=== PATIENT | male | born 1940 | race Caucasian/White ===

== ENCOUNTER 2016-09-18 15:40 | Inpatient (IN) | payer MEDICARE, OTHER ==
[~2016-09-18] VITALS: Ht 165.1 cm; Wt 61.0 kg
[2016-09-18] MEDS ORDERED: ONDANSETRON 4MG/2ML VIAL (J2405) As Ordered ONE (16:06)
[2016-09-18 16:28] LABS: EOS # 0.2 K/mm3 (0.0-0.50); EOS % 1.8 % (0.0-3.0); LARGE UNSTAINED CELL % 0.3 % (0.0-4.0); LYMPH # 1.5 K/mm3 (1.5-4.5); LYMPH % 12.1 % (24.0-44.0); MEAN CORPUSCULAR HGB CONC 31.9 g/dl (32.0-36.5); MEAN CORPUSCULAR VOLUME 97.1 fl (80.0-96.0); MONO # 0.3 K/mm3 (0.0-0.8); MONO % 2.1 % (0.0-5.0); NEUTROPHILS # 10.2 K/mm3 (1.8-7.7); NEUTROPHILS % 83.6 % (36.0-66.0); PLATELET COUNT, AUTOMATED 201 k/mm3 (150-450); RED CELL DISTRIBUTION WIDTH 13.2 % (11.5-14.5); WHITE BLOOD COUNT 12.2 K/mm3 (4.0-10.0)
[2016-09-18 16:36] LABS: INR 1.08; INR 1.1
[2016-09-18] MEDS ORDERED: AMLO5TAB2 PO (16:50)
[2016-09-18] MEDS ORDERED: RAMI5CA PO (16:50)
[2016-09-18] MEDS ORDERED: ATOR40TA PO (16:50)
[2016-09-18] MEDS ORDERED: VITA-122 PO (16:50)
[2016-09-18] MEDS ORDERED: ASPI81CH PO (16:50)
[2016-09-18 16:53] LABS: ANION GAP 16 MEQ/L (8-16); BLOOD UREA NITROGEN 24 MG/DL (7-18); CALCIUM LEVEL 8.8 MG/DL (8.8-10.2); CARBON DIOXIDE LEVEL 20 MEQ/L (21-32); CHLORIDE LEVEL 110 MEQ/L (98-107); GLUCOSE, FASTING 210 MG/DL (83-110); POTASSIUM SERUM 4.6 MEQ/L (3.5-5.1); SODIUM LEVEL 146 MEQ/L (136-145)
--- NOTE | 2016-09-18 17:03 | ECGEPIP ---
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
[2016-09-18] MEDS ORDERED: ACETAMINOPHEN TAB 650MG DOSE (2X325MG) PO PRN (18:15)
--- NOTE | 2016-09-18 18:55 | HPEPDOC ---
General Date of Admission 09/18/2016 - 654PM Chief Complaint The patient is a 76-year-old male Presented to the ER via EMS after he had complaints of SOB and was found to be in ventricular tachycardia. History of Present Illness Patient is a 76 year old male with a PMHx of atrial fibrillation, CAD s/p stent (Hx of MA x 2), HTN, DLP, CKD3, Vitamin D deficiency who presented to the ER via EMS after he experienced SOB. Patient noted that today he bicycled to [facility] and back home. Once he got back home he noted that he began experiencing severe quick onset shortness of breath. He called EMS and they found he was in v.tach. Patient was awake the entire time, did not lose consciousness, denied dizziness, chest pain or palpitations. He noted that he just felt extremely short of breath. He denied any sweating. He did report nausea and vomiting. He vomited about 2-3 times, described as non-bloody, mostly just containing food. He also noted a productive cough that has been there for some time. He reports that he has a history of a heart attack in the past twice. He has received cardiac stenting as well, has never had any heart surgeries. He follows with Dr. Savage as an outpatient. He reports that he is compliant with medications, however he is not sure whether he should still be on anticoagulation. He reports taking Coumadin, but his INR currently is 1.0. He denied any history of bleeding episodes (including blood in stool or urine), denied any episodes of falls or head trauma. He denied any abdominal pain, constipation, diarrhea or urinary symptoms. He denied fever or chills. Home Medications Scheduled (Aspirin) 81 Mg Chw 81 MG PO DAILY (Reported) Amlodipine Besylate (Amlodipine Besylate) 5 Mg Tab 5 MG PO DAILY (Reported) Atorvastatin Calcium (Atorvastatin Calcium) 40 Mg Tab 40 MG PO DAILY (Reported ) Cholecalciferol (Vitamin D3) 1,000 Unit Tab 1,000 UNIT PO DAILY (Reported) Ramipril (Ramipril) 5 Mg Cap 5 MG PO DAILY (Reported) Allergies Coded Allergies: No Known Allergies (Unverified , 09/18/16) Past Medical History Medical History Atrial fibrillation, CAD s/p stent (Hx of MA x 2), HTN, DLP, CKD3, Vitamin D deficiency Surgical History None reported Family History Family History - Non-contributory Social History Social History - Denies the use of illicit drugs, Drinks socially, Smoker of 50 years at < 0.5ppd - Denies recent travel or sick contacts - Lives with sister - Occupation; Worked at [employer] Review of Symptoms Other systems Constitutional: Reports weight loss, No change in appetite, or recent trauma Eyes: No visual changes or eye pain Ears, Nose, Throat: Denies nose bleeds, or difficulty swallowing Cardiovascular: Denies chest pain, sweating, or orthopnea Respiratory: Positive productive cough and shortness of breath, No wheezing GI: Positive nausea and vomiting, No abdominal pain, diarrhea or constipation : Denies pain with urination or frequency Musculoskeletal: Denies joint pain or swelling Neuro / Psych: Denies muscle weakness or sensory loss Skin: No skin rashes noted All other review of systems negative; otherwise stated in history of present illness Vital Signs - Vitals: BP 102/59, HR 92, RR 20, Sat 98%RA, Temp 95.9F - General: Lying in bed, No acute distress, Speaking in full sentences, AAOx3 - HEENT: NC, AT, PERRLA, EOMI - CVS: Irregularly irregular, +S1S2 - Lungs: Fair air entry bilaterally, Clear to auscultation, No wheezing / rales / rhonchi - Abdomen: Soft, Non-distended, Non-tender, + Bowel sounds x 4 - Extremities: + PPx4, No lower extremity edema, No calf tenderness - Neuro: No focal motor or sensory deficit - Skin: No visible rashes Laboratory Data Labs 24H Laboratory Tests 2 09/18/16 16:11: Ethyl Alcohol Level < 0.003 09/18/16 16:13: Prothromb Time International Ratio 1.10, Prothrombin Time 14.3 09/18/16 16:14: Anion Gap 16, B-Type Natriuretic Peptide 381H, White Blood Count 12.2H, Red Blood Count 4.04L, Hemoglobin 12.5L, Hematocrit 39.2L, Mean Corpuscular Volume 97.1H, Mean Corpuscular Hemoglobin 31.0, Mean Corpuscular Hemoglobin Concent 31.9L, Red Cell Distribution Width 13.2, Platelet Count 201, Neutrophils (%) ( Auto) 83.6H, Lymphocytes (%) (Auto) 12.1L, Monocytes (%) (Auto) 2.1, Eosinophils (%) (Auto) 1.8, Basophils (%) (Auto) 0.0, Neutrophils # (Auto) 10.2H , Lymphocytes # (Auto) 1.5, Monocytes # (Auto) 0.3, Eosinophils # (Auto) 0.2, Basophils # (Auto) 0.0, Blood Urea Nitrogen 24H, Creatinine 1.80H, Sodium Level 146H, Potassium Level 4.6, Chloride Level 110H, Carbon Dioxide Level 20L, Calcium Level 8.8, Total Creatine Kinase 122, Creatine Kinase MB 3.2, Creatine Kinase MB Relative Index 2.62, Glomerular Filtration Rate 39.0L, Large Unclassified Cells # 0.0, Large Unclassified Cells % 0.3, Magnesium Level 2.0, Troponin I < 0.02 CBC/BMP Laboratory Tests 09/18/16 16:14 Calcium Level 8.8, Total Creatine Kinase 122, Red Blood Count 4.04 L, Mean Corpuscular Volume 97.1 H, Mean Corpuscular Hemoglobin 31.0, Mean Corpuscular Hemoglobin Concent 31.9 L, Red Cell Distribution Width 13.2, Neutrophils (%) ( Auto) 83.6 H, Lymphocytes (%) (Auto) 12.1 L, Monocytes (%) (Auto) 2.1, Eosinophils (%) (Auto) 1.8, Basophils (%) (Auto) 0.0, Neutrophils # (Auto) 10.2 H, Lymphocytes # (Auto) 1.5, Monocytes # (Auto) 0.3, Eosinophils # (Auto) 0.2, Basophils # (Auto) 0.0 Plan / VTE VTE Prophylaxis Ordered?: Yes Plan Plan Dyspnea likely 2/2 acute onset ventricular tachycardia possibly 2/2 ischemic heart disease - Reports that he exerted himself today resulting in shortness of breath - EMS found that he was in v. tach, had loaded him with amiodarone - Hx of 2 heart attacks in the past requiring stenting - EKG currently shows atrial fibrillation with HR at 100 - First set of troponin is negative - Will follow troponin trend - Will keep in ICU for monitoring - Will order ECHO - Discussed case with Dr. Aguiar (Cardiology); agreed to keep on monitoring for now, will c/w Amiodarone and anticoagulation for atrial fibrillation - Will touch base with regular substation designer Dr. Antecol in AM - c/w Amiodarone 400mg PO BID and Therapeutic Lovenox (Adjusted for GFR) Atrial fibrillation - currently is not on any rate control or anticoagulation - No reported history of bleed to indicate stopping anticoagulation - Started Lovenox therapeutic - c/w ASA 81 CAD s/p stent (Hx of MA x 2) - c/w ASA 81 HTN - will c/w amlodipine with holding parameters - Will hold lisinopril DLP - c/w atorvastatin CKD3 - Creatinine appears to be at baseline Vitamin D deficiency - c/w vitamin D supplementation Gastrointestinal prophylaxis - Will start protonix DVT prophylaxis - Will start full anticoagulation with Lovenox Will sign out case to OLY Bolaños MD Sep 18, 2016 18:55
[2016-09-18] MEDS ORDERED: NS 1,000 ML IV SCH (19:00)
[2016-09-18 19:17] LABS: INR 1.03
[2016-09-18] MEDS ORDERED: ENOXAPARIN 60 MG/0.6 ML SYR (J1650) SC SCH (21:00)
[2016-09-18] MEDS: AMIODARONE 200 MG TAB (PACERONE) PO SCH (21:00)
[2016-09-18] MEDS: METOPROLOL TART 25 MG TABLET PO SCH (21:00)
[2016-09-18] MEDS ORDERED: ENOXAPARIN 60 MG/0.6 ML SYR (J1650) As Ordered ONE (22:52)
[2016-09-18] MEDS ORDERED: METOPROLOL TART 25 MG TABLET As Ordered ONE (22:52)
--- NOTE | 2016-09-18 23:00 | IPNPDOC ---
Text Note Date of Service The patient was seen on 09/18/16. NOTE d/w Dr Aguiar regarding elevated trop and NSVT. c/w anticoagulation, beta dandre added. troponin elevated likely secondary to previous VT episode, No urgent need to transfer as per Dr Aguiar. will continue to follow VSInés, I+O VSInés, I+O Laboratory Tests 09/18/16 16:14 Calcium Level 8.8, Total Creatine Kinase 122, Red Blood Count 4.04 L, Mean Corpuscular Volume 97.1 H, Mean Corpuscular Hemoglobin 31.0, Mean Corpuscular Hemoglobin Concent 31.9 L, Red Cell Distribution Width 13.2, Neutrophils (%) ( Auto) 83.6 H, Lymphocytes (%) (Auto) 12.1 L, Monocytes (%) (Auto) 2.1, Eosinophils (%) (Auto) 1.8, Basophils (%) (Auto) 0.0, Neutrophils # (Auto) 10.2 H, Lymphocytes # (Auto) 1.5, Monocytes # (Auto) 0.3, Eosinophils # (Auto) 0.2, Basophils # (Auto) 0.0 LIZY DC MD Sep 18, 2016 23:00
--- NOTE | 2016-09-19 04:31 | EDDOCDS ---
Physician Documentation [facility] Name: Tushar Quiros Age: 76 yrs Sex: Male : 1940 Arrival Date: 09/18/2016 Time: 15:40 Bed Admit Hold Private MD: Disposition: 09/18 17:22 Critical Care:. osmar Disposition: 09/18/16 17:22 Hospitalization ordered by Nagi Clark for Inpatient Admission. Preliminary diagnosis are Cardiac arrhythmia, unspecified - v tach, Atrial fibrillation and flutter. - Bed requested for M ICU. - Status is Inpatient Admission. af2 - Condition is Stable. - Problem is new. - Symptoms are unchanged. Historical: - Allergies: no known allergies; - Home Meds: 1. Coumadin Oral Unknown 2. amlodipine 5 mg Oral tab 1 tab once daily 3. atorvastatin 40 mg oral tab 1 tab once daily 4. Vitamin D2 50,000 unit oral cap 5. ramipril 5 mg oral cap once daily 6. prednisone 20 mg Oral tab once daily 7. aspirin 81 mg Oral chew 1 tab once daily - PMHx: Atrial Fib; - PSHx: Heart Surgery; - Social history: Smoking status: Patient uses tobacco products, light tobacco smoker. No barriers to communication noted. - Family history: Not pertinent. - : The pt / caregiver states he / she is not on anticoagulants. Home medication list is obtained from the patient. - Exposure Risk Screening:: None identified. Vital Signs: 15:26 Pulse 72 MON; Pulse Ox 99% ; cjh 15:26 BP 101 / 54 (auto/); cjh 15:48 Pulse 89; Resp 20; Temp 95.9(TE); Pulse Ox 93% on 4 lpm NC; Weight 62.14 kg / 137 lbs rs6 (R); Height 5 ft. 5 in. (165.10 cm) (R); Pain 4/10; 15:49 Pulse 104 MON; Pulse Ox 95% ; cjh 15:50 BP 176 / 117 (auto/); cjh 16:31 BP 102 / 59 (auto/); cjh 16:32 Pulse 92 MON; Pulse Ox 98% ; cjh 16:44 BP 100 / 55 (auto/); cjh 16:44 Pulse 94 MON; Pulse Ox 99% ; cjh 17:14 BP 77 / 53 (auto/); cjh 17:14 Pulse 92 MON; Pulse Ox 98% ; cjh 17:27 Pulse 94 MON; Pulse Ox 98% ; cjh 17:28 BP 97 / 61 (auto/); cjh 17:44 BP 106 / 63 (auto/); cjh 17:44 Pulse 100 MON; Pulse Ox 99% ; cjh 17:48 Pulse 102 MON; Pulse Ox 98% ; cjh 17:49 BP 107 / 61 (auto/); cjh 17:56 Temp 96.2(O); lr2 18:14 BP 119 / 76 (auto/); cjh 18:14 Pulse 100 MON; Pulse Ox 99% ; cjh 18:44 BP 116 / 58 (auto/); cjh 18:44 Pulse 96 MON; Pulse Ox 97% ; cjh 19:14 BP 119 / 80 (auto/); cjh 19:14 Pulse 100 MON; Pulse Ox 98% ; cjh 19:44 BP 134 / 91 (auto/); cjh 19:44 Pulse 96 MON; Pulse Ox 99% ; cjh 20:14 BP 146 / 72 (auto/); cjh 20:14 Pulse 100 MON; Pulse Ox 100% ; cjh 20:43 Temp 97.8(O); sep 02:43 Pulse 96 MON; Pulse Ox 99% ; cjh 20:44 BP 136 / 66 (auto/); cjh 21:14 BP 127 / 84 (auto/); cjh 21:14 Pulse 96 MON; Pulse Ox 99% ; cjh 21:43 Pulse 96 MON; Pulse Ox 99% ; cjh 21:44 BP 135 / 65 (auto/); cjh 22:14 BP 141 / 75 (auto/); cjh 22:15 Pulse 102 MON; Temp 98.5(O); Pulse Ox 98% ; cjh 23:14 BP 131 / 74 (auto/); af2 23:15 Pulse 92 MON; Resp 18 S; Pulse Ox 96% on R/A; af2 23:44 BP 132 / 81 (auto/); af2 23:44 Pulse 90 MON; Resp 18 S; Pulse Ox 97% on R/A; af2 0206 00:14 BP 131 / 73 (auto/); af2 00:15 Pulse 78 MON; Resp 20 S; Pulse Ox 97% on R/A; af2 00:44 BP 135 / 88 (auto/); af2 00:45 Pulse 82 MON; Resp 18 S; Pulse Ox 98% on R/A; af2 01:14 BP 125 / 86 (auto/); af2 01:15 Pulse 78 MON; Resp 18 S; Pulse Ox 98% on R/A; af2 01:44 BP 138 / 95 (auto/); af2 01:45 Pulse 78 MON; Resp 18 S; Pulse Ox 96% on R/A; af2 02:14 BP 120 / 80 (auto/); af2 02:15 Pulse 74 MON; Resp 18 S; Pulse Ox 97% on R/A; af2 02:44 BP 131 / 79 (auto/); af2 02:44 Pulse 82 MON; Resp 18 S; af2 03:14 BP 131 / 84 (auto/); Resp 18 S; af2 03:15 Pulse 78 MON; af2 03:44 BP 139 / 74 (auto/); Pulse Ox 97% on R/A; af2 03:45 Pulse 78 MON; Resp 18 S; af2 04:29 Temp 97.9(TE); af2 09/18 15:48 Body Mass Index 22.80 (62.14 kg, 165.10 cm) rs6 MDM: 09/18 15:44 ECG WITH READING ER PHYS+CARDIAG ordered. EDMS 15:48 NS 0.9% 1000 ml IV at 100 mL/hr continuous ordered. ke 15:48 Ondansetron 4 mg IVP once ordered. ke 15:48 Instrument Repairer Helper/Pulse Ox/q 30 min VS ordered. ke 15:48 IV Saline Lock ordered. ke 15:48 Oxygen at 4L/Min NC or Home dosage ordered. ke 15:48 Rhythm Strip to chart ordered. ke 15:48 Undress patient appropriately for examination ordered. ke 15:50 B-Type Natiuretic Peptide Ordered. EDMS 15:50 Basic Metabolic Profile Ordered. EDMS 15:50 CBC with Diff Ordered. EDMS 15:50 Cardiac Injury Profile Ordered. EDMS 15:50 Prothrombin Time Profile\E\INR Ordered. EDMS 15:50 Troponin Ordered. EDMS 15:50 Magnesium Level Ordered. EDMS 15:51 portable chest Ordered. EDMS 15:59 PT/INR Ordered. EDMS 16:34 ETOH Ordered. EDMS 16:37 BED REQUEST+ADM ordered. EDMS 16:44 Financial registration complete. [id number] 16:49 [facility] Payment Agreement was scanned into [employer] and attached to record. [email or web address] 16:59 B-Type Natiuretic Peptide Reviewed. ke 16:59 Basic Metabolic Profile Reviewed. ke 16:59 CBC with Diff Reviewed. ke 16:59 Cardiac Injury Profile Reviewed. ke 16:59 Prothrombin Time Profile\E\INR Reviewed. ke 16:59 Troponin Reviewed. ke 16:59 Magnesium Level Reviewed. ke 16:59 PT/INR Reviewed. ke 16:59 ETOH Reviewed. ke 18:08 Admission / Observation Status ordered. EDMS 18:08 ECHOCARD,DOPPLER/COLOR FLOW ordered. EDMS 18:08 ELECTROCARDIOGRAM ADULT ordered. EDMS 18:08 NPO DIET ordered. EDMS 18:09 CARDIAC INJURY PROFILE Ordered. EDMS 18:09 TROPONIN Ordered. EDMS 18:09 PROTHROMBIN TIME PROFILE\E\INR Ordered. EDMS 18:09 CREATININE,RANDOM URINE Ordered. EDMS 18:09 SODIUM,RANDOM URINE Ordered. EDMS 18:09 OSMOLALITY,URINE Ordered. EDMS 18:40 ARTERIAL BLOOD GAS Ordered. EDMS 19:31 CARDIAC INJURY PROFILE Ordered. EDMS 19:31 CARDIAC INJURY PROFILE Ordered. EDMS 19:31 TROPONIN Ordered. EDMS 19:32 TROPONIN Ordered. EDMS 19:32 PROTHROMBIN TIME PROFILE\E\INR Ordered. EDMS 19:32 CBC WITH DIFFERENTIAL Ordered. EDMS 19:32 COMPLETE COMPHRENSIVE METABOLI Ordered. EDMS 19:32 MAGNESIUM LEVEL Ordered. EDMS 20:37 CARDIAC MARKER PANEL Ordered. EDMS 22:59 Enoxaparin 60 mg Sub-Q once; Ensure no Heparin in past 6hrs. Ensure any baseline labs [facility] are drawn. ordered. 22:59 Metoprolol (Tartrate) 25 mg PO once ordered. [facility] 23:26 amiodarone 400 mg PO once ordered. af2 09/19 04:14 MRSA SCREEN Ordered. EDMS Administered Medications: 09/18 16:01 Drug: NS 0.9% 1000 ml Route: IV; Rate: 100 mL/hr; Site: right forearm; [facility] 16:09 Drug: Ondansetron 4 mg [ondansetron HCl 2 mg/mL intravenous solution (2 mL)] Route: lf1 IVP; Site: right antecubital; 23:00 Drug: Enoxaparin 60 mg {Co-Signature: af2 (Madison Carter RN).} Route: Sub-Q; Site: left [facility] upper abdomen; 23:00 Drug: Metoprolol (Tartrate) 25 mg Route: PO; [facility] 23:58 Drug: amiodarone 400 mg [amiodarone 200 mg tablet (2 tabs)] Route: PO; af2 Critical Care Time: 17:22 Critical care time: Bedside Care: 10 minutes, Consultation: 20 minutes. Total time: 30 ke minutes Signatures: Dispatcher [employer] EDMS Dm Galarza, DIRECTOR OF ENTERPRISE STRATEGY DIRECTOR OF ENTERPRISE STRATEGY Jayant Copeland, Professor Of Law Unit ml3 Eileen Hyde RN RN [facility] Raul,Madison,RN RN af2 Estefanía Adame, Reg Reg [id number] Barbara Pruett RN lf1 Madison Carter RN af2 The chart was reviewed and I authenticate all verbal orders and agree with the evaluation and treatment provided.Attachments: 16:49 [facility] Payment Agreement [email or web address]
--- NOTE | 2016-09-19 04:31 | EDDOCDS ---
Nurse's Notes [facility] Name: Tushar Morris Age: 76 yrs Sex: Male : 1940 Arrival Date: 09/18/2016 Time: 15:40 Bed Admit Hold Private MD: Diagnosis: Cardiac arrhythmia, unspecified-v tach;Atrial fibrillation and flutter Presentation: 09/18 15:52 Presenting complaint: EMS states: called on scene by roommate who states patient [facility] returned from riding bike to [employer] and looks sick, patient reports SOB and abdominal pain. placed on monitor shows VTach, amiodarone and Zofran given in rig. Unable to determine if aspirin was taken prior to arrival. Adult Sepsis Screening: The patient does not have new or worsening altered mentation. Patient's respiratory rate is less than 22. Systolic blood pressure is greater than 100. Patient has a qSOFA score of 0- Negative Sepsis Screen. Suicide/Homicide risk assessment- Unable to assess, the patient is critically ill. 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 Transition of care: patient was not received from another setting of care. Care prior to arrival: See EMS report. Medications administered prior to arrival: zofran and amiodarone Saline lock initiated. Oxygen administered by EMS. 15:52 Acuity: RUDDY Level 2 [facility] 15:52 Method Of Arrival: Ambulance [facility] Triage Assessment: 15:57 General: Appears ill, Behavior is cooperative. [facility] 16:02 Pain: Location: abdomen Pain currently is 4 out of 10 on a pain scale. Pain began 4 cjh hours ago. The patient is triaged at the bedside. See Assessment in Nurses Notes section of ED record. Neurological: Level of Consciousness is awake, alert, Oriented to person, place, time. Cardiovascular: Chest pain is denied is described as none. radiates Does not radiate. episodes none began none. Respiratory: Airway is patent Respiratory effort is even, unlabored, Respiratory pattern is regular, symmetrical, Breath sounds with wheezes bilaterally. GI: Abdomen is distended, Bowel sounds Abd is tender to palpation X 4 quads. Firm. Derm: Skin is pale, Skin temperature is cool. Historical: - Allergies: no known allergies; - Home Meds: 1. Coumadin Oral Unknown 2. amlodipine 5 mg Oral tab 1 tab once daily 3. atorvastatin 40 mg oral tab 1 tab once daily 4. Vitamin D2 50,000 unit oral cap 5. ramipril 5 mg oral cap once daily 6. prednisone 20 mg Oral tab once daily 7. aspirin 81 mg Oral chew 1 tab once daily - PMHx: Atrial Fib; - PSHx: Heart Surgery; - Social history: Smoking status: Patient uses tobacco products, light tobacco smoker. No barriers to communication noted. - Family history: Not pertinent. - : The pt / caregiver states he / she is not on anticoagulants. Home medication list is obtained from the patient. - Exposure Risk Screening:: None identified. Screenin:26 Screening information is obtained from the patient. Fall risk: No risks identified. cjh Assistance ADL's: requires no assistance with activities of daily living. Abuse/DV Screen: The patient / caregiver reports he/she is: not in a situation that causes fear, pain or injury. Nutritional screening: No deficits noted. Advance Directives: Currently, there is a health care proxy, Aurelia Andreia, blaise [phone] cell. Advance Directives: There is no active DNR order. There is a living will, but a copy is not available at this time. There is an active Power of K9 Handler, aurelia escobar. home support is adequate. Assessment: 16:41 General: see bedside triage assessment. Cardiovascular: Rhythm is atrial fibrillation cjh Chest pain is denied. 17:19 General: family at bedside, warm blankets and lights applied, patient appears more cjh comfortable and states feeling less cold. 18:30 General: resting quietly, appears more comfortable, trebling and shaking has cjh diminished, no new problems or complaints, will continue to monitor. 19:50 General: Appears in no apparent distress, comfortable, Behavior is appropriate for age, cjh cooperative, patient states he is feeling much better and is awaiting admission, denies further needs, continues covered in blankets, no visible distress. 20:30 General: patient requesting a meal, discussed NPO status per admission order, patient cjh cooperative and pleasant. 21:30 General: Appears in no apparent distress, comfortable, Behavior is appropriate for age, cjh cooperative, turned, positioned and assisted with comfort on stretcher, urinal provided, patient voided very small amount clear yellow urine, no new problems or complaints voiced. Pain: Denies pain. Neurological: Level of Consciousness is awake, alert, Oriented to person, place, time. Respiratory: Airway is patent Respiratory effort is even, unlabored, Respiratory pattern is regular, symmetrical. Derm: Skin is pink, warm & dry. 23:00 General: Appears in no apparent distress, comfortable, Behavior is appropriate for age, af2 cooperative, Assumed care of pt at this time, pt resting quietly with eyes closed. RR even and unlabored. . Neurological: Level of Consciousness is awake, alert, Oriented to person, place, time. Cardiovascular: Rhythm is atrial fibrillation. Respiratory: Airway is patent Respiratory effort is even, unlabored. Derm: Skin is pink, warm & dry. 09/19 00:00 General: Appears in no apparent distress, comfortable, Behavior is appropriate for age, af2 cooperative. Neurological: Level of Consciousness is awake, alert, Oriented to person, place, time. Cardiovascular: Rhythm is atrial fibrillation. Respiratory: Airway is patent Respiratory effort is even, unlabored. Derm: Skin is normal. 01:06 General: Appears in no apparent distress, comfortable, Behavior is appropriate for age, af2 cooperative. Neurological: Level of Consciousness is awake, alert, Oriented to person, place, time. Cardiovascular: Rhythm is atrial fibrillation. Respiratory: Airway is patent Respiratory effort is even, unlabored. Derm: Skin is normal. 02:17 General: Appears in no apparent distress, comfortable, Behavior is appropriate for age, af2 cooperative. Neurological: Level of Consciousness is awake, alert. Cardiovascular: Rhythm is atrial fibrillation. Respiratory: Airway is patent Respiratory effort is even, unlabored. Derm: Skin is normal. 03:15 General: Appears in no apparent distress, comfortable, Behavior is appropriate for age, af2 cooperative. Neurological: Level of Consciousness is awake, alert, Oriented to person, place, time. Cardiovascular: Rhythm is atrial fibrillation. Respiratory: Airway is patent Respiratory effort is even, unlabored. Derm: Skin is normal. 04:16 General: Appears in no apparent distress, comfortable, Behavior is appropriate for age, af2 cooperative, pt resting quietly with eyes closed, rr even and unlabored. . Cardiovascular: Rhythm is atrial fibrillation. Respiratory: Airway is patent Respiratory effort is even, unlabored. Derm: Skin is normal. Vital Signs: 09/18 15:26 Pulse 72 MON; Pulse Ox 99% ; cjh 15:26 BP 101 / 54 (auto/); cjh 15:48 Pulse 89; Resp 20; Temp 95.9(TE); Pulse Ox 93% on 4 lpm NC; Weight 62.14 kg (R); Height rs6 5 ft. 5 in. (165.10 cm) (R); Pain 4/10; 15:49 Pulse 104 MON; Pulse Ox 95% ; cjh 15:50 BP 176 / 117 (auto/); cjh 16:31 BP 102 / 59 (auto/); cjh 16:32 Pulse 92 MON; Pulse Ox 98% ; cjh 16:44 BP 100 / 55 (auto/); cjh 16:44 Pulse 94 MON; Pulse Ox 99% ; cjh 17:14 BP 77 / 53 (auto/); cjh 17:14 Pulse 92 MON; Pulse Ox 98% ; cjh 17:27 Pulse 94 MON; Pulse Ox 98% ; cjh 17:28 BP 97 / 61 (auto/); cjh 17:44 BP 106 / 63 (auto/); cjh 17:44 Pulse 100 MON; Pulse Ox 99% ; cjh 17:48 Pulse 102 MON; Pulse Ox 98% ; cjh 17:49 BP 107 / 61 (auto/); cjh 17:56 Temp 96.2(O); lr2 18:14 BP 119 / 76 (auto/); cjh 18:14 Pulse 100 MON; Pulse Ox 99% ; cjh 18:44 BP 116 / 58 (auto/); cjh 18:44 Pulse 96 MON; Pulse Ox 97% ; cjh 19:14 BP 119 / 80 (auto/); cjh 19:14 Pulse 100 MON; Pulse Ox 98% ; cjh 19:44 BP 134 / 91 (auto/); cjh 19:44 Pulse 96 MON; Pulse Ox 99% ; cjh 20:14 BP 146 / 72 (auto/); cjh 20:14 Pulse 100 MON; Pulse Ox 100% ; cjh 20:43 Temp 97.8(O); sep 02:43 Pulse 96 MON; Pulse Ox 99% ; cjh 20:44 BP 136 / 66 (auto/); cjh 21:14 BP 127 / 84 (auto/); cjh 21:14 Pulse 96 MON; Pulse Ox 99% ; cjh 21:43 Pulse 96 MON; Pulse Ox 99% ; cjh 21:44 BP 135 / 65 (auto/); cjh 22:14 BP 141 / 75 (auto/); cjh 22:15 Pulse 102 MON; Temp 98.5(O); Pulse Ox 98% ; cjh 23:14 BP 131 / 74 (auto/); af2 23:15 Pulse 92 MON; Resp 18 S; Pulse Ox 96% on R/A; af2 23:44 BP 132 / 81 (auto/); af2 23:44 Pulse 90 MON; Resp 18 S; Pulse Ox 97% on R/A; af2 09/19 00:14 BP 131 / 73 (auto/); af2 00:15 Pulse 78 MON; Resp 20 S; Pulse Ox 97% on R/A; af2 00:44 BP 135 / 88 (auto/); af2 00:45 Pulse 82 MON; Resp 18 S; Pulse Ox 98% on R/A; af2 01:14 BP 125 / 86 (auto/); af2 01:15 Pulse 78 MON; Resp 18 S; Pulse Ox 98% on R/A; af2 01:44 BP 138 / 95 (auto/); af2 01:45 Pulse 78 MON; Resp 18 S; Pulse Ox 96% on R/A; af2 02:14 BP 120 / 80 (auto/); af2 02:15 Pulse 74 MON; Resp 18 S; Pulse Ox 97% on R/A; af2 02:44 BP 131 / 79 (auto/); af2 02:44 Pulse 82 MON; Resp 18 S; af2 03:14 BP 131 / 84 (auto/); Resp 18 S; af2 03:15 Pulse 78 MON; af2 03:44 BP 139 / 74 (auto/); Pulse Ox 97% on R/A; af2 03:45 Pulse 78 MON; Resp 18 S; af2 04:29 Temp 97.9(TE); af2 09/18 15:48 Body Mass Index 22.80 (62.14 kg, 165.10 cm) rs6 Vitals: 09/18 15:48 Log In Time N/A - ambulance arrival. rs6 ED Course: 15:26 The patient / caregiver is instructed regarding the plan of care and ED course. [facility] 15:26 Maintain field IV. Site clean & dry. Gauge & site: 20 gauge right forearm. 15:41 Patient visited by Jannet Nelson PCA. ar3 15:41 Patient moved to Waiting ar3 15:42 Patient moved to 4 ar3 15:47 [facility] ke 15:47 Patient visited by Dm Galarza FNP. ke 15:47 Patient visited by Dm Galarza FNP. ke 15:48 Pt greeted and oriented to ED. Patient advised of names of staff involved in care, rs6 location of call [place], wait times and NPO status. Patient has correct armband on for positive identification. Placed in gown. Bed in low position. Call light in reach. Side rails up X 1. wastewater treatment plant supervisor on. Pulse ox on. NIBP on. 15:49 Patient visited by Gina Gomez PCA. rs6 15:54 Triage Initiated cj 15:55 Patient visited by Gina Gomez PCA. rs6 15:55 EKG done. (by ED staff). Reviewed by Dm LEVY. rs6 16:35 Patient visited by Dm Galarza FNP. ke 16:49 [facility] Payment Agreement was scanned into Tile and attached to record. ks16 17:01 Patient visited by Dm Galarza FNP. ke 17:07 Verbal reassurance given. Warm blanket given. rs6 17:08 Patient visited by Gina Gomez PCA. rs6 17:19 EKG-ADULT Returned. EDMS 17:21 Nagi Clark MD is Hospitalizing Provider. ke 21:58 Patient moved to Admit Hold ml3 22:15 No procedures done that require assistance. [facility] 02 00:02 Patient visited by Madison Carter RN. af2 01:07 Patient visited by Madison CarterRN. af2 02:19 Patient visited by Madison Carter RN. af2 04:18 Patient visited by Madison Carter RN. af2 Administered Medications: 09/18 16:01 Drug: NS 0.9% 1000 ml Route: IV; Rate: 100 mL/hr; Site: right forearm; [facility] 16:09 Drug: Ondansetron 4 mg [ondansetron HCl 2 mg/mL intravenous solution (2 mL)] Route: lf1 IVP; Site: right antecubital; 23:00 Drug: Enoxaparin 60 mg {Co-Signature: af2 (Madison Carter RN).} Route: Sub-Q; Site: left [facility] upper abdomen; 23:00 Drug: Metoprolol (Tartrate) 25 mg Route: PO; [facility] 23:58 Drug: amiodarone 400 mg [amiodarone 200 mg tablet (2 tabs)] Route: PO; af2 Order Results: Lab Order: B-Type Natiuretic Peptide; SPEC'M 09/18/16 16:14 Test: BRAIN NATRIURETIC PEPTIDE; Value: 381; Range: <100; Abnormal: Above high normal; Units: PG/ML; Status: F Lab Order: Basic Metabolic Profile; SPEC' 09/18/16 16:14 Test: GLUCOSE, FASTING; Value: 210; Range: 83-110; Abnormal: Above high normal; Units: MG/DL; Status: F Test: BLOOD UREA NITROGEN; Value: 24; Range: 7-18; Abnormal: Above high normal; Units: MG/DL; Status: F Test: CREATININE FOR GFR; Value: 1.80; Range: 0.70-1.30; Abnormal: Above high normal; Units: MG/DL; Status: F Test: GLOMERULAR FILTRATION RATE; Value: 39.0; Range: >42; Abnormal: Below low normal; Status: F Test: SODIUM LEVEL; Value: 146; Range: 136-145; Abnormal: Above high normal; Units: MEQ/L; Status: F Test: POTASSIUM SERUM; Value: 4.6; Range: 3.5-5.1; Units: MEQ/L; Status: F Test: CHLORIDE LEVEL; Value: 110; Range: 98-107; Abnormal: Above high normal; Units: MEQ/L; Status: F Test: CARBON DIOXIDE LEVEL; Value: 20; Range: 21-32; Abnormal: Below low normal; Units: MEQ/L; Status: F Test: ANION GAP; Value: 16; Range: 8-16; Units: MEQ/L; Status: F Test: CALCIUM LEVEL; Value: 8.8; Range: 8.8-10.2; Units: MG/DL; Status: F Test Note: ; Units are mL/min/1.73 m2 Chronic Kidney Disease Staging per NKF: Stage I & II GFR >=60 Normal to Mildly Decreased Stage III GFR 30-59 Moderately Decreased Stage IV GFR 15-29 Severely Decreased Stage V GFR <15 Very Little GFR Left ESRD GFR <15 on HEALTH PROMOTION OFFICER Lab Order: CBC with Diff; SPEC'M 09/18/16 16:14 Test: WHITE BLOOD COUNT; Value: 12.2; Range: 4.0-10.0; Abnormal: Above high normal; Units: K/mm3; Status: F Test: RED BLOOD COUNT; Value: 4.04; Range: 4.30-6.10; Abnormal: Below low normal; Units: M/mm3; Status: F Test: HEMOGLOBIN; Value: 12.5; Range: 14.0-18.0; Abnormal: Below low normal; Units: g/dl; Status: F Test: HEMATOCRIT; Value: 39.2; Range: 42.0-52.0; Abnormal: Below low normal; Units: %; Status: F Test: MEAN CORPUSCULAR VOLUME; Value: 97.1; Range: 80.0-96.0; Abnormal: Above high normal; Units: fl; Status: F Test: MEAN CORPUSCULAR HEMOGLOBIN; Value: 31.0; Range: 27.0-33.0; Units: pg; Status: F Test: MEAN CORPUSCULAR HGB CONC; Value: 31.9; Range: 32.0-36.5; Abnormal: Below low normal; Units: g/dl; Status: F Test: RED CELL DISTRIBUTION WIDTH; Value: 13.2; Range: 11.5-14.5; Units: %; Status: F Test: PLATELET COUNT, AUTOMATED; Value: 201; Range: 150-450; Units: k/mm3; Status: F Test: NEUTROPHILS %; Value: 83.6; Range: 36.0-66.0; Abnormal: Above high normal; Units: %; Status: F Test: LYMPH %; Value: 12.1; Range: 24.0-44.0; Abnormal: Below low normal; Units: %; Status: F Test: MONO %; Value: 2.1; Range: 0.0-5.0; Units: %; Status: F Test: EOS %; Value: 1.8; Range: 0.0-3.0; Units: %; Status: F Test: BASO %; Value: 0.0; Range: 0.0-1.0; Units: %; Status: F Test: LARGE UNSTAINED CELL %; Value: 0.3; Range: 0.0-4.0; Units: %; Status: F Test: NEUTROPHILS #; Value: 10.2; Range: 1.8-7.7; Abnormal: Above high normal; Units: K/mm3; Status: F Test: LYMPH #; Value: 1.5; Range: 1.5-4.5; Units: K/mm3; Status: F Test: MONO #; Value: 0.3; Range: 0.0-0.8; Units: K/mm3; Status: F Test: EOS #; Value: 0.2; Range: 0.0-0.50; Units: K/mm3; Status: F Test: BASO #; Value: 0.0; Range: 0.0-0.2; Units: K/mm3; Status: F Test: LARGE UNSTAINED CELL #; Value: 0.0; Range: 0.0-0.4; Units: K/mm3; Status: F Lab Order: Cardiac Injury Profile; SPEC'M 09/18/16 16:14 Test: CPK CREATINE PHOSPHOKINASE; Value: 122; Range: 39-308; Units: U/L; Status: F Test: CK-MB VALUE MASS; Value: 3.2; Range: 0.0-3.6; Units: NG/ML; Status: F Test: MB/CK RELATIVE INDEX; Value: 2.62; Range: < OR =4; Status: F Test Note: ; DIAGNOSIS CRITERIA MMB ng/ml Relative Index (RI) NON-AMI < or = 5 N/A [place] > 5 < or = 4 AMI > 5 > 4 Lab Order: Prothrombin Time Profile\E\INR; SPEC'M 09/18/16 16:13 Test: PROTHROMBIN TIME; Value: 14.1; Range: 12.3-14.5; Units: SECONDS; Status: F Test: INR; Value: 1.08; Status: F Test Note: ; THERAPUTIC HUMAN INR VALUES INDICATIONS NORMAL RANGES PROPHYLAXIS/TREATMENT OF: VENOUS THROMBOSIS 2.0-3.0 PULMONARY EMBOLISM 2.0-3.0 PREVENTION OF SYSTEMIC EMBOLISM FROM: TISSUE HEART VALVES 2.0-3.0 ACUTE MYOCARDIAL INFARCTION 2.0-3.0 VALVULAR HEART DISEASE 2.0-3.0 ATRIAL FIBRILLATION 2.0-3.0 MECHANICAL VALVES(HIGH RISK) 2.5-3.5 RECURRENT MYOCARDIAL INFARCTION 2.5-3.5 Lab Order: Troponin; [facility] 09/18/16 16:14 Test: TROPONIN I; Value: < 0.02; Range: < 0.10; Units: NG/ML; Status: F Test Note: ; Troponin I Reference Interval for [employer] LOCI: 99th Percentile= 0.00-0.045 ng/ml Risk Stratification: <= 0.10 ng/ml Decreased Risk for Adverse Clinical Events. 0.10-1.50 ng/ml Increased Risk for Adverse Clinical Events. Evaluation of additional criterion and/or repeat testing in 2-6 hours is suggested to rule out myocardial damage. >= 1.50 ng/ml Indicative of Myocardial Injury. Lab Order: Magnesium Level; [facility] 09/18/16 16:14 Test: MAGNESIUM LEVEL; Value: 2.0; Range: 1.8-2.4; Units: MG/DL; Status: F Lab Order: PT/INR; [facility] 09/18/16 16:13 Test: PROTHROMBIN TIME; Value: 14.3; Range: 12.3-14.5; Units: SECONDS; Status: F Test: INR; Value: 1.10; Status: F Test Note: ; THERAPUTIC HUMAN INR VALUES INDICATIONS NORMAL RANGES PROPHYLAXIS/TREATMENT OF: VENOUS THROMBOSIS 2.0-3.0 PULMONARY EMBOLISM 2.0-3.0 PREVENTION OF SYSTEMIC EMBOLISM FROM: TISSUE HEART VALVES 2.0-3.0 ACUTE MYOCARDIAL INFARCTION 2.0-3.0 VALVULAR HEART DISEASE 2.0-3.0 ATRIAL FIBRILLATION 2.0-3.0 MECHANICAL VALVES(HIGH RISK) 2.5-3.5 RECURRENT MYOCARDIAL INFARCTION 2.5-3.5 Lab Order: ETOH; [facility] 16:11 Test: ETHYL ALCOHOL (ETHANOL); Value: < 0.003; Range: 0.000-0.010; Units: %; Status: F Lab Order: CARDIAC INJURY PROFILE; [facility] 21:56 Test: CPK CREATINE PHOSPHOKINASE; Value: 119; Range: 39-308; Units: U/L; Status: F Test: CK-MB VALUE MASS; Value: 5.3; Range: 0.0-3.6; Abnormal: Above high normal; Units: NG/ML; Status: F Test: MB/CK RELATIVE INDEX; Value: 4.45; Range: < OR =4; Abnormal: Above high normal; Status: F Test Note: ; DIAGNOSIS CRITERIA MMB ng/ml Relative Index (RI) NON-AMI < or = 5 N/A [place] > 5 < or = 4 AMI > 5 > 4 Lab Order: TROPONIN; [facility] 21:56 Test: TROPONIN I; Value: 0.50; Range: < 0.10; Abnormal: High; Units: NG/ML; Status: F Test Note: ; Troponin I Reference Interval for [employer]ep[employer] LOCI: 99th Percentile= 0.00-0.045 ng/ml Risk Stratification: <= 0.10 ng/ml Decreased Risk for Adverse Clinical Events. 0.10-1.50 ng/ml Increased Risk for Adverse Clinical Events. Evaluation of additional criterion and/or repeat testing in 2-6 hours is suggested to rule out myocardial damage. >= 1.50 ng/ml Indicative of Myocardial Injury. Lab Order: PROTHROMBIN TIME PROFILE\E\INR; [facility]09/[facility] 19:02 Test: PROTHROMBIN TIME; Value: 13.6; Range: 12.3-14.5; Units: SECONDS; Status: F Test: INR; Value: 1.03; Status: F Test Note: ; THERAPUTIC HUMAN INR VALUES INDICATIONS NORMAL RANGES PROPHYLAXIS/TREATMENT OF: VENOUS THROMBOSIS 2.0-3.0 PULMONARY EMBOLISM 2.0-3.0 PREVENTION OF SYSTEMIC EMBOLISM FROM: TISSUE HEART VALVES 2.0-3.0 ACUTE MYOCARDIAL INFARCTION 2.0-3.0 VALVULAR HEART DISEASE 2.0-3.0 ATRIAL FIBRILLATION 2.0-3.0 MECHANICAL VALVES(HIGH RISK) 2.5-3.5 RECURRENT MYOCARDIAL INFARCTION 2.5-3.5 Lab Order: CARDIAC MARKER PANEL; [facility] 20:41 Test: CPK CREATINE PHOSPHOKINASE; Value: 109; Range: 39-308; Units: U/L; Status: F Test: CK-MB VALUE MASS; Value: 4.3; Range: 0.0-3.6; Abnormal: Above high normal; Units: NG/ML; Status: F Test: MB/CK RELATIVE INDEX; Value: 3.94; Range: < OR =4; Status: F Test: TROPONIN I; Value: 0.31; Range: < 0.10; Abnormal: High; Units: NG/ML; Status: F Test Note: ; DIAGNOSIS CRITERIA MMB ng/ml Relative Index (RI) NON-AMI < or = 5 N/A [place] > 5 < or = 4 AMI > 5 > 4 Radiology Order: EKG-ADULT Test: EKG-ADULT REASON FOR EXAMINATION: irregular heart rate; Stationary ECG Study; [facility] - ED; ; Test Date: 2016-09-18; Pat Name: TUSHAR MORRIS Department:; Room: -; Gender: M Iron Carrier: juan carlos; : 1940 Requested By: DM LEVY; Order Number: [id number] Reading MD: Wilbert Walsh; Measurements; Intervals [place]; Rate: 100 P:; NV: 0 QRS: 58; QRSD: 106 T: 157; QT: 374; QTc: 483; Interpretive Statements; ATRIAL FIBRILLATION WITH RAPID VENTRICULAR RESPONSE; NONSPECIFIC ST T-WAVE ABNORMALITY; PRIOR INFERIOR INFARCT; SIMILAR TO 07/29/16; Electronically Signed On 09-18-2016 17:03:38 EST by Wilbert Walsh; Outcome: 17:22 Decision to Hospitalize by Provider. 09/19 04:27 Discharge Assessment: Patient awake, alert and oriented x 3. No cognitive and/or af2 functional deficits noted. Patient verbalized understanding of disposition instructions. patient administered narcotics - no. The following High Risk Discharge criteria are identified: None. Admitted to ICU accompanied by nurse, accompanied by tech, via stretcher, on monitor, with chart. Condition: stable. No special radiology studies were completed. Property :Personal belongings accompany Pt. 04:29 Patient left the ED. af2 Signatures: Dispatcher [employer] EDMS Taylor Mendoza RN RN jan Elsner, Karl, FNP FNP ke Lopresti, Mary-Elizabeth, [employer] [facility] ml3 Barbara Pruett RN RN lf1 Jannet Nelson, OFFICE SERVICES ASSOCIATE OFFICE SERVICES ASSOCIATE ar3 Eileen Hyde,RN RN cjh Gina Gomez, OFFICE SERVICES ASSOCIATE OFFICE SERVICES ASSOCIATE rs6 Raul,Madison,RN RN af2 Estefanía Adame, Reg Reg ks16 aSfia Vega lr2 Madison Carter RN af2 MTDD
[2016-09-19 04:41] VITALS: BP 146/79
--- NOTE | 2016-09-19 05:49 | REP ---
Sitting portable chest x-ray: Single view. History: Shortness of breath. Comparison study June 25, 2016. Findings: EKG monitoring electrodes overlie the chest. Heart is not enlarged. Lungs are well inflated and clear. Pleural angles are sharp. Pulmonary vasculature is not increased. The aorta is calcific and tortuous. There is an old healed fracture of the right clavicle. Degenerative changes are seen in the shoulders. Impression: No acute disease. Signed by Billy Hernandez MD 09/19/2016 02:24 P
[2016-09-19 06:10] LABS: BASO % 0.1 % (0.0-1.0); EOS # 0.4 K/mm3 (0.0-0.50); EOS % 3.6 % (0.0-3.0); LARGE UNSTAINED CELL # 0.1 K/mm3 (0.0-0.4); LARGE UNSTAINED CELL % 0.8 % (0.0-4.0); LYMPH # 1.5 K/mm3 (1.5-4.5); LYMPH % 13.4 % (24.0-44.0); MEAN CORPUSCULAR HEMOGLOBIN 31.2 pg (27.0-33.0); MEAN CORPUSCULAR HGB CONC 33.1 g/dl (32.0-36.5); MEAN CORPUSCULAR VOLUME 94.2 fl (80.0-96.0); MONO # 0.6 K/mm3 (0.0-0.8); MONO % 5.5 % (0.0-5.0); NEUTROPHILS # 8.3 K/mm3 (1.8-7.7); NEUTROPHILS % 76.4 % (36.0-66.0); PLATELET COUNT, AUTOMATED 192 k/mm3 (150-450); RED CELL DISTRIBUTION WIDTH 13.2 % (11.5-14.5); WHITE BLOOD COUNT 10.9 K/mm3 (4.0-10.0)
[2016-09-19 06:34] LABS: ALBUMIN 3.7 GM/DL (3.2-5.2); ALBUMIN/GLOBULIN RATIO 1.16 (1.00-1.93); BILIRUBIN,TOTAL 0.6 MG/DL (0.2-1.0); CALCIUM LEVEL 8.7 MG/DL (8.8-10.2); CREATININE FOR GFR 1.25 MG/DL (0.70-1.30); GLOMERULAR FILTRATION RATE 59.5 (>42); POTASSIUM SERUM 4.1 MEQ/L (3.5-5.1); TOTAL PROTEIN 6.9 GM/DL (6.4-8.2)
[2016-09-19 08:01] VITALS: BP 115/69
[2016-09-19 08:04] VITALS: BP 115/69
[2016-09-19] MEDS: METOPROLOL TART 25 MG TABLET PO SCH (08:05)
[2016-09-19] MEDS: AMIODARONE 200 MG TAB (PACERONE) PO SCH (08:05)
--- NOTE | 2016-09-19 08:11 | DS.PDOC ---
Discharge Summary General Date of Admission Sep 18, 2016 at 18:01 Date of Discharge 09/19/2016 Discharge Summary DATE OF ADMISSION: 09/18/2016 DATE OF DISCHARGE: 09/19/2016 PRIMARY CARE PHYSICIAN: Philly Primary geological aide: Dr. Savage DISCHARGE DIAGNOS(E)S: Sustained V. tach Elevated troponin HPI & HOSPITAL COURSE: 76-year-old male with chronic A. fib, CAD status post PCI, history of AR 2, hypertension, hyperlipidemia, CK D stage III, vitamin D deficiency who presented with shortness of breath. When EMS arrived to him, they noted that he was in sustained V. tach. He had associated nausea and vomiting, but no chest pain. EMS administered amiodarone, and by the time he arrived in the ER, the V. tach had broken and he was in A. fib at a rate of approximately 100. His initial troponin was negative. The patient was continued on oral amiodarone, as well as started on treatment dose Lovenox and beta dandre. Throughout the night , he had several episodes of nonsustained V. tach, and his troponin has bumped to 1.21. He still does not have any chest pain. His primary geological aide, Dr. Savage, is recommending transfer to [facility] for cardiac cath as well as possible defibrillator. I have spoken to Dr. Coulter at [facility], who has graciously accept the patient onto his service. At this time, we'll transfer the patient to Dr. Coulter at [facility] in [place]. The patient's creatinine this morning is 1.25, which appears to be around his baseline of the low to mid ones. PHYSICAL EXAMINATION ON DISCHARGE: VITAL SIGNS: Vital Signs Date Time Temp Pulse Resp B/P Pulse Ox O2 Delivery O2 Flow Rate FiO2 09/19/16 08:05 90 09/19/16 08:04 115/69 09/19/16 08:01 18 94 Room Air 09/19/16 04:41 97.3 GENERAL: Awake, alert, no acute distress CARDIOVASCULAR EXAMINATION: Irregularly irregular RESPIRATORY EXAMINATION: Prolonged expiratory phase, with diffuse wheezes ABDOMINAL EXAMINATION: Soft, nontender, nondistended. Bowel sounds present. EXTREMITIES: No clubbing or edema noted. 2+ pulses in the radial bilaterally. NEURO: Alert and oriented 3, normal speech DISPOSITION: Transfer to [facility] on the service of Dr. Coulter Patient was seen and examined by me on the day of discharge, and I spent a total time of greater than than 30 minutes on this discharge. Vital Signs/I&Os Vital Signs Date Time Temp Pulse Resp B/P Pulse Ox O2 Delivery O2 Flow Rate FiO2 09/19/16 08:05 90 09/19/16 08:04 115/69 09/19/16 08:01 18 94 Room Air 09/19/16 04:41 97.3 I&O- Last 24 Hours up to 6 AM 09/19/16 06:00 Intake Total 0 ml Output Total 300 ml Balance -300 ml Laboratory Data Labs 24H Laboratory Tests 2 09/18/16 16:11: Ethyl Alcohol Level < 0.003 09/18/16 16:13: Prothromb Time International Ratio 1.10, Prothrombin Time 14.3 09/18/16 16:14: Anion Gap 16, B-Type Natriuretic Peptide 381H, White Blood Count 12.2H, Red Blood Count 4.04L, Hemoglobin 12.5L, Hematocrit 39.2L, Mean Corpuscular Volume 97.1H, Mean Corpuscular Hemoglobin 31.0, Mean Corpuscular Hemoglobin Concent 31.9L, Red Cell Distribution Width 13.2, Platelet Count 201, Neutrophils (%) ( Auto) 83.6H, Lymphocytes (%) (Auto) 12.1L, Monocytes (%) (Auto) 2.1, Eosinophils (%) (Auto) 1.8, Basophils (%) (Auto) 0.0, Neutrophils # (Auto) 10.2H , Lymphocytes # (Auto) 1.5, Monocytes # (Auto) 0.3, Eosinophils # (Auto) 0.2, Basophils # (Auto) 0.0, Blood Urea Nitrogen 24H, Creatinine 1.80H, Sodium Level 146H, Potassium Level 4.6, Chloride Level 110H, Carbon Dioxide Level 20L, Calcium Level 8.8, Total Creatine Kinase 122, Creatine Kinase MB 3.2, Creatine Kinase MB Relative Index 2.62, Glomerular Filtration Rate 39.0L, Large Unclassified Cells # 0.0, Large Unclassified Cells % 0.3, Magnesium Level 2.0, Troponin I < 0.02 09/18/16 19:02: Prothromb Time International Ratio 1.03, Prothrombin Time 13.6 09/18/16 20:41: Creatine Kinase MB 4.3H, Creatine Kinase MB Relative Index 3.94, Total Creatine Kinase 109, Troponin I 0.31#H 09/18/16 21:56: Creatine Kinase MB 5.3H, Creatine Kinase MB Relative Index 4.45H, Total Creatine Kinase 119, Troponin I 0.50#H 09/19/16 05:40: Urine Random Creatinine 149.0, Urine Random Osmolality 773, Urine Random Sodium 162 09/19/16 05:56: Creatine Kinase MB 8.3H, Creatine Kinase MB Relative Index 4.97H, Total Creatine Kinase 167, Troponin I 1.21#H, Blood Urea Nitrogen 23H, Creatinine 1.25 , Sodium Level 145, Potassium Level 4.1, Chloride Level 111H, Carbon Dioxide Level 24, Calcium Level 8.7L, Aspartate Amino Transf (AST/SGOT) 27, Alanine Aminotransferase (ALT/SGPT) 28, Alkaline Phosphatase 87, Total Bilirubin 0.6, Total Protein 6.9, Albumin 3.7, Albumin/Globulin Ratio 1.16, Anion Gap 10, White Blood Count 10.9H, Red Blood Count 4.15L, Hemoglobin 13.0L, Hematocrit 39.1L, Mean Corpuscular Volume 94.2, Mean Corpuscular Hemoglobin 31.2, Mean Corpuscular Hemoglobin Concent 33.1, Red Cell Distribution Width 13.2, Platelet Count 192, Neutrophils (%) (Auto) 76.4H, Lymphocytes (%) (Auto) 13.4L, Monocytes (%) (Auto) 5.5H, Eosinophils (%) (Auto) 3.6H, Basophils (%) (Auto) 0.1 , Neutrophils # (Auto) 8.3H, Lymphocytes # (Auto) 1.5, Monocytes # (Auto) 0.6, Eosinophils # (Auto) 0.4, Basophils # (Auto) 0.0, Glomerular Filtration Rate 59.5, Large Unclassified Cells # 0.1, Large Unclassified Cells % 0.8, Magnesium Level 2.0 CBC/BMP Laboratory Tests 09/18/16 16:14 Calcium Level 8.8, Total Creatine Kinase 122, Red Blood Count 4.04 L, Mean Corpuscular Volume 97.1 H, Mean Corpuscular Hemoglobin 31.0, Mean Corpuscular Hemoglobin Concent 31.9 L, Red Cell Distribution Width 13.2, Neutrophils (%) ( Auto) 83.6 H, Lymphocytes (%) (Auto) 12.1 L, Monocytes (%) (Auto) 2.1, Eosinophils (%) (Auto) 1.8, Basophils (%) (Auto) 0.0, Neutrophils # (Auto) 10.2 H, Lymphocytes # (Auto) 1.5, Monocytes # (Auto) 0.3, Eosinophils # (Auto) 0.2, Basophils # (Auto) 0.0 09/19/16 05:56 Calcium Level 8.7 L, Total Creatine Kinase 167, Red Blood Count 4.15 L, Mean Corpuscular Volume 94.2, Mean Corpuscular Hemoglobin 31.2, Mean Corpuscular Hemoglobin Concent 33.1, Red Cell Distribution Width 13.2, Neutrophils (%) (Auto ) 76.4 H, Lymphocytes (%) (Auto) 13.4 L, Monocytes (%) (Auto) 5.5 H, Eosinophils (%) (Auto) 3.6 H, Basophils (%) (Auto) 0.1, Neutrophils # (Auto) 8.3 H, Lymphocytes # (Auto) 1.5, Monocytes # (Auto) 0.6, Eosinophils # (Auto) 0.4, Basophils # (Auto) 0.0, Aspartate Amino Transf (AST/SGOT) 27, Alanine Aminotransferase (ALT/SGPT) 28, Alkaline Phosphatase 87, Total Bilirubin 0.6, Total Protein 6.9, Albumin 3.7 Microbiology Microbiology 09/19/16 MRSA Screen, Received Pending Medications Scheduled (Aspirin) 81 Mg Chw 81 MG PO DAILY Amlodipine Besylate (Amlodipine Besylate) 5 Mg Tab 5 MG PO DAILY Atorvastatin Calcium (Atorvastatin Calcium) 40 Mg Tab 40 MG PO DAILY Cholecalciferol (Vitamin D3) 1,000 Unit Tab 1,000 UNIT PO DAILY Ramipril (Ramipril) 5 Mg Cap 5 MG PO DAILY Allergies Coded Allergies: No Known Allergies (Unverified , 09/18/16) ALEXANDRE AMES Sep 19, 2016 08:11
[2016-09-19] MEDS ORDERED: amLODIPine 5 MG TAB PO SCH (09:00)
[2016-09-19] MEDS ORDERED: ASPIRIN 81 MG CHEW TABLET PO SCH (09:00)
[2016-09-19] MEDS ORDERED: VITAMIN D 1,000 INTERNATIONAL UNITS TABLET PO SCH (09:00)
[2016-09-19] MEDS ORDERED: PANTOPRAZOLE 40MG TAB (PROTONIX) PO SCH (09:00)
[2016-09-19] MEDS ORDERED: ATORVASTATIN 20 MG TAB PO SCH (09:00)
--- NOTE | 2016-09-19 13:31 | ECGEPIP ---
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
--- NOTE | 2016-09-21 05:31 | EDDOCDS ---
Physician Documentation [facility] Name: Tushar Quiros Age: 76 yrs Sex: Male : 1940 Arrival Date: 09/18/2016 Time: 15:40 Bed Admit Hold Private MD: Disposition: 09/18 17:22 Critical Care:. osmar Disposition: 09/18/16 17:22 Hospitalization ordered by Nagi Clark for Inpatient Admission. Preliminary diagnosis are Cardiac arrhythmia, unspecified - v tach, Atrial fibrillation and flutter. - Bed requested for M ICU. - Status is Inpatient Admission. af2 - Condition is Stable. - Problem is new. - Symptoms are unchanged. Historical: - Allergies: no known allergies; - Home Meds: 1. Coumadin Oral Unknown 2. amlodipine 5 mg Oral tab 1 tab once daily 3. atorvastatin 40 mg oral tab 1 tab once daily 4. Vitamin D2 50,000 unit oral cap 5. ramipril 5 mg oral cap once daily 6. prednisone 20 mg Oral tab once daily 7. aspirin 81 mg Oral chew 1 tab once daily - PMHx: Atrial Fib; - PSHx: Heart Surgery; - Social history: Smoking status: Patient uses tobacco products, light tobacco smoker. No barriers to communication noted. - Family history: Not pertinent. - : The pt / caregiver states he / she is not on anticoagulants. Home medication list is obtained from the patient. - Exposure Risk Screening:: None identified. Vital Signs: 15:26 Pulse 72 MON; Pulse Ox 99% ; cjh 15:26 BP 101 / 54 (auto/); cjh 15:48 Pulse 89; Resp 20; Temp 95.9(TE); Pulse Ox 93% on 4 lpm NC; Weight 62.14 kg / 137 lbs rs6 (R); Height 5 ft. 5 in. (165.10 cm) (R); Pain 4/10; 15:49 Pulse 104 MON; Pulse Ox 95% ; cjh 15:50 BP 176 / 117 (auto/); cjh 16:31 BP 102 / 59 (auto/); cjh 16:32 Pulse 92 MON; Pulse Ox 98% ; cjh 16:44 BP 100 / 55 (auto/); cjh 16:44 Pulse 94 MON; Pulse Ox 99% ; cjh 17:14 BP 77 / 53 (auto/); cjh 17:14 Pulse 92 MON; Pulse Ox 98% ; cjh 17:27 Pulse 94 MON; Pulse Ox 98% ; cjh 17:28 BP 97 / 61 (auto/); cjh 17:44 BP 106 / 63 (auto/); cjh 17:44 Pulse 100 MON; Pulse Ox 99% ; cjh 17:48 Pulse 102 MON; Pulse Ox 98% ; cjh 17:49 BP 107 / 61 (auto/); cjh 17:56 Temp 96.2(O); lr2 18:14 BP 119 / 76 (auto/); cjh 18:14 Pulse 100 MON; Pulse Ox 99% ; cjh 18:44 BP 116 / 58 (auto/); cjh 18:44 Pulse 96 MON; Pulse Ox 97% ; cjh 19:14 BP 119 / 80 (auto/); cjh 19:14 Pulse 100 MON; Pulse Ox 98% ; cjh 19:44 BP 134 / 91 (auto/); cjh 19:44 Pulse 96 MON; Pulse Ox 99% ; cjh 20:14 BP 146 / 72 (auto/); cjh 20:14 Pulse 100 MON; Pulse Ox 100% ; cjh 20:43 Temp 97.8(O); sep 02:43 Pulse 96 MON; Pulse Ox 99% ; cjh 20:44 BP 136 / 66 (auto/); cjh 21:14 BP 127 / 84 (auto/); cjh 21:14 Pulse 96 MON; Pulse Ox 99% ; cjh 21:43 Pulse 96 MON; Pulse Ox 99% ; cjh 21:44 BP 135 / 65 (auto/); cjh 22:14 BP 141 / 75 (auto/); cjh 22:15 Pulse 102 MON; Temp 98.5(O); Pulse Ox 98% ; cjh 23:14 BP 131 / 74 (auto/); af2 23:15 Pulse 92 MON; Resp 18 S; Pulse Ox 96% on R/A; af2 23:44 BP 132 / 81 (auto/); af2 23:44 Pulse 90 MON; Resp 18 S; Pulse Ox 97% on R/A; af2 0206 00:14 BP 131 / 73 (auto/); af2 00:15 Pulse 78 MON; Resp 20 S; Pulse Ox 97% on R/A; af2 00:44 BP 135 / 88 (auto/); af2 00:45 Pulse 82 MON; Resp 18 S; Pulse Ox 98% on R/A; af2 01:14 BP 125 / 86 (auto/); af2 01:15 Pulse 78 MON; Resp 18 S; Pulse Ox 98% on R/A; af2 01:44 BP 138 / 95 (auto/); af2 01:45 Pulse 78 MON; Resp 18 S; Pulse Ox 96% on R/A; af2 02:14 BP 120 / 80 (auto/); af2 02:15 Pulse 74 MON; Resp 18 S; Pulse Ox 97% on R/A; af2 02:44 BP 131 / 79 (auto/); af2 02:44 Pulse 82 MON; Resp 18 S; af2 03:14 BP 131 / 84 (auto/); Resp 18 S; af2 03:15 Pulse 78 MON; af2 03:44 BP 139 / 74 (auto/); Pulse Ox 97% on R/A; af2 03:45 Pulse 78 MON; Resp 18 S; af2 04:29 Temp 97.9(TE); af2 09/18 15:48 Body Mass Index 22.80 (62.14 kg, 165.10 cm) rs6 MDM: 09/18 15:44 ECG WITH READING ER PHYS+CARDIAG ordered. EDMS 15:48 NS 0.9% 1000 ml IV at 100 mL/hr continuous ordered. ke 15:48 Ondansetron 4 mg IVP once ordered. ke 15:48 Fiberglass Pipe Covering Supervisor/Pulse Ox/q 30 min VS ordered. ke 15:48 IV Saline Lock ordered. ke 15:48 Oxygen at 4L/Min NC or Home dosage ordered. ke 15:48 Rhythm Strip to chart ordered. ke 15:48 Undress patient appropriately for examination ordered. ke 15:50 B-Type Natiuretic Peptide Ordered. EDMS 15:50 Basic Metabolic Profile Ordered. EDMS 15:50 CBC with Diff Ordered. EDMS 15:50 Cardiac Injury Profile Ordered. EDMS 15:50 Prothrombin Time Profile\E\INR Ordered. EDMS 15:50 Troponin Ordered. EDMS 15:50 Magnesium Level Ordered. EDMS 15:51 portable chest Ordered. EDMS 15:59 PT/INR Ordered. EDMS 16:34 ETOH Ordered. EDMS 16:37 BED REQUEST+ADM ordered. EDMS 16:44 Financial registration complete. [id number] 16:49 [facility] Payment Agreement was scanned into [employer] and attached to record. [email or web address] 16:59 B-Type Natiuretic Peptide Reviewed. ke 16:59 Basic Metabolic Profile Reviewed. ke 16:59 CBC with Diff Reviewed. ke 16:59 Cardiac Injury Profile Reviewed. ke 16:59 Prothrombin Time Profile\E\INR Reviewed. ke 16:59 Troponin Reviewed. ke 16:59 Magnesium Level Reviewed. ke 16:59 PT/INR Reviewed. ke 16:59 ETOH Reviewed. ke 18:08 Admission / Observation Status ordered. EDMS 18:08 ECHOCARD,DOPPLER/COLOR FLOW ordered. EDMS 18:08 ELECTROCARDIOGRAM ADULT ordered. EDMS 18:08 NPO DIET ordered. EDMS 18:09 CARDIAC INJURY PROFILE Ordered. EDMS 18:09 TROPONIN Ordered. EDMS 18:09 PROTHROMBIN TIME PROFILE\E\INR Ordered. EDMS 18:09 CREATININE,RANDOM URINE Ordered. EDMS 18:09 SODIUM,RANDOM URINE Ordered. EDMS 18:09 OSMOLALITY,URINE Ordered. EDMS 18:40 ARTERIAL BLOOD GAS Ordered. EDMS 19:31 CARDIAC INJURY PROFILE Ordered. EDMS 19:31 CARDIAC INJURY PROFILE Ordered. EDMS 19:31 TROPONIN Ordered. EDMS 19:32 TROPONIN Ordered. EDMS 19:32 PROTHROMBIN TIME PROFILE\E\INR Ordered. EDMS 19:32 CBC WITH DIFFERENTIAL Ordered. EDMS 19:32 COMPLETE COMPHRENSIVE METABOLI Ordered. EDMS 19:32 MAGNESIUM LEVEL Ordered. EDMS 20:37 CARDIAC MARKER PANEL Ordered. EDMS 22:59 Enoxaparin 60 mg Sub-Q once; Ensure no Heparin in past 6hrs. Ensure any baseline labs [facility] are drawn. ordered. 22:59 Metoprolol (Tartrate) 25 mg PO once ordered. [facility] 23:26 amiodarone 400 mg PO once ordered. af2 09/19 04:14 MRSA SCREEN Ordered. EDMS 11:40 T-Sheet-- Draft Copy was scanned into [employer] and attached to record. gb 11:40 ECG/EKG was scanned into [employer] and attached to record. gb 11:41 Trend VS was scanned into [employer] and attached to record. gb 11:41 Rhythm Strip was scanned into [employer] and attached to record. gb 11:41 PCR was scanned into [employer] and attached to record. gb Administered Medications: 09/18 16:01 Drug: NS 0.9% 1000 ml Route: IV; Rate: 100 mL/hr; Site: right forearm; [facility] 16:09 Drug: Ondansetron 4 mg [ondansetron HCl 2 mg/mL intravenous solution (2 mL)] Route: lf1 IVP; Site: right antecubital; 23:00 Drug: Enoxaparin 60 mg {Co-Signature: af2 (Madison Carter RN).} Route: Sub-Q; Site: left [facility] upper abdomen; 23:00 Drug: Metoprolol (Tartrate) 25 mg Route: PO; [facility] 23:58 Drug: amiodarone 400 mg [amiodarone 200 mg tablet (2 tabs)] Route: PO; af2 Critical Care Time: 17:22 Critical care time: Bedside Care: 10 minutes, Consultation: 20 minutes. Total time: 30 ke minutes Signatures: Dispatcher [employer] EDJuana Tan, Reg Reg gb Dm Galarza, TANK PROCESSOR TANK PROCESSOR Jayant Copeland, Director Of Strategic Communications Unit ml3 Eileen Hyde,RN RN [facility] Madison Carter,RN RN af2 Estefanía Adame, Reg Reg [id number] Barbara Pruett RN lf1 Madison Carter RN af2 The chart was reviewed and I authenticate all verbal orders and agree with the evaluation and treatment provided.Attachments: 16:49 [facility] Payment Agreement [email or web address] 09/19 11:40 T-Sheet-- Draft Copy gb 11:40 ECG/EKG gb Chart Complete MTDD
--- NOTE | 2016-09-21 05:31 | EDDOCDS ---
Nurse's Notes [facility] Name: Tushar Quiros Age: 76 yrs Sex: Male : 1940 Arrival Date: 09/18/2016 Time: 15:40 Bed Admit Hold Private MD: Diagnosis: Cardiac arrhythmia, unspecified-v tach;Atrial fibrillation and flutter Presentation: 09/18 15:52 Presenting complaint: EMS states: called on scene by roommate who states patient [facility] returned from riding bike to [employer] and looks sick, patient reports SOB and abdominal pain. placed on monitor shows VTach, amiodarone and Zofran given in rig. Unable to determine if aspirin was taken prior to arrival. Adult Sepsis Screening: The patient does not have new or worsening altered mentation. Patient's respiratory rate is less than 22. Systolic blood pressure is greater than 100. Patient has a qSOFA score of 0- Negative Sepsis Screen. Suicide/Homicide risk assessment- Unable to assess, the patient is critically ill. Status: Patient is not a environmental services assistant or dependent. Transition of care: patient was not received from another setting of care. Care prior to arrival: See EMS report. Medications administered prior to arrival: zofran and amiodarone Saline lock initiated. Oxygen administered by EMS. 15:52 Acuity: RUDDY Level 2 [facility] 15:52 Method Of Arrival: Ambulance [facility] Triage Assessment: 15:57 General: Appears ill, Behavior is cooperative. [facility] 16:02 Pain: Location: abdomen Pain currently is 4 out of 10 on a pain scale. Pain began 4 cjh hours ago. The patient is triaged at the bedside. See Assessment in Nurses Notes section of ED record. Neurological: Level of Consciousness is awake, alert, Oriented to person, place, time. Cardiovascular: Chest pain is denied is described as none. radiates Does not radiate. episodes none began none. Respiratory: Airway is patent Respiratory effort is even, unlabored, Respiratory pattern is regular, symmetrical, Breath sounds with wheezes bilaterally. GI: Abdomen is distended, Bowel sounds Abd is tender to palpation X 4 quads. Firm. Derm: Skin is pale, Skin temperature is cool. Historical: - Allergies: no known allergies; - Home Meds: 1. Coumadin Oral Unknown 2. amlodipine 5 mg Oral tab 1 tab once daily 3. atorvastatin 40 mg oral tab 1 tab once daily 4. Vitamin D2 50,000 unit oral cap 5. ramipril 5 mg oral cap once daily 6. prednisone 20 mg Oral tab once daily 7. aspirin 81 mg Oral chew 1 tab once daily - PMHx: Atrial Fib; - PSHx: Heart Surgery; - Social history: Smoking status: Patient uses tobacco products, light tobacco smoker. No barriers to communication noted. - Family history: Not pertinent. - : The pt / caregiver states he / she is not on anticoagulants. Home medication list is obtained from the patient. - Exposure Risk Screening:: None identified. Screenin:26 Screening information is obtained from the patient. Fall risk: No risks identified. cjh Assistance ADL's: requires no assistance with activities of daily living. Abuse/DV Screen: The patient / caregiver reports he/she is: not in a situation that causes fear, pain or injury. Nutritional screening: No deficits noted. Advance Directives: Currently, there is a health care proxy, Aurelia Andreia, blaise [phone] cell. Advance Directives: There is no active DNR order. There is a living will, but a copy is not available at this time. There is an active Power of Construction Engineer, aurelia escobar. home support is adequate. Assessment: 16:41 General: see bedside triage assessment. Cardiovascular: Rhythm is atrial fibrillation cjh Chest pain is denied. 17:19 General: family at bedside, warm blankets and lights applied, patient appears more cjh comfortable and states feeling less cold. 18:30 General: resting quietly, appears more comfortable, trebling and shaking has cjh diminished, no new problems or complaints, will continue to monitor. 19:50 General: Appears in no apparent distress, comfortable, Behavior is appropriate for age, cjh cooperative, patient states he is feeling much better and is awaiting admission, denies further needs, continues covered in blankets, no visible distress. 20:30 General: patient requesting a meal, discussed NPO status per admission order, patient cjh cooperative and pleasant. 21:30 General: Appears in no apparent distress, comfortable, Behavior is appropriate for age, cjh cooperative, turned, positioned and assisted with comfort on stretcher, urinal provided, patient voided very small amount clear yellow urine, no new problems or complaints voiced. Pain: Denies pain. Neurological: Level of Consciousness is awake, alert, Oriented to person, place, time. Respiratory: Airway is patent Respiratory effort is even, unlabored, Respiratory pattern is regular, symmetrical. Derm: Skin is pink, warm & dry. 23:00 General: Appears in no apparent distress, comfortable, Behavior is appropriate for age, af2 cooperative, Assumed care of pt at this time, pt resting quietly with eyes closed. RR even and unlabored. . Neurological: Level of Consciousness is awake, alert, Oriented to person, place, time. Cardiovascular: Rhythm is atrial fibrillation. Respiratory: Airway is patent Respiratory effort is even, unlabored. Derm: Skin is pink, warm & dry. 09/19 00:00 General: Appears in no apparent distress, comfortable, Behavior is appropriate for age, af2 cooperative. Neurological: Level of Consciousness is awake, alert, Oriented to person, place, time. Cardiovascular: Rhythm is atrial fibrillation. Respiratory: Airway is patent Respiratory effort is even, unlabored. Derm: Skin is normal. 01:06 General: Appears in no apparent distress, comfortable, Behavior is appropriate for age, af2 cooperative. Neurological: Level of Consciousness is awake, alert, Oriented to person, place, time. Cardiovascular: Rhythm is atrial fibrillation. Respiratory: Airway is patent Respiratory effort is even, unlabored. Derm: Skin is normal. 02:17 General: Appears in no apparent distress, comfortable, Behavior is appropriate for age, af2 cooperative. Neurological: Level of Consciousness is awake, alert. Cardiovascular: Rhythm is atrial fibrillation. Respiratory: Airway is patent Respiratory effort is even, unlabored. Derm: Skin is normal. 03:15 General: Appears in no apparent distress, comfortable, Behavior is appropriate for age, af2 cooperative. Neurological: Level of Consciousness is awake, alert, Oriented to person, place, time. Cardiovascular: Rhythm is atrial fibrillation. Respiratory: Airway is patent Respiratory effort is even, unlabored. Derm: Skin is normal. 04:16 General: Appears in no apparent distress, comfortable, Behavior is appropriate for age, af2 cooperative, pt resting quietly with eyes closed, rr even and unlabored. . Cardiovascular: Rhythm is atrial fibrillation. Respiratory: Airway is patent Respiratory effort is even, unlabored. Derm: Skin is normal. Vital Signs: 09/18 15:26 Pulse 72 MON; Pulse Ox 99% ; cjh 15:26 BP 101 / 54 (auto/); cjh 15:48 Pulse 89; Resp 20; Temp 95.9(TE); Pulse Ox 93% on 4 lpm NC; Weight 62.14 kg (R); Height rs6 5 ft. 5 in. (165.10 cm) (R); Pain 4/10; 15:49 Pulse 104 MON; Pulse Ox 95% ; cjh 15:50 BP 176 / 117 (auto/); cjh 16:31 BP 102 / 59 (auto/); cjh 16:32 Pulse 92 MON; Pulse Ox 98% ; cjh 16:44 BP 100 / 55 (auto/); cjh 16:44 Pulse 94 MON; Pulse Ox 99% ; cjh 17:14 BP 77 / 53 (auto/); cjh 17:14 Pulse 92 MON; Pulse Ox 98% ; cjh 17:27 Pulse 94 MON; Pulse Ox 98% ; cjh 17:28 BP 97 / 61 (auto/); cjh 17:44 BP 106 / 63 (auto/); cjh 17:44 Pulse 100 MON; Pulse Ox 99% ; cjh 17:48 Pulse 102 MON; Pulse Ox 98% ; cjh 17:49 BP 107 / 61 (auto/); cjh 17:56 Temp 96.2(O); lr2 18:14 BP 119 / 76 (auto/); cjh 18:14 Pulse 100 MON; Pulse Ox 99% ; cjh 18:44 BP 116 / 58 (auto/); cjh 18:44 Pulse 96 MON; Pulse Ox 97% ; cjh 19:14 BP 119 / 80 (auto/); cjh 19:14 Pulse 100 MON; Pulse Ox 98% ; cjh 19:44 BP 134 / 91 (auto/); cjh 19:44 Pulse 96 MON; Pulse Ox 99% ; cjh 20:14 BP 146 / 72 (auto/); cjh 20:14 Pulse 100 MON; Pulse Ox 100% ; cjh 20:43 Temp 97.8(O); sep 02:43 Pulse 96 MON; Pulse Ox 99% ; cjh 20:44 BP 136 / 66 (auto/); cjh 21:14 BP 127 / 84 (auto/); cjh 21:14 Pulse 96 MON; Pulse Ox 99% ; cjh 21:43 Pulse 96 MON; Pulse Ox 99% ; cjh 21:44 BP 135 / 65 (auto/); cjh 22:14 BP 141 / 75 (auto/); cjh 22:15 Pulse 102 MON; Temp 98.5(O); Pulse Ox 98% ; cjh 23:14 BP 131 / 74 (auto/); af2 23:15 Pulse 92 MON; Resp 18 S; Pulse Ox 96% on R/A; af2 23:44 BP 132 / 81 (auto/); af2 23:44 Pulse 90 MON; Resp 18 S; Pulse Ox 97% on R/A; af2 09/19 00:14 BP 131 / 73 (auto/); af2 00:15 Pulse 78 MON; Resp 20 S; Pulse Ox 97% on R/A; af2 00:44 BP 135 / 88 (auto/); af2 00:45 Pulse 82 MON; Resp 18 S; Pulse Ox 98% on R/A; af2 01:14 BP 125 / 86 (auto/); af2 01:15 Pulse 78 MON; Resp 18 S; Pulse Ox 98% on R/A; af2 01:44 BP 138 / 95 (auto/); af2 01:45 Pulse 78 MON; Resp 18 S; Pulse Ox 96% on R/A; af2 02:14 BP 120 / 80 (auto/); af2 02:15 Pulse 74 MON; Resp 18 S; Pulse Ox 97% on R/A; af2 02:44 BP 131 / 79 (auto/); af2 02:44 Pulse 82 MON; Resp 18 S; af2 03:14 BP 131 / 84 (auto/); Resp 18 S; af2 03:15 Pulse 78 MON; af2 03:44 BP 139 / 74 (auto/); Pulse Ox 97% on R/A; af2 03:45 Pulse 78 MON; Resp 18 S; af2 04:29 Temp 97.9(TE); af2 09/18 15:48 Body Mass Index 22.80 (62.14 kg, 165.10 cm) rs6 Vitals: 09/18 15:48 Log In Time N/A - ambulance arrival. rs6 ED Course: 15:26 The patient / caregiver is instructed regarding the plan of care and ED course. [facility] 15:26 Maintain field IV. Site clean & dry. Gauge & site: 20 gauge right forearm. [facility] 15:41 Patient visited by Jannet Nelson PCA. ar3 15:41 Patient moved to Waiting ar3 15:42 Patient moved to 4 ar3 15:47 Dm Galarza FNP is [facility]. ke 15:47 Patient visited by Dm Galarza FNP. ke 15:47 Patient visited by Dm Galarza FNP. ke 15:48 Pt greeted and oriented to ED. Patient advised of names of staff involved in care, rs6 location of call [place], wait times and NPO status. Patient has correct armband on for positive identification. Placed in gown. Bed in low position. Call light in reach. Side rails up X 1. quality assurance monitor on. Pulse ox on. NIBP on. 15:49 Patient visited by Gina Gomez PCA. rs6 15:54 Triage Initiated [facility] 15:55 Patient visited by Gina Gomez PCA. rs6 15:55 EKG done. (by ED staff). Reviewed by Dm LEVY. rs6 16:35 Patient visited by Dm Galarza FNP. ke 16:49 REPLACED BY [facility] Payment Agreement was scanned into [employer] and attached to record. ks16 17:01 Patient visited by Dm Galarza FNP. ke 17:07 Verbal reassurance given. Warm blanket given. rs6 17:08 Patient visited by Gina Gomez PCA. rs6 17:19 EKG-ADULT Returned. EDMS 17:21 Nagi Clark MD is Hospitalizing Provider. ke 21:58 Patient moved to Admit Hold ml3 22:15 No procedures done that require assistance. [facility] 02 00:02 Patient visited by Madison Carter RN. af2 01:07 Patient visited by Madison Carter,RN. af2 02:19 Patient visited by Madison Carter,KATE. af2 04:18 Patient visited by Madison Carter,KATE. af2 11:40 T-Sheet-- Draft Copy was scanned into [employer] and attached to record. gb 11:40 ECG/EKG was scanned into [employer] and attached to record. gb 11:41 Trend VS was scanned into [employer] and attached to record. gb 11:41 Rhythm Strip was scanned into [employer] and attached to record. gb 11:41 PCR was scanned into [employer] and attached to record. gb Administered Medications: 09/18 16:01 Drug: NS 0.9% 1000 ml Route: IV; Rate: 100 mL/hr; Site: right forearm; [facility] 16:09 Drug: Ondansetron 4 mg [ondansetron HCl 2 mg/mL intravenous solution (2 mL)] Route: lf1 IVP; Site: right antecubital; 23:00 Drug: Enoxaparin 60 mg {Co-Signature: af2 (Madison Carter RN).} Route: Sub-Q; Site: left [facility] upper abdomen; 23:00 Drug: Metoprolol (Tartrate) 25 mg Route: PO; [facility] 23:58 Drug: amiodarone 400 mg [amiodarone 200 mg tablet (2 tabs)] Route: PO; af2 Attachments: 11:41 Trend VS gb 11:41 Rhythm Strip gb Order Results: Lab Order: B-Type Natiuretic Peptide; SPEC'M 09/18/16 16:14 Test: BRAIN NATRIURETIC PEPTIDE; Value: 381; Range: <100; Abnormal: Above high normal; Units: PG/ML; Status: F Lab Order: Basic Metabolic Profile; SPEC'M 09/18/16 16:14 Test: GLUCOSE, FASTING; Value: 210; Range: 83-110; Abnormal: Above high normal; Units: MG/DL; Status: F Test: BLOOD UREA NITROGEN; Value: 24; Range: 7-18; Abnormal: Above high normal; Units: MG/DL; Status: F Test: CREATININE FOR GFR; Value: 1.80; Range: 0.70-1.30; Abnormal: Above high normal; Units: MG/DL; Status: F Test: GLOMERULAR FILTRATION RATE; Value: 39.0; Range: >42; Abnormal: Below low normal; Status: F Test: SODIUM LEVEL; Value: 146; Range: 136-145; Abnormal: Above high normal; Units: MEQ/L; Status: F Test: POTASSIUM SERUM; Value: 4.6; Range: 3.5-5.1; Units: MEQ/L; Status: F Test: CHLORIDE LEVEL; Value: 110; Range: 98-107; Abnormal: Above high normal; Units: MEQ/L; Status: F Test: CARBON DIOXIDE LEVEL; Value: 20; Range: 21-32; Abnormal: Below low normal; Units: MEQ/L; Status: F Test: ANION GAP; Value: 16; Range: 8-16; Units: MEQ/L; Status: F Test: CALCIUM LEVEL; Value: 8.8; Range: 8.8-10.2; Units: MG/DL; Status: F Test Note: ; Units are mL/min/1.73 m2 Chronic Kidney Disease Staging per NKF: Stage I & II GFR >=60 Normal to Mildly Decreased Stage III GFR 30-59 Moderately Decreased Stage IV GFR 15-29 Severely Decreased Stage V GFR <15 Very Little GFR Left ESRD GFR <15 on ACQUISITIONS LOGISTICS ANALYST Lab Order: CBC with Diff; SPEC'M 09/18/16 16:14 Test: WHITE BLOOD COUNT; Value: 12.2; Range: 4.0-10.0; Abnormal: Above high normal; Units: K/mm3; Status: F Test: RED BLOOD COUNT; Value: 4.04; Range: 4.30-6.10; Abnormal: Below low normal; Units: M/mm3; Status: F Test: HEMOGLOBIN; Value: 12.5; Range: 14.0-18.0; Abnormal: Below low normal; Units: g/dl; Status: F Test: HEMATOCRIT; Value: 39.2; Range: 42.0-52.0; Abnormal: Below low normal; Units: %; Status: F Test: MEAN CORPUSCULAR VOLUME; Value: 97.1; Range: 80.0-96.0; Abnormal: Above high normal; Units: fl; Status: F Test: MEAN CORPUSCULAR HEMOGLOBIN; Value: 31.0; Range: 27.0-33.0; Units: pg; Status: F Test: MEAN CORPUSCULAR HGB CONC; Value: 31.9; Range: 32.0-36.5; Abnormal: Below low normal; Units: g/dl; Status: F Test: RED CELL DISTRIBUTION WIDTH; Value: 13.2; Range: 11.5-14.5; Units: %; Status: F Test: PLATELET COUNT, AUTOMATED; Value: 201; Range: 150-450; Units: k/mm3; Status: F Test: NEUTROPHILS %; Value: 83.6; Range: 36.0-66.0; Abnormal: Above high normal; Units: %; Status: F Test: LYMPH %; Value: 12.1; Range: 24.0-44.0; Abnormal: Below low normal; Units: %; Status: F Test: MONO %; Value: 2.1; Range: 0.0-5.0; Units: %; Status: F Test: EOS %; Value: 1.8; Range: 0.0-3.0; Units: %; Status: F Test: BASO %; Value: 0.0; Range: 0.0-1.0; Units: %; Status: F Test: LARGE UNSTAINED CELL %; Value: 0.3; Range: 0.0-4.0; Units: %; Status: F Test: NEUTROPHILS #; Value: 10.2; Range: 1.8-7.7; Abnormal: Above high normal; Units: K/mm3; Status: F Test: LYMPH #; Value: 1.5; Range: 1.5-4.5; Units: K/mm3; Status: F Test: MONO #; Value: 0.3; Range: 0.0-0.8; Units: K/mm3; Status: F Test: EOS #; Value: 0.2; Range: 0.0-0.50; Units: K/mm3; Status: F Test: BASO #; Value: 0.0; Range: 0.0-0.2; Units: K/mm3; Status: F Test: LARGE UNSTAINED CELL #; Value: 0.0; Range: 0.0-0.4; Units: K/mm3; Status: F Lab Order: Cardiac Injury Profile; [facility]' 09/18/16 16:14 Test: CPK CREATINE PHOSPHOKINASE; Value: 122; Range: 39-308; Units: U/L; Status: F Test: CK-MB VALUE MASS; Value: 3.2; Range: 0.0-3.6; Units: NG/ML; Status: F Test: MB/CK RELATIVE INDEX; Value: 2.62; Range: < OR =4; Status: F Test Note: ; DIAGNOSIS CRITERIA MMB ng/ml Relative Index (RI) NON-AMI < or = 5 N/A [place] > 5 < or = 4 AMI > 5 > 4 Lab Order: Prothrombin Time Profile\E\INR; [facility] 09/18/16 16:13 Test: PROTHROMBIN TIME; Value: 14.1; Range: 12.3-14.5; Units: SECONDS; Status: F Test: INR; Value: 1.08; Status: F Test Note: ; THERAPUTIC HUMAN INR VALUES INDICATIONS NORMAL RANGES PROPHYLAXIS/TREATMENT OF: VENOUS THROMBOSIS 2.0-3.0 PULMONARY EMBOLISM 2.0-3.0 PREVENTION OF SYSTEMIC EMBOLISM FROM: TISSUE HEART VALVES 2.0-3.0 ACUTE MYOCARDIAL INFARCTION 2.0-3.0 VALVULAR HEART DISEASE 2.0-3.0 ATRIAL FIBRILLATION 2.0-3.0 MECHANICAL VALVES(HIGH RISK) 2.5-3.5 RECURRENT MYOCARDIAL INFARCTION 2.5-3.5 Lab Order: Troponin; [facility] 09/18/16 16:14 Test: TROPONIN I; Value: < 0.02; Range: < 0.10; Units: NG/ML; Status: F Test Note: ; Troponin I Reference Interval for [employer] LOCI: 99th Percentile= 0.00-0.045 ng/ml Risk Stratification: <= 0.10 ng/ml Decreased Risk for Adverse Clinical Events. 0.10-1.50 ng/ml Increased Risk for Adverse Clinical Events. Evaluation of additional criterion and/or repeat testing in 2-6 hours is suggested to rule out myocardial damage. >= 1.50 ng/ml Indicative of Myocardial Injury. Lab Order: Magnesium Level; [facility] 09/18/16 16:14 Test: MAGNESIUM LEVEL; Value: 2.0; Range: 1.8-2.4; Units: MG/DL; Status: F Lab Order: PT/INR; [facility] 09/18/16 16:13 Test: PROTHROMBIN TIME; Value: 14.3; Range: 12.3-14.5; Units: SECONDS; Status: F Test: INR; Value: 1.10; Status: F Test Note: ; THERAPUTIC HUMAN INR VALUES INDICATIONS NORMAL RANGES PROPHYLAXIS/TREATMENT OF: VENOUS THROMBOSIS 2.0-3.0 PULMONARY EMBOLISM 2.0-3.0 PREVENTION OF SYSTEMIC EMBOLISM FROM: TISSUE HEART VALVES 2.0-3.0 ACUTE MYOCARDIAL INFARCTION 2.0-3.0 VALVULAR HEART DISEASE 2.0-3.0 ATRIAL FIBRILLATION 2.0-3.0 MECHANICAL VALVES(HIGH RISK) 2.5-3.5 RECURRENT MYOCARDIAL INFARCTION 2.5-3.5 Lab Order: ETOH; [facility] 09/18/16 16:11 Test: ETHYL ALCOHOL (ETHANOL); Value: < 0.003; Range: 0.000-0.010; Units: %; Status: F Lab Order: CARDIAC INJURY PROFILE; [facility] 09/18/16 21:56 Test: CPK CREATINE PHOSPHOKINASE; Value: 119; Range: 39-308; Units: U/L; Status: F Test: CK-MB VALUE MASS; Value: 5.3; Range: 0.0-3.6; Abnormal: Above high normal; Units: NG/ML; Status: F Test: MB/CK RELATIVE INDEX; Value: 4.45; Range: < OR =4; Abnormal: Above high normal; Status: F Test Note: ; DIAGNOSIS CRITERIA MMB ng/ml Relative Index (RI) NON-AMI < or = 5 N/A [place] > 5 < or = 4 AMI > 5 > 4 Lab Order: TROPONIN; 09/18/16 21:56 Test: TROPONIN I; Value: 0.50; Range: < 0.10; Abnormal: High; Units: NG/ML; Status: F Test Note: ; Troponin I Reference Interval for [facility] LOCI: 99th Percentile= 0.00-0.045 ng/ml Risk Stratification: <= 0.10 ng/ml Decreased Risk for Adverse Clinical Events. 0.10-1.50 ng/ml Increased Risk for Adverse Clinical Events. Evaluation of additional criterion and/or repeat testing in 2-6 hours is suggested to rule out myocardial damage. >= 1.50 ng/ml Indicative of Myocardial Injury. Lab Order: PROTHROMBIN TIME PROFILE\E\INR; [facility] 09/18/16 19:02 Test: PROTHROMBIN TIME; Value: 13.6; Range: 12.3-14.5; Units: SECONDS; Status: F Test: INR; Value: 1.03; Status: F Test Note: ; THERAPUTIC HUMAN INR VALUES INDICATIONS NORMAL RANGES PROPHYLAXIS/TREATMENT OF: VENOUS THROMBOSIS 2.0-3.0 PULMONARY EMBOLISM 2.0-3.0 PREVENTION OF SYSTEMIC EMBOLISM FROM: TISSUE HEART VALVES 2.0-3.0 ACUTE MYOCARDIAL INFARCTION 2.0-3.0 VALVULAR HEART DISEASE 2.0-3.0 ATRIAL FIBRILLATION 2.0-3.0 MECHANICAL VALVES(HIGH RISK) 2.5-3.5 RECURRENT MYOCARDIAL INFARCTION 2.5-3.5 Lab Order: CARDIAC MARKER PANEL; SPEC'M 09/18/16 20:41 Test: CPK CREATINE PHOSPHOKINASE; Value: 109; Range: 39-308; Units: U/L; Status: F Test: CK-MB VALUE MASS; Value: 4.3; Range: 0.0-3.6; Abnormal: Above high normal; Units: NG/ML; Status: F Test: MB/CK RELATIVE INDEX; Value: 3.94; Range: < OR =4; Status: F Test: TROPONIN I; Value: 0.31; Range: < 0.10; Abnormal: High; Units: NG/ML; Status: F Test Note: ; DIAGNOSIS CRITERIA MMB ng/ml Relative Index (RI) NON-AMI < or = 5 N/A [place] > 5 < or = 4 AMI > 5 > 4 Radiology Order: EKG-ADULT Test: EKG-ADULT REASON FOR EXAMINATION: irregular heart rate; Stationary ECG Study; [facility] - ED; ; Test Date: 2016-09-18; Pat Name: TUSHAR ALEXANDRA Department:; Room: -; Gender: M [employer]hery Boss: juan carlos; : 1940 Requested By: DM LEVY; Order Number: [id number] Reading MD: Wilbert Walsh; Measurements; Intervals [place]; Rate: 100 P:; TX: 0 QRS: 58; QRSD: 106 T: 157; QT: 374; QTc: 483; Interpretive Statements; ATRIAL FIBRILLATION WITH RAPID VENTRICULAR RESPONSE; NONSPECIFIC ST T-WAVE ABNORMALITY; PRIOR INFERIOR INFARCT; SIMILAR TO 07/29/16; Electronically Signed On 09-18-2016 17:03:38 EST by Wilbert Walsh; Outcome: 09/18 17:22 Decision to Hospitalize by Provider. 09/19 04:27 Discharge Assessment: Patient awake, alert and oriented x 3. No cognitive and/or af2 functional deficits noted. Patient verbalized understanding of disposition instructions. patient administered narcotics - no. The following High Risk Discharge criteria are identified: None. Admitted to ICU accompanied by nurse, accompanied by tech, via stretcher, on monitor, with chart. Condition: stable. No special radiology studies were completed. Property :Personal belongings accompany Pt. 04:29 Patient left the ED. af2 Signatures: Dispatcher [employer] EDMS Taylor Mendoza, RN RN Juana Porter, Reg Reg gb Dm Galarza, ESTIMATOR PRINTING PLATE MAKING ESTIMATOR PRINTING PLATE MAKING Jayant Copeland, Clerical Coordinator Unit ml3 Barbara Pruett,RN RN lf1 Jannet Nelson, CONDUIT INSTALLER CONDUIT INSTALLER ar3 Eileen Hyde,RN RN [facility] Patricia, Gina, CONDUIT INSTALLER CONDUIT INSTALLER rs6 Madison Carter,RN RN af2 Estefanía Adame, Reg Reg ks16 Safia Vega lr2 Madison Carter RN af2 Chart Complete MTDD
--- NOTE | 2016-09-21 05:31 | EDDOCDS ---
Physician Documentation [facility] Name: Tushar Quiros Age: 76 yrs Sex: Male : 1940 Arrival Date: 09/18/2016 Time: 15:40 Bed Admit Hold Private MD: Disposition: 09/18 17:22 Critical Care:. osmar Disposition: 09/18/16 17:22 Hospitalization ordered by Nagi Clark for Inpatient Admission. Preliminary diagnosis are Cardiac arrhythmia, unspecified - v tach, Atrial fibrillation and flutter. - Bed requested for M ICU. - Status is Inpatient Admission. af2 - Condition is Stable. - Problem is new. - Symptoms are unchanged. Historical: - Allergies: no known allergies; - Home Meds: 1. Coumadin Oral Unknown 2. amlodipine 5 mg Oral tab 1 tab once daily 3. atorvastatin 40 mg oral tab 1 tab once daily 4. Vitamin D2 50,000 unit oral cap 5. ramipril 5 mg oral cap once daily 6. prednisone 20 mg Oral tab once daily 7. aspirin 81 mg Oral chew 1 tab once daily - PMHx: Atrial Fib; - PSHx: Heart Surgery; - Social history: Smoking status: Patient uses tobacco products, light tobacco smoker. No barriers to communication noted. - Family history: Not pertinent. - : The pt / caregiver states he / she is not on anticoagulants. Home medication list is obtained from the patient. - Exposure Risk Screening:: None identified. Vital Signs: 15:26 Pulse 72 MON; Pulse Ox 99% ; cjh 15:26 BP 101 / 54 (auto/); cjh 15:48 Pulse 89; Resp 20; Temp 95.9(TE); Pulse Ox 93% on 4 lpm NC; Weight 62.14 kg / 137 lbs rs6 (R); Height 5 ft. 5 in. (165.10 cm) (R); Pain 4/10; 15:49 Pulse 104 MON; Pulse Ox 95% ; cjh 15:50 BP 176 / 117 (auto/); cjh 16:31 BP 102 / 59 (auto/); cjh 16:32 Pulse 92 MON; Pulse Ox 98% ; cjh 16:44 BP 100 / 55 (auto/); cjh 16:44 Pulse 94 MON; Pulse Ox 99% ; cjh 17:14 BP 77 / 53 (auto/); cjh 17:14 Pulse 92 MON; Pulse Ox 98% ; cjh 17:27 Pulse 94 MON; Pulse Ox 98% ; cjh 17:28 BP 97 / 61 (auto/); cjh 17:44 BP 106 / 63 (auto/); cjh 17:44 Pulse 100 MON; Pulse Ox 99% ; cjh 17:48 Pulse 102 MON; Pulse Ox 98% ; cjh 17:49 BP 107 / 61 (auto/); cjh 17:56 Temp 96.2(O); lr2 18:14 BP 119 / 76 (auto/); cjh 18:14 Pulse 100 MON; Pulse Ox 99% ; cjh 18:44 BP 116 / 58 (auto/); cjh 18:44 Pulse 96 MON; Pulse Ox 97% ; cjh 19:14 BP 119 / 80 (auto/); cjh 19:14 Pulse 100 MON; Pulse Ox 98% ; cjh 19:44 BP 134 / 91 (auto/); cjh 19:44 Pulse 96 MON; Pulse Ox 99% ; cjh 20:14 BP 146 / 72 (auto/); cjh 20:14 Pulse 100 MON; Pulse Ox 100% ; cjh 20:43 Temp 97.8(O); sep 02:43 Pulse 96 MON; Pulse Ox 99% ; cjh 20:44 BP 136 / 66 (auto/); cjh 21:14 BP 127 / 84 (auto/); cjh 21:14 Pulse 96 MON; Pulse Ox 99% ; cjh 21:43 Pulse 96 MON; Pulse Ox 99% ; cjh 21:44 BP 135 / 65 (auto/); cjh 22:14 BP 141 / 75 (auto/); cjh 22:15 Pulse 102 MON; Temp 98.5(O); Pulse Ox 98% ; cjh 23:14 BP 131 / 74 (auto/); af2 23:15 Pulse 92 MON; Resp 18 S; Pulse Ox 96% on R/A; af2 23:44 BP 132 / 81 (auto/); af2 23:44 Pulse 90 MON; Resp 18 S; Pulse Ox 97% on R/A; af2 0206 00:14 BP 131 / 73 (auto/); af2 00:15 Pulse 78 MON; Resp 20 S; Pulse Ox 97% on R/A; af2 00:44 BP 135 / 88 (auto/); af2 00:45 Pulse 82 MON; Resp 18 S; Pulse Ox 98% on R/A; af2 01:14 BP 125 / 86 (auto/); af2 01:15 Pulse 78 MON; Resp 18 S; Pulse Ox 98% on R/A; af2 01:44 BP 138 / 95 (auto/); af2 01:45 Pulse 78 MON; Resp 18 S; Pulse Ox 96% on R/A; af2 02:14 BP 120 / 80 (auto/); af2 02:15 Pulse 74 MON; Resp 18 S; Pulse Ox 97% on R/A; af2 02:44 BP 131 / 79 (auto/); af2 02:44 Pulse 82 MON; Resp 18 S; af2 03:14 BP 131 / 84 (auto/); Resp 18 S; af2 03:15 Pulse 78 MON; af2 03:44 BP 139 / 74 (auto/); Pulse Ox 97% on R/A; af2 03:45 Pulse 78 MON; Resp 18 S; af2 04:29 Temp 97.9(TE); af2 09/18 15:48 Body Mass Index 22.80 (62.14 kg, 165.10 cm) rs6 MDM: 09/18 15:44 ECG WITH READING ER PHYS+CARDIAG ordered. EDMS 15:48 NS 0.9% 1000 ml IV at 100 mL/hr continuous ordered. ke 15:48 Ondansetron 4 mg IVP once ordered. ke 15:48 Component Assembler Supervisor/Pulse Ox/q 30 min VS ordered. ke 15:48 IV Saline Lock ordered. ke 15:48 Oxygen at 4L/Min NC or Home dosage ordered. ke 15:48 Rhythm Strip to chart ordered. ke 15:48 Undress patient appropriately for examination ordered. ke 15:50 B-Type Natiuretic Peptide Ordered. EDMS 15:50 Basic Metabolic Profile Ordered. EDMS 15:50 CBC with Diff Ordered. EDMS 15:50 Cardiac Injury Profile Ordered. EDMS 15:50 Prothrombin Time Profile\E\INR Ordered. EDMS 15:50 Troponin Ordered. EDMS 15:50 Magnesium Level Ordered. EDMS 15:51 portable chest Ordered. EDMS 15:59 PT/INR Ordered. EDMS 16:34 ETOH Ordered. EDMS 16:37 BED REQUEST+ADM ordered. EDMS 16:44 Financial registration complete. [email or web address] 16:49 [facility] Payment Agreement was scanned into [employer] and attached to record. [email or web address] 16:59 B-Type Natiuretic Peptide Reviewed. ke 16:59 Basic Metabolic Profile Reviewed. ke 16:59 CBC with Diff Reviewed. ke 16:59 Cardiac Injury Profile Reviewed. ke 16:59 Prothrombin Time Profile\E\INR Reviewed. ke 16:59 Troponin Reviewed. ke 16:59 Magnesium Level Reviewed. ke 16:59 PT/INR Reviewed. ke 16:59 ETOH Reviewed. ke 18:08 Admission / Observation Status ordered. EDMS 18:08 ECHOCARD,DOPPLER/COLOR FLOW ordered. EDMS 18:08 ELECTROCARDIOGRAM ADULT ordered. EDMS 18:08 NPO DIET ordered. EDMS 18:09 CARDIAC INJURY PROFILE Ordered. EDMS 18:09 TROPONIN Ordered. EDMS 18:09 PROTHROMBIN TIME PROFILE\E\INR Ordered. EDMS 18:09 CREATININE,RANDOM URINE Ordered. EDMS 18:09 SODIUM,RANDOM URINE Ordered. EDMS 18:09 OSMOLALITY,URINE Ordered. EDMS 18:40 ARTERIAL BLOOD GAS Ordered. EDMS 19:31 CARDIAC INJURY PROFILE Ordered. EDMS 19:31 CARDIAC INJURY PROFILE Ordered. EDMS 19:31 TROPONIN Ordered. EDMS 19:32 TROPONIN Ordered. EDMS 19:32 PROTHROMBIN TIME PROFILE\E\INR Ordered. EDMS 19:32 CBC WITH DIFFERENTIAL Ordered. EDMS 19:32 COMPLETE COMPHRENSIVE METABOLI Ordered. EDMS 19:32 MAGNESIUM LEVEL Ordered. EDMS 20:37 CARDIAC MARKER PANEL Ordered. EDMS 22:59 Enoxaparin 60 mg Sub-Q once; Ensure no Heparin in past 6hrs. Ensure any baseline labs [facility] are drawn. ordered. 22:59 Metoprolol (Tartrate) 25 mg PO once ordered. [facility] 23:26 amiodarone 400 mg PO once ordered. af2 09/19 04:14 MRSA SCREEN Ordered. EDMS 11:40 T-Sheet-- Draft Copy was scanned into [employer] and attached to record. gb 11:40 ECG/EKG was scanned into [employer] and attached to record. gb 11:41 Trend VS was scanned into [employer] and attached to record. gb 11:41 Rhythm Strip was scanned into [employer] and attached to record. gb 11:41 PCR was scanned into [employer] and attached to record. gb Administered Medications: 09/18 16:01 Drug: NS 0.9% 1000 ml Route: IV; Rate: 100 mL/hr; Site: right forearm; [facility] 16:09 Drug: Ondansetron 4 mg [ondansetron HCl 2 mg/mL intravenous solution (2 mL)] Route: lf1 IVP; Site: right antecubital; 23:00 Drug: Enoxaparin 60 mg {Co-Signature: af2 (Madison Carter RN).} Route: Sub-Q; Site: left [facility] upper abdomen; 23:00 Drug: Metoprolol (Tartrate) 25 mg Route: PO; [facility] 23:58 Drug: amiodarone 400 mg [amiodarone 200 mg tablet (2 tabs)] Route: PO; af2 Critical Care Time: 17:22 Critical care time: Bedside Care: 10 minutes, Consultation: 20 minutes. Total time: 30 ke minutes Signatures: Dispatcher [employer] EDJuana Tan, Reg Reg gb Dm Galarza, BLANKBOOK FORWARDER BLANKBOOK FORWARDER Jayant Copeland, Chemistry Research Assistant Unit ml3 Eileen Hyde,RN RN [facility] Madison Carter,RN RN af2 Estefanía Adame, Reg Reg [email or web address] Barbara Pruett RN lf1 Madison Carter RN af2 The chart was reviewed and I authenticate all verbal orders and agree with the evaluation and treatment provided.Attachments: 16:49 [facility] Payment Agreement [email or web address] 09/19 11:40 T-Sheet-- Draft Copy gb 11:40 ECG/EKG gb Chart Complete MTDD
== END 2016-09-19 09:29 | disposition short-term general hospital (02) | DRG 310 ==
LOC: M ED 15:40 → M ED INP 18:01 → M ICU 09-19 04:35
PROVIDERS: ADMIT Internal Medicine; ATTEND Hospitalist
DX: I47.2 Ventricular tachycardia (principal); R79.89 Other specified abnormal findings of blood chemistry; I48.91 Unspecified atrial fibrillation; I25.10 Atherosclerotic heart disease of native coronary artery without angina pectoris; I25.2 Old myocardial infarction; I12.9 Hypertensive chronic kidney disease with stage 1 through stage 4 chronic kidney disease, or unspecified chronic kidney disease; F17.210 Nicotine dependence, cigarettes, uncomplicated; E78.5 Hyperlipidemia, unspecified; N18.3 Chronic kidney disease, stage 3 (moderate); E55.9 Vitamin D deficiency, unspecified; Z95.9 Presence of cardiac and vascular implant and graft, unspecified; Z79.01 Long term (current) use of anticoagulants; Z79.82 Long term (current) use of aspirin; Z79.899 Other long term (current) drug therapy

== ENCOUNTER 2016-10-09 10:42 | Inpatient (IN) | payer MEDICARE ==
[~2016-10-09] VITALS: Ht 167.6 cm; Wt 59.5 kg
[~2016-10-09 10:42] MED LIST: AMLO5TAB2 PO; ASPI81CH PO; ATOR40TA PO; RAMI5CA PO; VITA-122 PO
--- NOTE | 2016-10-09 11:06 | REP ---
Clinical: Shortness of breath. Comparison: 09/18/2016. Findings: Trace basilar atelectasis cannot be excluded. Mediastinum and cardiac silhouette stable. No effusion. No pneumothorax. Skeletal structures intact. Impression: Trace basilar atelectasis cannot be excluded. Signed by Jalil Paredes MD 10/09/2016 10:57 A
[2016-10-09 11:08] LABS: ABG BASE EXCESS -2.4 (-2.0-2.0); ABG DEVICE NASAL CANN; ABG HCO3 20.1 MEQ/L (22.0-26.0); ABG STANDARD HCO3 22.4 MEQ/L (22.0-26.0); ABG TOTAL CO2 20.9 MEQ/L (23.0-31.0); ABG pH (ARTERIAL) 7.473 UNITS (7.350-7.450)
[2016-10-09 11:13] LABS: BASO % 0.1 % (0.0-1.0); EOS # 0.1 K/mm3 (0.0-0.50); LARGE UNSTAINED CELL # 0.1 K/mm3 (0.0-0.4); LARGE UNSTAINED CELL % 0.8 % (0.0-4.0); LYMPH # 0.9 K/mm3 (1.5-4.5); LYMPH % 6.2 % (24.0-44.0); MEAN CORPUSCULAR HEMOGLOBIN 31.5 pg (27.0-33.0); MEAN CORPUSCULAR HGB CONC 33.5 g/dl (32.0-36.5); MEAN CORPUSCULAR VOLUME 93.9 fl (80.0-96.0); NEUTROPHILS # 10.5 K/mm3 (1.8-7.7); NEUTROPHILS % 84.1 % (36.0-66.0); PLATELET COUNT, AUTOMATED 234 k/mm3 (150-450); RED CELL DISTRIBUTION WIDTH 13.2 % (11.5-14.5); WHITE BLOOD COUNT 12.5 K/mm3 (4.0-10.0)
[2016-10-09 11:23] LABS: INR 1.1
[2016-10-09 11:31] LABS: ALBUMIN 3.6 GM/DL (3.2-5.2); ALBUMIN/GLOBULIN RATIO 0.9 (1.00-1.93); BILIRUBIN,DIRECT 0.2 MG/DL (0.0-0.2); BILIRUBIN,TOTAL 0.8 MG/DL (0.2-1.0); CALCIUM LEVEL 8.5 MG/DL (8.8-10.2); CREATININE FOR GFR 1.56 MG/DL (0.70-1.30); GLOMERULAR FILTRATION RATE 46.1 (>42); MAGNESIUM LEVEL 2.4 MG/DL (1.8-2.4); PHOSPHORUS LEVEL 3.6 MG/DL (2.5-4.9); POTASSIUM SERUM 4.4 MEQ/L (3.5-5.1); TOTAL PROTEIN 7.6 GM/DL (6.4-8.2)
[2016-10-09] MEDS ORDERED: ISOVUE-370 76% 100ML VIAL (Q9967) As Ordered ONE (12:03)
--- NOTE | 2016-10-09 12:35 | REP ---
Clinical: Acute chest pain. Technique: Axial contrast enhanced images from the thoracic inlet to the upper abdomen using 100 ml Isovue 370 intravenous contrast material with coronal and sagittal re-formations. Findings: Satisfactory enhancement of the pulmonary vasculature is achieved and no filling defects are identified to suggest pulmonary embolus. Small left lower lobe consolidation along with bibasilar atelectasis (left greater than right) is appreciated. Subtle ground-glass changes in in the right apex remains stable compared to 2015 and likely represent chronic change. Atherosclerotic changes to the thoracic aorta and coronary arteries noted without aortic aneurysm. Heart is upper limits of normal. No pericardial effusion is appreciated. No obvious axillary, hilar, or mediastinal adenopathy. Surrounding musculoskeletal structures demonstrate age-related changes. Impression: 1. No evidence for pulmonary embolus. 2. Small left lower lobe pneumonia/consolidation with bibasilar atelectasis. Subtle air space disease to the right lower lobe may represent early pneumonia as well. Follow-up to resolution recommended. Signed by Jalil Paredes MD 10/09/2016 12:26 P
[2016-10-09] MEDS ORDERED: ZOSYN 3.375 GM VIAL (J2543) As Ordered ONE (12:39)
[2016-10-09] MEDS ORDERED: cefTRIAXone SOD 1 GM VIAL (J0696) As Ordered ONE (12:56)
[2016-10-09] MEDS ORDERED: ONDANSETRON 4MG/2ML VIAL (J2405) IV PRN (13:15)
[2016-10-09] MEDS ORDERED: AZITHROMYCIN INJ 500MG VIAL (J0456) As Ordered ONE (13:40)
[2016-10-09] MEDS ORDERED: METO-346 PO (14:11)
[2016-10-09] MEDS ORDERED: CEPH500C PO (14:11)
[2016-10-09] MEDS ORDERED: AMIO20TA PO (14:11)
[2016-10-09] MEDS ORDERED: ALBUTEROL SULFATE 2.5 MG/0.5 ML INH NEB SOLN NEB PRN (15:15)
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
--- NOTE | 2016-10-09 15:17 | EDDOCDS ---
Physician Documentation [facility] Name: Tushar Quiros Age: 76 yrs Sex: Male : 1940 Arrival Date: 10/09/2016 Time: 10:42 Bed 3 Private MD: Disposition: 10/09/16 12:56 Hospitalization ordered by Joyce Valdez for Inpatient Admission. Preliminary diagnosis is Pneumonia, unspecified organism. - Bed requested for PCU. - Status is Inpatient Admission. pml - Condition is Stable. - Problem is new. - Symptoms are unchanged. Historical: - Allergies: no known allergies; - Home Meds: 1. Keflex 500 mg Oral cap three times a day filled 09/27 2. ramipril 5 mg Oral cap once daily 3. amlodipine 5 mg Oral tab 1 tab once daily 4. amiodarone 200 mg Oral tab 1 tab 2 times per day 5. metoprolol tartrate 12.5mg Oral tab 1 tab 2 times per day 6. atorvastatin 40 mg oral tab 1 tab once daily not filled isnce 08/23 - PMHx: Atrial Fib; vtach; - PSHx: Heart Surgery; defibrillator placement; - Social history: Smoking status: Patient uses tobacco products, heavy tobacco smoker. No barriers to communication noted, The patient speaks fluent Japanese, Speaks appropriately for age. - Family history: Not pertinent. - : The pt / caregiver states he / she is not on anticoagulants. Home medication list is obtained from patients' pharmacy. - Exposure Risk Screening:: None identified. Vital Signs: 10/09 10:48 BP 117 / 63 (auto/); pml 10:49 Pulse 71 MON; Pulse Ox 94% ; pml 10:50 BP 117 / 63; Pulse 72; Resp 20; Temp 97.2(O); Pulse Ox 92% on R/A; Weight 58.97 kg / rn1 130.01 lbs (R); Height 5 ft. 6 in. (167.64 cm) (R); Pain 10/10; 11:15 Pulse 64 MON; Pulse Ox 96% ; pml 11:15 BP 175 / 81 (auto/); pml 11:30 Pulse 62 MON; Pulse Ox 97% ; pml 11:30 BP 188 / 88 (auto/); pml 11:45 Pulse 63 MON; Pulse Ox 98% ; pml 11:45 BP 160 / 78 (auto/); pml 12:00 Pulse 61 MON; Pulse Ox 97% ; pml 12:00 BP 171 / 87 (auto/); pml 12:05 Pulse 60 MON; Pulse Ox 97% ; pml 12:15 BP 161 / 80 (auto/); pml 12:30 Pulse 71 MON; Pulse Ox 98% ; pml 12:30 BP 157 / 69 (auto/); pml 12:45 Pulse 68 MON; Pulse Ox 98% ; pml 12:45 BP 155 / 77 (auto/); pml 13:00 Pulse 67 MON; Pulse Ox 98% ; pml 13:00 BP 155 / 67 (auto/); pml 13:15 Pulse 67 MON; Pulse Ox 98% ; pml 13:15 BP 152 / 71 (auto/); pml 13:30 Pulse 67 MON; Pulse Ox 97% ; pml 13:30 BP 135 / 73 (auto/); pml 13:45 Pulse 69 MON; pml 13:45 BP 168 / 77 (auto/); pml 14:00 Pulse 71 MON; Pulse Ox 95% ; pml 14:00 BP 160 / 74 (auto/); pml 14:15 Pulse 70 MON; Pulse Ox 96% ; pml 14:15 BP 149 / 66 (auto/); pml 14:30 Pulse 69 MON; Pulse Ox 98% ; pml 14:30 BP 131 / 68 (auto/); pml 15:14 BP 131 / 63; Pulse 63; Resp 20; Temp 97.5(T); Pulse Ox 96% on 6 lpm NC; pml 10:50 Body Mass Index 20.98 (58.97 kg, 167.64 cm) rn1 MDM: 10:44 Nuclear Physician/Pulse Ox/q 30 min VS ordered. br1 10:44 IV Saline Lock ordered. br1 10:44 Rhythm Strip to chart ordered. br1 10:44 Undress patient appropriately for examination ordered. br1 10:45 ECG WITH READING ER PHYS+CARDIAG ordered. EDMS 10:45 B-Type Natiuretic Peptide Ordered. EDMS 10:45 Basic Metabolic Profile Ordered. EDMS 10:45 CBC with Diff Ordered. EDMS 10:45 Cardiac Injury Profile Ordered. EDMS 10:45 Troponin Ordered. EDMS 10:46 Chest, 1 View Ordered. EDMS 10:49 MAGNESIUM LEVEL Ordered. EDMS 10:49 PHOSPHOROUS LEVEL Ordered. EDMS 10:56 Call Respiratory ordered. br1 10:57 -Arterial Blood Gas Ordered. EDMS 10:58 Call Respiratory complete. deg 11:10 -Arterial Blood Gas Reviewed. br1 11:11 PT/INR Ordered. EDMS 11:11 PTT Ordered. EDMS 11:15 LIPASE Ordered. EDMS 11:15 LIVER PROFILE Ordered. EDMS 11:15 CBC with Diff Reviewed. br1 11:53 B-Type Natiuretic Peptide Reviewed. br1 11:53 Basic Metabolic Profile Reviewed. br1 11:53 Cardiac Injury Profile Reviewed. br1 11:53 LIVER PROFILE Reviewed. br1 11:53 Troponin Reviewed. br1 11:53 MAGNESIUM LEVEL Reviewed. br1 11:53 PHOSPHOROUS LEVEL Reviewed. br1 11:53 PT/INR Reviewed. br1 11:53 PTT Reviewed. br1 11:53 LIPASE Reviewed. br1 11:53 Chest, 1 View Reviewed. br1 11:55 CT Chest Angio R/O PE Ordered. EDMS 12:32 -Blood Culture (Adults Only), peripheral from different site, or from device/port/PICC br1 etc. if present ordered. 12:32 -Blood Culture Ordered. EDMS 12:33 BED REQUEST+ADM ordered. EDMS 12:36 -Blood Culture (Adults Only), peripheral from different site, or from device/port/PICC deg etc. if present complete. 12:37 vancomycin 1 grams IVPB once over 60 mins; dilute in 250mL of NS or D5W ordered. br1 12:37 Piperacillin-Tazobactam 3.375 grams IVPB once over 30 mins; dilute in 50mL of NS or D5W br1 ordered. 12:38 BLOOD CULTURES Ordered. EDMS 12:48 Financial registration complete. mm15 12:54 cefTRIAXone 1 grams IVPB once over 30 mins; dilute in 50mL of NS or D5W ordered. br1 12:54 azithromycin 500 mg IVPB once over 1 hrs; dilute in 250mL of D5W or NS ordered. br1 13:14 [facility] [place] [facility] Payment Agreement was scanned into Verified Person and attached to record. mm15 13:18 Admission / Observation Status ordered. EDMS 13:18 REGULAR DIET ordered. EDMS 13:19 PHYSICAL THERAPY EVAL & TREAT ordered. EDMS 15:14 RESPIRATORY PANEL Ordered. EDMS Administered Medications: 12:54 Not Given (Dr. Valdez wishes CTX/Azithro): vancomycin 1 grams IVPB once over 60 mins; br1 dilute in 250mL of NS or D5W 12:54 Not Given (Dr. José Miguel johnson CTX/Azithro): Piperacillin-Tazobactam 3.375 grams IVPB once br1 over 30 mins; dilute in 50mL of NS or D5W 13:00 Drug: cefTRIAXone 1 grams [ceftriaxone 1 gram solution for injection] Route: IVPB; pml Infused Over: 30 mins; Site: left antecubital; 13:40 Follow up: IV Status: Completed infusion pml 13:45 Drug: azithromycin 500 mg [azithromycin 500 mg intravenous solution] Route: IVPB; pml Infused Over: 1 hrs; Site: left antecubital; 14:47 Follow up: IV Status: Completed infusion; IV Intake: 250ml pml Signatures: Dispatcher [employer] EDMS Michelle Jackson, Senior Animator Unit deg Parth Santos MD MD br1 Shawnee Huang RN RN pml Roosevelt Bernard mm15 The chart was reviewed and I authenticate all verbal orders and agree with the evaluation and treatment provided.Corrections: (The following items were deleted from the chart) 10:49 10:46 MAGNESIUM LEVEL+LAB ordered. EDMS EDMS 10:49 10:46 PHOSPHOROUS LEVEL+LAB ordered. EDMS EDMS 11:12 10:50 The pt / caregiver states he / she is on anticoagulants: coumadin. pml pml 11:14 11:12 LIVER PROFILE+LAB ordered. EDMS EDMS 11:14 11:12 LIPASE+LAB ordered. EDMS EDMS Attachments: 13:14 [facility] Payment Agreement mm15 MTDD
[2016-10-09 15:25] VITALS: BP 139/78
[2016-10-09] MEDS: ATORVASTATIN 20 MG TAB PO SCH (16:05)
[2016-10-09] MEDS: amLODIPine 5 MG TAB PO SCH (16:06)
[2016-10-09] MEDS: ASPIRIN 81 MG CHEW TABLET PO SCH (16:06)
[2016-10-09] MEDS: RAMIPRIL 5 MG CAP PO SCH (16:07)
[2016-10-09 20:00] VITALS: BP 123/78
[2016-10-09] MEDS: AMIODARONE 200 MG TAB (PACERONE) PO SCH (20:10)
[2016-10-09] MEDS: METOPROLOL TART 12.5 MG PER 1/2 TAB PO SCH (20:14)
[2016-10-09] MEDS: ACETAMINOPHEN 500 MG TAB PO PRN (20:20)
[2016-10-09] MEDS: IPRATROPIUM 0.5MG/ALBUTEROL 2.5MG INH SOL UD 3ML (DUONEB)(J7620) NEB SCH (20:42)
--- NOTE | 2016-10-09 20:47 | HPE ---
DATE OF ADMISSION: 10/09/2016 PRIMARY CARE PROVIDER: Nba Clark MD CHIEF COMPLAINT: Cough and cold for 3 days, shortness of breath for 1 day. PAST MEDICAL HISTORY: 1. Ventricular tachycardia, persistent, status post AICD defibrillator placement in September 2016. 2. Atrial fibrillation. 3. Coronary artery disease, status post myocardial infarction times two and status post stent. 4. Hypertension. 5. Hyperlipidemia. 6. Chronic kidney disease stage III. 7. Vitamin D deficiency. HISTORY OF PRESENT ILLNESS: This is a 76-year-old male with the above past medical history who had a defibrillator placed 2 weeks ago who presented to the hospital with 3 day history of upper respiratory tract symptoms with cough, cold, sore throat and shortness of breath for 1 day with wheezing. The patient had sick contact in the house, both his sister and [id number] have had upper respiratory tract symptoms. Initially, on presentation, the patient was noted to be hypoxic, requiring 6 liters by nasal cannula to maintain oxygen saturation above 95%. The patient was very wheezy and rhonchorous and received nebulizers. The patient had a CT angio done, which showed small left lower lobe pneumonia with bibasilar atelectasis and there may be early pneumonia in the right lower lobe also. There was no pulmonary embolism. The patient was then admitted to the hospitalist service for some type of pneumonia. PAST SURGICAL HISTORY: 1. AICD placement two weeks ago. 2. Cardiac stents in the past. 3. Prostate surgery for prostate cancer in the past. Additional past medical history: 1. Prostate cancer status post surgery in the past. 2. Diverticulosis of the ascending and rectosigmoid colon. 3. 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 SOCIAL HISTORY: The patient smokes about one pack in two weeks. Does not abuse alcohol or recreational drugs. FAMILY HISTORY: Nothing significant. HOME MEDICATIONS: - amiodarone 200 mg by mouth twice a day - amlodipine 5 mg by mouth daily - aspirin 81 mg by mouth daily - atorvastatin 40 mg by mouth daily - cholecalciferol 1000 units by mouth daily - metoprolol 12.5 mg by mouth twice a day - Enalapril 5 mg by mouth daily ALLERGIES: No known allergies. REVIEW OF SYSTEMS: All 10-point review of systems are negative except for those mentioned in the history of present illness. PHYSICAL EXAMINATION: VITAL SIGNS: Blood pressure 168/77, pulse 71, respiratory rate 18, pulse oximetry 94% with 5 liters nasal cannula. GENERAL: The patient is awake, alert and oriented times three. Sitting up in bed in no acute distress. HEENT: Normocephalic, atraumatic. Moist mucous membranes. Anicteric eyes. CHEST: Bilateral rhonchi and wheezing. There are also lots of conductive sounds from the throat. CARDIOVASCULAR: S1, S2 regular. No rub, murmur, or gallop. ABDOMEN: Soft, nontender. Bowel sounds present. EXTREMITIES: No edema. LABORATORY DATA: WBC 12.5 hemoglobin 11.9, platelets 234. Sodium 140, potassium 4.4, chloride 107, bicarbonate 27, BUN 25, creatinine 1.56, glucose 150, calcium 8.5. Liver function tests are normal. Cardiac enzymes are negative. BNP is 325. Lipase is 116. ASSESSMENT AND PLAN: This is a 76-year-old male admitted for pneumonia. PLAN: 1. For pneumonia, we will continue the patient on ceftriaxone and azithromycin. 2. Acute kidney injury. We will continue to monitor. Creatinine is slightly above baseline. 3. History of sustained ventricular tachycardia, status post AICD. We will continue with amiodarone. 4. History of atrial fibrillation. We will continue with metoprolol and amiodarone. 5. History of hyperlipidemia. We will continue with atorvastatin. 6. Possible history of hypertension. We will continue with amlodipine and Ramipril. 7. Deep vein thrombosis (DVT) prophylaxis has been ordered. 8. Gastrointestinal prophylaxis is not required. 9. Hypoxia. We will continue with oxygen supplementation and nebulizers with ipratropium and albuterol. We will also send a respiratory panel. 10. Coronary artery disease, status post stenting. We will continue with aspirin, beta dandre, atorvastatin.
[2016-10-09 23:42] VITALS: BP 105/75
[2016-10-10] MEDS: IPRATROPIUM 0.5MG/ALBUTEROL 2.5MG INH SOL UD 3ML (DUONEB)(J7620) NEB SCH ×4 (01:05→19:48)
[2016-10-10] MEDS: ACETAMINOPHEN 500 MG TAB PO PRN ×3 (03:44→16:45)
[2016-10-10 05:26] VITALS: BP 122/71
[2016-10-10 05:35] LABS: BASO % 0.1 % (0.0-1.0); EOS # 0.1 K/mm3 (0.0-0.50); EOS % 0.7 % (0.0-3.0); LARGE UNSTAINED CELL # 0.1 K/mm3 (0.0-0.4); LARGE UNSTAINED CELL % 1.2 % (0.0-4.0); LYMPH # 0.5 K/mm3 (1.5-4.5); MEAN CORPUSCULAR HEMOGLOBIN 31.1 pg (27.0-33.0); MEAN CORPUSCULAR HGB CONC 33.3 g/dl (32.0-36.5); MEAN CORPUSCULAR VOLUME 93.4 fl (80.0-96.0); MONO # 0.7 K/mm3 (0.0-0.8); NEUTROPHILS # 10.3 K/mm3 (1.8-7.7); NEUTROPHILS % 88.1 % (36.0-66.0); PLATELET COUNT, AUTOMATED 207 k/mm3 (150-450); WHITE BLOOD COUNT 11.7 K/mm3 (4.0-10.0)
[2016-10-10 05:58] LABS: ANION GAP 13 MEQ/L (8-16); BLOOD UREA NITROGEN 26 MG/DL (7-18); CALCIUM LEVEL 8.6 MG/DL (8.8-10.2); CARBON DIOXIDE LEVEL 21 MEQ/L (21-32); CHLORIDE LEVEL 107 MEQ/L (98-107); CREATININE FOR GFR 1.23 MG/DL (0.70-1.30); GLOMERULAR FILTRATION RATE > 60.0 (>42); GLUCOSE, FASTING 110 MG/DL (83-110); POTASSIUM SERUM 3.9 MEQ/L (3.5-5.1); SODIUM LEVEL 141 MEQ/L (136-145)
--- NOTE | 2016-10-10 07:45 | ECGEPIP ---
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
[2016-10-10 08:00] VITALS: BP 125/71
[2016-10-10] MEDS ORDERED: AZITHROMYCIN 250 MG TAB PO SCH (09:00)
[2016-10-10] MEDS: amLODIPine 5 MG TAB PO SCH (09:18)
[2016-10-10] MEDS: RAMIPRIL 5 MG CAP PO SCH (09:18)
[2016-10-10] MEDS: ATORVASTATIN 20 MG TAB PO SCH (09:18)
[2016-10-10] MEDS: AMIODARONE 200 MG TAB (PACERONE) PO SCH ×2 (09:18→21:16)
[2016-10-10] MEDS: ASPIRIN 81 MG CHEW TABLET PO SCH (09:18)
[2016-10-10] MEDS: METOPROLOL TART 12.5 MG PER 1/2 TAB PO SCH ×2 (09:19→21:16)
[2016-10-10] MEDS: PIPERACILLIN/TAZOBACTAM SOD 2.25 GM in D5W MINI-BAG PLUS 50 ML IV SCH ×2 (09:19→18:04)
[2016-10-10] MEDS: ENOXAPARIN 30 MG/0.3 ML SYR (J1650) SC SCH (09:23)
[2016-10-10] MEDS ORDERED: VANCOMYCIN HCL 500 MG in D5W MINI-BAG PLUS 100 ML IV ONE (10:00)
[2016-10-10] MEDS: guaiFENesin ER 600 MG TAB PO SCH ×2 (10:44→21:16)
[2016-10-10] MEDS ORDERED: VANCOMYCIN HCL 750 MG, VIAL MATE ADAPTER 1 EACH in D5W 250 ML IV ONE (11:00)
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
[2016-10-10 12:00] VITALS: BP 104/59
[2016-10-10] MEDS ORDERED: cefTRIAXone SOD 1 GM in D5W MINI-BAG PLUS 50 ML IV SCH (13:00)
[2016-10-10] MEDS: SLF 3 ML SYR IV SCH ×2 (15:08→22:55)
[2016-10-10 16:00] VITALS: BP 104/81
[2016-10-10] MEDS: SLF 3 ML SYR IV PRN (18:05)
[2016-10-10 20:00] VITALS: BP 115/73
[2016-10-11] VITALS (7 sets, daily range): BP systolic 95–120; BP diastolic 56–74
[2016-10-11] MEDS: SLF 3 ML SYR IV PRN (00:05)
[2016-10-11] MEDS: PIPERACILLIN/TAZOBACTAM SOD 2.25 GM in D5W MINI-BAG PLUS 50 ML IV SCH ×3 (00:05→17:12)
[2016-10-11] MEDS: ACETAMINOPHEN 500 MG TAB PO PRN ×3 (00:13→21:16)
[2016-10-11] MEDS: IPRATROPIUM 0.5MG/ALBUTEROL 2.5MG INH SOL UD 3ML (DUONEB)(J7620) NEB SCH ×4 (01:00→19:33)
[2016-10-11] MEDS: SLF 3 ML SYR IV SCH ×3 (05:22→21:15)
[2016-10-11 05:56] LABS: BASO % 0.2 % (0.0-1.0); EOS # 0.2 K/mm3 (0.0-0.50); EOS % 2.2 % (0.0-3.0); LARGE UNSTAINED CELL # 0.1 K/mm3 (0.0-0.4); LARGE UNSTAINED CELL % 1.1 % (0.0-4.0); LYMPH # 0.8 K/mm3 (1.5-4.5); LYMPH % 8.7 % (24.0-44.0); MEAN CORPUSCULAR HEMOGLOBIN 31.6 pg (27.0-33.0); MEAN CORPUSCULAR HGB CONC 33.9 g/dl (32.0-36.5); MEAN CORPUSCULAR VOLUME 93.2 fl (80.0-96.0); MONO # 0.6 K/mm3 (0.0-0.8); MONO % 7.8 % (0.0-5.0); NEUTROPHILS # 6.6 K/mm3 (1.8-7.7); NEUTROPHILS % 79.9 % (36.0-66.0); PLATELET COUNT, AUTOMATED 212 k/mm3 (150-450); RED CELL DISTRIBUTION WIDTH 13.1 % (11.5-14.5); WHITE BLOOD COUNT 8.2 K/mm3 (4.0-10.0)
[2016-10-11 06:07] LABS: CALCIUM LEVEL 8.1 MG/DL (8.8-10.2); CREATININE FOR GFR 1.24 MG/DL (0.70-1.30); POTASSIUM SERUM 3.6 MEQ/L (3.5-5.1)
[2016-10-11] MEDS: VANCOMYCIN HCL 1,000 MG, VIAL MATE ADAPTER 1 EACH in D5W 250 ML IV SCH (09:18)
[2016-10-11] MEDS: guaiFENesin ER 600 MG TAB PO SCH ×2 (09:19→21:15)
[2016-10-11] MEDS: ENOXAPARIN 30 MG/0.3 ML SYR (J1650) SC SCH (09:19)
[2016-10-11] MEDS: RAMIPRIL 5 MG CAP PO SCH (09:20)
[2016-10-11] MEDS: AMIODARONE 200 MG TAB (PACERONE) PO SCH ×2 (09:20→21:14)
[2016-10-11] MEDS: ASPIRIN 81 MG CHEW TABLET PO SCH (09:20)
[2016-10-11] MEDS: amLODIPine 5 MG TAB PO SCH (09:20)
[2016-10-11] MEDS: METOPROLOL TART 12.5 MG PER 1/2 TAB PO SCH ×2 (09:20→21:15)
[2016-10-11] MEDS: ATORVASTATIN 20 MG TAB PO SCH (09:21)
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
[2016-10-11] MEDS ORDERED: SENOKOT S TAB PO PRN (13:45)
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
--- NOTE | 2016-10-11 16:18 | EDDOCDS ---
Physician Documentation [facility] Name: Tushar Quiros Age: 76 yrs Sex: Male : 1940 Arrival Date: 10/09/2016 Time: 10:42 Bed 3 Private MD: Disposition: 10/09/16 12:56 Hospitalization ordered by Joyce Valdez for Inpatient Admission. Preliminary diagnosis is Pneumonia, unspecified organism. - Bed requested for PCU. - Status is Inpatient Admission. pml - Condition is Stable. - Problem is new. - Symptoms are unchanged. Historical: - Allergies: no known allergies; - Home Meds: 1. Keflex 500 mg Oral cap three times a day filled 09/27 2. ramipril 5 mg Oral cap once daily 3. amlodipine 5 mg Oral tab 1 tab once daily 4. amiodarone 200 mg Oral tab 1 tab 2 times per day 5. metoprolol tartrate 12.5mg Oral tab 1 tab 2 times per day 6. atorvastatin 40 mg oral tab 1 tab once daily not filled isnce 08/23 - PMHx: Atrial Fib; vtach; - PSHx: Heart Surgery; defibrillator placement; - Social history: Smoking status: Patient uses tobacco products, heavy tobacco smoker. No barriers to communication noted, The patient speaks fluent Chinese, Speaks appropriately for age. - Family history: Not pertinent. - : The pt / caregiver states he / she is not on anticoagulants. Home medication list is obtained from patients' pharmacy. - Exposure Risk Screening:: None identified. Vital Signs: 10/09 10:48 BP 117 / 63 (auto/); pml 10:49 Pulse 71 MON; Pulse Ox 94% ; pml 10:50 BP 117 / 63; Pulse 72; Resp 20; Temp 97.2(O); Pulse Ox 92% on R/A; Weight 58.97 kg / rn1 130.01 lbs (R); Height 5 ft. 6 in. (167.64 cm) (R); Pain 10/10; 11:15 Pulse 64 MON; Pulse Ox 96% ; pml 11:15 BP 175 / 81 (auto/); pml 11:30 Pulse 62 MON; Pulse Ox 97% ; pml 11:30 BP 188 / 88 (auto/); pml 11:45 Pulse 63 MON; Pulse Ox 98% ; pml 11:45 BP 160 / 78 (auto/); pml 12:00 Pulse 61 MON; Pulse Ox 97% ; pml 12:00 BP 171 / 87 (auto/); pml 12:05 Pulse 60 MON; Pulse Ox 97% ; pml 12:15 BP 161 / 80 (auto/); pml 12:30 Pulse 71 MON; Pulse Ox 98% ; pml 12:30 BP 157 / 69 (auto/); pml 12:45 Pulse 68 MON; Pulse Ox 98% ; pml 12:45 BP 155 / 77 (auto/); pml 13:00 Pulse 67 MON; Pulse Ox 98% ; pml 13:00 BP 155 / 67 (auto/); pml 13:15 Pulse 67 MON; Pulse Ox 98% ; pml 13:15 BP 152 / 71 (auto/); pml 13:30 Pulse 67 MON; Pulse Ox 97% ; pml 13:30 BP 135 / 73 (auto/); pml 13:45 Pulse 69 MON; pml 13:45 BP 168 / 77 (auto/); pml 14:00 Pulse 71 MON; Pulse Ox 95% ; pml 14:00 BP 160 / 74 (auto/); pml 14:15 Pulse 70 MON; Pulse Ox 96% ; pml 14:15 BP 149 / 66 (auto/); pml 14:30 Pulse 69 MON; Pulse Ox 98% ; pml 14:30 BP 131 / 68 (auto/); pml 15:14 BP 131 / 63; Pulse 63; Resp 20; Temp 97.5(T); Pulse Ox 96% on 6 lpm NC; pml 10:50 Body Mass Index 20.98 (58.97 kg, 167.64 cm) rn1 MDM: 10:44 Intake Clinician/Pulse Ox/q 30 min VS ordered. br1 10:44 IV Saline Lock ordered. br1 10:44 Rhythm Strip to chart ordered. br1 10:44 Undress patient appropriately for examination ordered. br1 10:45 ECG WITH READING ER PHYS+CARDIAG ordered. EDMS 10:45 B-Type Natiuretic Peptide Ordered. EDMS 10:45 Basic Metabolic Profile Ordered. EDMS 10:45 CBC with Diff Ordered. EDMS 10:45 Cardiac Injury Profile Ordered. EDMS 10:45 Troponin Ordered. EDMS 10:46 Chest, 1 View Ordered. EDMS 10:49 MAGNESIUM LEVEL Ordered. EDMS 10:49 PHOSPHOROUS LEVEL Ordered. EDMS 10:56 Call Respiratory ordered. br1 10:57 -Arterial Blood Gas Ordered. EDMS 10:58 Call Respiratory complete. deg 11:10 -Arterial Blood Gas Reviewed. br1 11:11 PT/INR Ordered. EDMS 11:11 PTT Ordered. EDMS 11:15 LIPASE Ordered. EDMS 11:15 LIVER PROFILE Ordered. EDMS 11:15 CBC with Diff Reviewed. br1 11:53 B-Type Natiuretic Peptide Reviewed. br1 11:53 Basic Metabolic Profile Reviewed. br1 11:53 Cardiac Injury Profile Reviewed. br1 11:53 LIVER PROFILE Reviewed. br1 11:53 Troponin Reviewed. br1 11:53 MAGNESIUM LEVEL Reviewed. br1 11:53 PHOSPHOROUS LEVEL Reviewed. br1 11:53 PT/INR Reviewed. br1 11:53 PTT Reviewed. br1 11:53 LIPASE Reviewed. br1 11:53 Chest, 1 View Reviewed. br1 11:55 CT Chest Angio R/O PE Ordered. EDMS 12:32 -Blood Culture (Adults Only), peripheral from different site, or from device/port/PICC br1 etc. if present ordered. 12:32 -Blood Culture Ordered. EDMS 12:33 BED REQUEST+ADM ordered. EDMS 12:36 -Blood Culture (Adults Only), peripheral from different site, or from device/port/PICC deg etc. if present complete. 12:37 vancomycin 1 grams IVPB once over 60 mins; dilute in 250mL of NS or D5W ordered. br1 12:37 Piperacillin-Tazobactam 3.375 grams IVPB once over 30 mins; dilute in 50mL of NS or D5W br1 ordered. 12:38 BLOOD CULTURES Ordered. EDMS 12:48 Financial registration complete. mm15 12:54 cefTRIAXone 1 grams IVPB once over 30 mins; dilute in 50mL of NS or D5W ordered. br1 12:54 azithromycin 500 mg IVPB once over 1 hrs; dilute in 250mL of D5W or NS ordered. br1 13:14 [facility] Payment Agreement was scanned into [employer] and attached to record. mm15 13:18 Admission / Observation Status ordered. EDMS 13:18 REGULAR DIET ordered. EDMS 13:19 PHYSICAL THERAPY EVAL & TREAT ordered. EDMS 15:14 RESPIRATORY PANEL Ordered. EDMS 10/10 10:04 T-Sheet-- Draft Copy was scanned into [employer] and attached to record. gb 15:12 ECG/EKG was scanned into [employer] and attached to record. gb 15:12 Rhythm Strip was scanned into [employer] and attached to record. gb Administered Medications: 10/09 12:54 Not Given (Dr. Jos éMiguel johnson CTX/Azithro): vancomycin 1 grams IVPB once over 60 mins; br1 dilute in 250mL of NS or D5W 12:54 Not Given (Dr. José Miguel johnson CTX/Azithro): Piperacillin-Tazobactam 3.375 grams IVPB once br1 over 30 mins; dilute in 50mL of NS or D5W 13:00 Drug: cefTRIAXone 1 grams [ceftriaxone 1 gram solution for injection] Route: IVPB; pml Infused Over: 30 mins; Site: left antecubital; 13:40 Follow up: IV Status: Completed infusion pml 13:45 Drug: azithromycin 500 mg [azithromycin 500 mg intravenous solution] Route: IVPB; pml Infused Over: 1 hrs; Site: left antecubital; 14:47 Follow up: IV Status: Completed infusion; IV Intake: 250ml pml Signatures: Dispatcher [employer] EDMichelle Yañez, Improvement Spec Unit deg Juana Valdez, Reg Reg gb Parth Santos MD MD br1 Shawnee Huang RN RN pml Roosevelt Bernard mm15 The chart was reviewed and I authenticate all verbal orders and agree with the evaluation and treatment provided.Corrections: (The following items were deleted from the chart) 10:49 10:46 MAGNESIUM LEVEL+LAB ordered. EDMS EDMS 10:49 10:46 PHOSPHOROUS LEVEL+LAB ordered. EDMS EDMS 11:12 10:50 The pt / caregiver states he / she is on anticoagulants: coumadin. pml pml 11:14 11:12 LIVER PROFILE+LAB ordered. EDMS EDMS 11:14 11:12 LIPASE+LAB ordered. EDMS EDMS Attachments: 13:14 [facility] Payment Agreement mm15 10/10 10:04 T-Sheet-- Draft Copy gb 15:12 ECG/EKG gb Chart Complete MTDD
--- NOTE | 2016-10-11 16:18 | EDDOCDS ---
Physician Documentation [facility] Name: Tushar Quiros Age: 76 yrs Sex: Male : 1940 Arrival Date: 10/09/2016 Time: 10:42 Bed 3 Private MD: Disposition: 10/09/16 12:56 Hospitalization ordered by Joyce Valdez for Inpatient Admission. Preliminary diagnosis is Pneumonia, unspecified organism. - Bed requested for PCU. - Status is Inpatient Admission. pml - Condition is Stable. - Problem is new. - Symptoms are unchanged. Historical: - Allergies: no known allergies; - Home Meds: 1. Keflex 500 mg Oral cap three times a day filled 09/27 2. ramipril 5 mg Oral cap once daily 3. amlodipine 5 mg Oral tab 1 tab once daily 4. amiodarone 200 mg Oral tab 1 tab 2 times per day 5. metoprolol tartrate 12.5mg Oral tab 1 tab 2 times per day 6. atorvastatin 40 mg oral tab 1 tab once daily not filled isnce 08/23 - PMHx: Atrial Fib; vtach; - PSHx: Heart Surgery; defibrillator placement; - Social history: Smoking status: Patient uses tobacco products, heavy tobacco smoker. No barriers to communication noted, The patient speaks fluent Telugu, Speaks appropriately for age. - Family history: Not pertinent. - : The pt / caregiver states he / she is not on anticoagulants. Home medication list is obtained from patients' pharmacy. - Exposure Risk Screening:: None identified. Vital Signs: 10/09 10:48 BP 117 / 63 (auto/); pml 10:49 Pulse 71 MON; Pulse Ox 94% ; pml 10:50 BP 117 / 63; Pulse 72; Resp 20; Temp 97.2(O); Pulse Ox 92% on R/A; Weight 58.97 kg / rn1 130.01 lbs (R); Height 5 ft. 6 in. (167.64 cm) (R); Pain 10/10; 11:15 Pulse 64 MON; Pulse Ox 96% ; pml 11:15 BP 175 / 81 (auto/); pml 11:30 Pulse 62 MON; Pulse Ox 97% ; pml 11:30 BP 188 / 88 (auto/); pml 11:45 Pulse 63 MON; Pulse Ox 98% ; pml 11:45 BP 160 / 78 (auto/); pml 12:00 Pulse 61 MON; Pulse Ox 97% ; pml 12:00 BP 171 / 87 (auto/); pml 12:05 Pulse 60 MON; Pulse Ox 97% ; pml 12:15 BP 161 / 80 (auto/); pml 12:30 Pulse 71 MON; Pulse Ox 98% ; pml 12:30 BP 157 / 69 (auto/); pml 12:45 Pulse 68 MON; Pulse Ox 98% ; pml 12:45 BP 155 / 77 (auto/); pml 13:00 Pulse 67 MON; Pulse Ox 98% ; pml 13:00 BP 155 / 67 (auto/); pml 13:15 Pulse 67 MON; Pulse Ox 98% ; pml 13:15 BP 152 / 71 (auto/); pml 13:30 Pulse 67 MON; Pulse Ox 97% ; pml 13:30 BP 135 / 73 (auto/); pml 13:45 Pulse 69 MON; pml 13:45 BP 168 / 77 (auto/); pml 14:00 Pulse 71 MON; Pulse Ox 95% ; pml 14:00 BP 160 / 74 (auto/); pml 14:15 Pulse 70 MON; Pulse Ox 96% ; pml 14:15 BP 149 / 66 (auto/); pml 14:30 Pulse 69 MON; Pulse Ox 98% ; pml 14:30 BP 131 / 68 (auto/); pml 15:14 BP 131 / 63; Pulse 63; Resp 20; Temp 97.5(T); Pulse Ox 96% on 6 lpm NC; pml 10:50 Body Mass Index 20.98 (58.97 kg, 167.64 cm) rn1 MDM: 10:[address] Production Manager/Pulse Ox/q 30 min VS ordered. br1 10:44 IV Saline Lock ordered. br1 10:44 Rhythm Strip to chart ordered. br1 10:44 Undress patient appropriately for examination ordered. br1 10:45 ECG WITH READING ER PHYS+CARDIAG ordered. EDMS 10:45 B-Type Natiuretic Peptide Ordered. EDMS 10:45 Basic Metabolic Profile Ordered. EDMS 10:45 CBC with Diff Ordered. EDMS 10:45 Cardiac Injury Profile Ordered. EDMS 10:45 Troponin Ordered. EDMS 10:46 Chest, 1 View Ordered. EDMS 10:49 MAGNESIUM LEVEL Ordered. EDMS 10:49 PHOSPHOROUS LEVEL Ordered. EDMS 10:56 Call Respiratory ordered. br1 10:57 -Arterial Blood Gas Ordered. EDMS 10:58 Call Respiratory complete. deg 11:10 -Arterial Blood Gas Reviewed. br1 11:11 PT/INR Ordered. EDMS 11:11 PTT Ordered. EDMS 11:15 LIPASE Ordered. EDMS 11:15 LIVER PROFILE Ordered. EDMS 11:15 CBC with Diff Reviewed. br1 11:53 B-Type Natiuretic Peptide Reviewed. br1 11:53 Basic Metabolic Profile Reviewed. br1 11:53 Cardiac Injury Profile Reviewed. br1 11:53 LIVER PROFILE Reviewed. br1 11:53 Troponin Reviewed. br1 11:53 MAGNESIUM LEVEL Reviewed. br1 11:53 PHOSPHOROUS LEVEL Reviewed. br1 11:53 PT/INR Reviewed. br1 11:53 PTT Reviewed. br1 11:53 LIPASE Reviewed. br1 11:53 Chest, 1 View Reviewed. br1 11:55 CT Chest Angio R/O PE Ordered. EDMS 12:32 -Blood Culture (Adults Only), peripheral from different site, or from device/port/PICC br1 etc. if present ordered. 12:32 -Blood Culture Ordered. EDMS 12:33 BED REQUEST+ADM ordered. EDMS 12:36 -Blood Culture (Adults Only), peripheral from different site, or from device/port/PICC deg etc. if present complete. 12:37 vancomycin 1 grams IVPB once over 60 mins; dilute in 250mL of NS or D5W ordered. br1 12:37 Piperacillin-Tazobactam 3.375 grams IVPB once over 30 mins; dilute in 50mL of NS or D5W br1 ordered. 12:38 BLOOD CULTURES Ordered. EDMS 12:48 Financial registration complete. mm15 12:54 cefTRIAXone 1 grams IVPB once over 30 mins; dilute in 50mL of NS or D5W ordered. br1 12:54 azithromycin 500 mg IVPB once over 1 hrs; dilute in 250mL of D5W or NS ordered. br1 13:14 [facility] Payment Agreement was scanned into [email or web address] and attached to record. mm15 13:18 Admission / Observation Status ordered. EDMS 13:18 REGULAR DIET ordered. EDMS 13:19 PHYSICAL THERAPY EVAL & TREAT ordered. EDMS 15:14 RESPIRATORY PANEL Ordered. EDMS 10/10 10:04 T-Sheet-- Draft Copy was scanned into [email or web address] and attached to record. gb 15:12 ECG/EKG was scanned into [employer] and attached to record. gb 15:12 Rhythm Strip was scanned into [employer] and attached to record. gb Administered Medications: 10/09 12:54 Not Given (Dr. José Miguel johnson CTX/Azithro): vancomycin 1 grams IVPB once over 60 mins; br1 dilute in 250mL of NS or D5W 12:54 Not Given (Dr. José Miguel johnson CTX/Azithro): Piperacillin-Tazobactam 3.375 grams IVPB once br1 over 30 mins; dilute in 50mL of NS or D5W 13:00 Drug: cefTRIAXone 1 grams [ceftriaxone 1 gram solution for injection] Route: IVPB; pml Infused Over: 30 mins; Site: left antecubital; 13:40 Follow up: IV Status: Completed infusion pml 13:45 Drug: azithromycin 500 mg [azithromycin 500 mg intravenous solution] Route: IVPB; pml Infused Over: 1 hrs; Site: left antecubital; 14:47 Follow up: IV Status: Completed infusion; IV Intake: 250ml pml Signatures: Dispatcher [employer] EDMichelle Yañez, Traffic Circuit Engineer Unit deg Juana Valdez, Reg Reg gb Parth Santos MD MD br1 Shawnee Huang RN RN pml Roosevelt Bernard mm15 The chart was reviewed and I authenticate all verbal orders and agree with the evaluation and treatment provided.Corrections: (The following items were deleted from the chart) 10:49 10:46 MAGNESIUM LEVEL+LAB ordered. EDMS EDMS 10:49 10:46 PHOSPHOROUS LEVEL+LAB ordered. EDMS EDMS 11:12 10:50 The pt / caregiver states he / she is on anticoagulants: coumadin. pml pml 11:14 11:12 LIVER PROFILE+LAB ordered. EDMS EDMS 11:14 11:12 LIPASE+LAB ordered. EDMS EDMS Attachments: 13:14 [facility] Payment Agreement mm15 10/10 10:04 T-Sheet-- Draft Copy gb 15:12 ECG/EKG gb Chart Complete MTDD
[2016-10-12] MEDS: IPRATROPIUM 0.5MG/ALBUTEROL 2.5MG INH SOL UD 3ML (DUONEB)(J7620) NEB SCH ×4 (01:23→20:49)
[2016-10-12] MEDS: PIPERACILLIN/TAZOBACTAM SOD 2.25 GM in D5W MINI-BAG PLUS 50 ML IV SCH ×3 (01:48→17:34)
[2016-10-12] MEDS: ACETAMINOPHEN 500 MG TAB PO PRN ×3 (04:22→17:35)
[2016-10-12] MEDS: SLF 3 ML SYR IV SCH ×3 (05:09→21:25)
[2016-10-12 06:00] VITALS: BP 125/74
[2016-10-12 06:09] LABS: BASO % 0.1 % (0.0-1.0); EOS # 0.3 K/mm3 (0.0-0.50); EOS % 3.8 % (0.0-3.0); LARGE UNSTAINED CELL # 0.1 K/mm3 (0.0-0.4); LARGE UNSTAINED CELL % 1.1 % (0.0-4.0); LYMPH # 0.6 K/mm3 (1.5-4.5); LYMPH % 7.4 % (24.0-44.0); MEAN CORPUSCULAR HGB CONC 33.5 g/dl (32.0-36.5); MEAN CORPUSCULAR VOLUME 92.5 fl (80.0-96.0); MONO # 0.5 K/mm3 (0.0-0.8); MONO % 7.3 % (0.0-5.0); NEUTROPHILS % 80.3 % (36.0-66.0); PLATELET COUNT, AUTOMATED 226 k/mm3 (150-450); RED CELL DISTRIBUTION WIDTH 12.7 % (11.5-14.5); WHITE BLOOD COUNT 7.5 K/mm3 (4.0-10.0)
[2016-10-12 06:25] LABS: CALCIUM LEVEL 8.2 MG/DL (8.8-10.2); CREATININE FOR GFR 1.25 MG/DL (0.70-1.30); GLOMERULAR FILTRATION RATE 59.5 (>42); POTASSIUM SERUM 3.4 MEQ/L (3.5-5.1)
[2016-10-12] MEDS: VANCOMYCIN HCL 1,000 MG, VIAL MATE ADAPTER 1 EACH in D5W 250 ML IV SCH (08:50)
[2016-10-12] MEDS: ATORVASTATIN 20 MG TAB PO SCH (09:00)
[2016-10-12] MEDS: AMIODARONE 200 MG TAB (PACERONE) PO SCH ×2 (09:01→21:28)
[2016-10-12] MEDS: RAMIPRIL 5 MG CAP PO SCH (09:01)
[2016-10-12] MEDS: ASPIRIN 81 MG CHEW TABLET PO SCH (09:01)
[2016-10-12] MEDS: guaiFENesin ER 600 MG TAB PO SCH ×2 (09:01→21:24)
[2016-10-12] MEDS: METOPROLOL TART 12.5 MG PER 1/2 TAB PO SCH ×2 (09:02→21:29)
[2016-10-12] MEDS: ENOXAPARIN 30 MG/0.3 ML SYR (J1650) SC SCH (09:02)
[2016-10-12] MEDS: amLODIPine 5 MG TAB PO SCH (09:02)
--- NOTE | 2016-10-12 10:27 | IPNPDOC ---
Text Note Date of Service The patient was seen on 10/12/16. NOTE Subjective: Patient is a 76-year-old male admitted with hospital acquired pneumonia, seen for hospitalist follow up. Since as he is feeling a little bit on her today, that he is getting better on a daily basis. He is breathing a little bit better today. He says he was able to walk approximately 10 feet yesterday. He continues to complain of pain in his left ribs. He denies any fevers, chills, sweats, chest pain/pressure, nausea, vomiting, diarrhea or constipation. Objective: Vital signs: Temperature 96.5, MAXIMUM TEMPERATURE 97.6, pulse 99, respiratory rate 17, blood pressure 112/74, pulse ox 91% on 2 L nasal cannula Gen.: Patient awake, alert and oriented, verbal and able to answer questions appropriately. Patient does not appear to be in any acute distress Heart: Regular rate and rhythm, normal S1-S2. No murmurs, rubs, clicks or gallops Lungs: Bilateral rhonchi to auscultation Abdomen: Active bowel sounds, soft, nontender, no masses to palpation Extremities: No swelling in either lower extremity Laboratory data: CBC: White blood cells 7.5, hemoglobin and hematocrit 11.6/34.7, platelets 226 Chemistry: Sodium 139, potassium 3.4, chloride 105, carbon dioxide 23, BUN 30, creatinine 1.25, glucose 86, calcium 8.2 Microbiology: Blood culture 1: Staphylococcus capitis Blood culture 1 no growth after 48 hours Assessment: Patient is a 76-year-old male with hospital acquired pneumonia. Patient continues to make daily improvements, was able to walk approximately 10 feet yesterday. Plan: #1: Hospital-acquired pneumonia: Patient continues to improve. Continue Zosyn 2.25 g IV every 8 hours, vancomycin 1 g every 24 hours, Mucinex 600 mg by mouth twice a day, albuterol sulfate 2.5 mg inhalation every 2 hours when necessary, DuoNeb 3 mL every 6 hours #2: Blood culture positive with Staphylococcus capitis: This is normal skin daryl, most likely contaminant. No further evaluation or treatment necessary #3: Left rib pain: Stable, no further evaluation at this time #4: Acute kidney injury: Resolved #5: History of sustained ventricular tachycardia, status post AICD: Stable, patient not complaining of any chest pain #6: History of atrial fibrillation: Continue amiodarone 200 mg by mouth twice a day, Lopressor 12.5 mg by mouth twice a day #7: Hyperlipidemia: Stable, continue atorvastatin 40 mg by mouth daily #8: Hypertension: Stable, continue amlodipine 5 mg by mouth daily, ramipril 5 mg by mouth daily #9: Coronary artery disease: Stable, continue aspirin 81 mg by mouth 2 daily, Lopressor 12.5 mg by mouth twice a day #10: DVT prophylaxis: Continue Lovenox 30 mg subcutaneously daily My preceptor for this patient encounter was physically present in the building during the encounter and was fully available. As needed, all aspects of the patient interview, examination, medical decision making process, and medical care plan development were reviewed and approved by the preceptor. Preceptor is aware and concurs with the plan as stated in the body of this note and will attest to such by his/her cosignature Inés JACKSON, I+O VS, Inés, I+O Laboratory Tests 10/12/16 05:29 Calcium Level 8.2 L, Red Blood Count 3.75 L, Mean Corpuscular Volume 92.5, Mean Corpuscular Hemoglobin 31.0, Mean Corpuscular Hemoglobin Concent 33.5, Red Cell Distribution Width 12.7, Neutrophils (%) (Auto) 80.3 H, Lymphocytes (%) (Auto) 7.4 L, Monocytes (%) (Auto) 7.3 H, Eosinophils (%) (Auto) 3.8 H, Basophils (%) ( Auto) 0.1, Neutrophils # (Auto) 6.0, Lymphocytes # (Auto) 0.6 L, Monocytes # ( Auto) 0.5, Eosinophils # (Auto) 0.3, Basophils # (Auto) 0.0 Vital Signs Date Time Temp Pulse Resp B/P Pulse Ox O2 Delivery O2 Flow Rate FiO2 10/12/16 09:02 99 112/74 10/12/16 06:00 96.5 17 91 Nasal Cannula 10/11/16 21:00 2.0 I&O- Last 24 Hours up to 6 AM 10/12/16 06:00 Intake Total 650 ml Output Total 1050 ml Balance -400 ml GME ATTESTATION GME ATTESTATION My preceptor for this patient encounter was physically present in the building during the encounter and was fully available. As needed, all aspects of the patient interview, examination, medical decision making process, and medical care plan development were reviewed and approved by the preceptor. Preceptor is aware and concurs with the plan as stated in the body of this note and will attest to such by his/her cosignature. ATTENDING NOTE I have both independently examined this patient as well as reviewed documentation. I have discussed the findings in detail with the author the findings and plan of treatment as documented in the note. I will continue to follow the patient and offer further guidance to the patients care as necessary. JESÚS DIETRICH DO Oct 12, 2016 10:27 PREMA HILL DO Oct 17, 2016 13:58
[2016-10-12 14:00] VITALS: BP 111/58
[2016-10-12] MEDS ORDERED: POTASSIUM CHLORIDE 10 MEQ SR TABLET PO ONE (20:30)
[2016-10-12 20:51] VITALS: O2SAT 98
[2016-10-12 22:00] VITALS: BP 109/70
[2016-10-13] MEDS: ACETAMINOPHEN 500 MG TAB PO PRN ×3 (00:10→18:06)
[2016-10-13] MEDS: PIPERACILLIN/TAZOBACTAM SOD 2.25 GM in D5W MINI-BAG PLUS 50 ML IV SCH ×3 (00:11→18:06)
[2016-10-13] MEDS: IPRATROPIUM 0.5MG/ALBUTEROL 2.5MG INH SOL UD 3ML (DUONEB)(J7620) NEB SCH ×4 (01:35→20:10)
[2016-10-13 01:38] VITALS: O2SAT 98
[2016-10-13] MEDS: SLF 3 ML SYR IV SCH ×3 (05:26→20:25)
[2016-10-13 06:00] VITALS: BP 131/62
[2016-10-13 07:18] LABS: BASO % 0.2 % (0.0-1.0); EOS # 0.3 K/mm3 (0.0-0.50); LARGE UNSTAINED CELL # 0.1 K/mm3 (0.0-0.4); LARGE UNSTAINED CELL % 1.7 % (0.0-4.0); LYMPH # 0.6 K/mm3 (1.5-4.5); LYMPH % 8.4 % (24.0-44.0); MEAN CORPUSCULAR HGB CONC 32.5 g/dl (32.0-36.5); MEAN CORPUSCULAR VOLUME 92.4 fl (80.0-96.0); MONO # 0.5 K/mm3 (0.0-0.8); MONO % 7.9 % (0.0-5.0); NEUTROPHILS # 5.2 K/mm3 (1.8-7.7); NEUTROPHILS % 76.8 % (36.0-66.0); PLATELET COUNT, AUTOMATED 245 k/mm3 (150-450); RED CELL DISTRIBUTION WIDTH 12.7 % (11.5-14.5); WHITE BLOOD COUNT 6.8 K/mm3 (4.0-10.0)
[2016-10-13 07:36] LABS: CALCIUM LEVEL 8.1 MG/DL (8.8-10.2); CREATININE FOR GFR 1.25 MG/DL (0.70-1.30); GLOMERULAR FILTRATION RATE 59.5 (>42); POTASSIUM SERUM 3.7 MEQ/L (3.5-5.1)
--- NOTE | 2016-10-13 08:42 | PHACANCOPD ---
PHARMACY VANCOMYCIN DOSING Pt Demographics Demographics Patient Age:76 , Weight:59.500 , Gender: male Adjusted Body Weight Date: 10/13/16, Adjusted Body Weight: Kg Vancomycin Vancomycin indication: HCAP Vancomycin Target Ranges: 15-20 mcg/ml Vancomycin Load Y/N: Yes Load Dose Date Time Vancomycin Load Dose: 1500mg Date: 10/13/16 Time: 0800 Vancomycin Dose Date: 10/13/16. Current Vancomycin Dose: [1g IV Q24H] Intermittent Dosing?: No Labs Labs Item Value Date Time White Blood Count 6.8 K/mm3 10/13/16 0655 White Blood Count 7.5 K/mm3 10/12/16 0529 White Blood Count 8.2 K/mm3 10/11/16 0522 Creatinine 1.25 MG/DL 10/13/16 0655 Creatinine 1.25 MG/DL 10/12/16 0529 Creatinine 1.24 MG/DL 10/11/16 0522 Micro Microbiology 10/09/16 Blood Culture - Preliminary, Resulted No Growth after 72 hours. All specime... 10/09/16 Blood Culture - Final, Complete Staphylococcus Capitis 10/09/16 Respiratory Virus Panel (PCR) ([facility]) - Final, Complete Creatinine Clearance Date:10/13/16. Estimated Creatinine Clearance: ~ [43.95ml/min]. Pending Labs Vancomycin trough scheduled 10/15/16 @1300 Assessment and Plan Maintaining Current Dose?: No Reason for dose change: Trough too low Pharmacist Note Pharmacist Note Date: 10/13/16. Pharmacist note: Day #4 vancomycin tx. Trough today resulted at 11.5mcg/ml. A 1500mg x 1 loading dose has been scheduled this morning at 0800, and the patient's maintenance regimen will be increased from 1g IV Q24H to 1g IV Q18H starting 10/14/16 @ 0200. WBC is currently WNL, scr and output remain stable, and patient remains afebrile. Blood cultures resulted positive for staph capitis in 1 of 2 tubes - most likely indicative of a contaminant. A follow-up trough has been scheduled for 10/15/16 @1300. We will continue to monitor and make further adjustments as needed. ERUM [facility] Oct 13, 2016 08:41
[2016-10-13] MEDS: METOPROLOL TART 12.5 MG PER 1/2 TAB PO SCH ×2 (09:00→20:25)
[2016-10-13] MEDS ORDERED: VANCOMYCIN HCL 500 MG in D5W MINI-BAG PLUS 100 ML IV ONE (09:00)
[2016-10-13] MEDS: VANCOMYCIN HCL 1,000 MG, VIAL MATE ADAPTER 1 EACH in D5W 250 ML IV SCH (09:39)
[2016-10-13] MEDS: amLODIPine 5 MG TAB PO SCH (09:40)
[2016-10-13] MEDS: ASPIRIN 81 MG CHEW TABLET PO SCH (09:40)
[2016-10-13] MEDS: ATORVASTATIN 20 MG TAB PO SCH (09:40)
[2016-10-13] MEDS: AMIODARONE 200 MG TAB (PACERONE) PO SCH ×2 (09:40→20:22)
[2016-10-13] MEDS: ENOXAPARIN 30 MG/0.3 ML SYR (J1650) SC SCH (09:41)
[2016-10-13] MEDS: RAMIPRIL 5 MG CAP PO SCH (09:41)
[2016-10-13] MEDS: guaiFENesin ER 600 MG TAB PO SCH ×2 (09:41→20:22)
--- NOTE | 2016-10-13 12:44 | IPNPDOC ---
Text Note Date of Service The patient was seen on 10/13/16. NOTE Subjective: Patient is a 76-year-old male admitted with hospital acquired pneumonia, seen for hospitalist follow-up. Patient says that he is not doing as good today, that his breathing is a little bit worse today. Also that he is coughing stuff up. He also continues to have left-sided rib pain. He denies any fevers, chills , sweats, chest pain/pressure, nausea, vomiting, diarrhea, constipation. Objective: Vital signs: Temperature 96.7, MAXIMUM TEMPERATURE 97.2, pulse 59, respiratory rate 18, blood pressure 144/62, pulse ox 94% on 2 L nasal cannula Gen.: Patient awake, alert and oriented, verbal and able to answer questions appropriately. Patient does not appear to be in any acute distress Heart: Regular rate and rhythm, normal S1-S2. No murmurs, rubs, clicks or gallops Lungs: Right-sided rhonchi, bilateral wheezes, transmitted upper airway sounds Abdomen: Active bowel sounds, soft, nontender, no masses to palpation Extremities: No swelling in either lower extremity Musculoskeletal: Left ribs tender to palpation Laboratory data: CBC: White blood cells 6.8, hemoglobin and hematocrit 11.5/35.5, platelets 245 Chemistry: Sodium 140, potassium 3.7, chloride 107, carbon dioxide 24, BUN 24, creatinine 1.25, glucose 82, calcium 8.1 Microbiology: Blood culture 1 no growth after 72 hours Assessment: Patient is a 76-year-old male with hospital acquired pneumonia. Patient reports that he is a little bit worse today. Plan: #1: Hospital-acquired pneumonia: Patient reports his breathing is a little bit worse today. Order placed for acapella. Continue albuterol sulfate 2.5 mg inhalation every 2 hours when necessary, DuoNeb 3 mL inhalation every 6 hours, Zosyn 2.5 g IV every 8 hours, vancomycin 1 g every 18 hours #2: Blood culture positive with Staphylococcus capitis: This is normal skin daryl, most likely contaminant. No further evaluation or treatment necessary #3: Left rib pain: Stable, no further evaluation at this time #4: Acute kidney injury: Resolved #5: History of sustained ventricular tachycardia, status post AICD: Stable, patient not complaining of any chest pain #6: History of atrial fibrillation: Continue amiodarone 200 mg by mouth twice a day, Lopressor 12.5 mg by mouth twice a day #7: Hyperlipidemia: Stable, continue atorvastatin 40 mg by mouth daily #8: Hypertension: Stable, continue amlodipine 5 mg by mouth daily, ramipril 5 mg by mouth daily #9: Coronary artery disease: Stable, continue aspirin 81 mg by mouth 2 daily, Lopressor 12.5 mg by mouth twice a day #10: DVT prophylaxis: Continue Lovenox 30 mg subcutaneously daily My preceptor for this patient encounter was physically present in the building during the encounter and was fully available. As needed, all aspects of the patient interview, examination, medical decision making process, and medical care plan development were reviewed and approved by the preceptor. Preceptor is aware and concurs with the plan as stated in the body of this note and will attest to such by his/her cosignature Inés JACKSON, I+O VSInés I+O Laboratory Tests 10/13/16 06:55 Calcium Level 8.1 L, Red Blood Count 3.84 L, Mean Corpuscular Volume 92.4, Mean Corpuscular Hemoglobin 30.0, Mean Corpuscular Hemoglobin Concent 32.5, Red Cell Distribution Width 12.7, Neutrophils (%) (Auto) 76.8 H, Lymphocytes (%) (Auto) 8.4 L, Monocytes (%) (Auto) 7.9 H, Eosinophils (%) (Auto) 5.0 H, Basophils (%) ( Auto) 0.2, Neutrophils # (Auto) 5.2, Lymphocytes # (Auto) 0.6 L, Monocytes # ( Auto) 0.5, Eosinophils # (Auto) 0.3, Basophils # (Auto) 0.0 Vital Signs Date Time Temp Pulse Resp B/P Pulse Ox O2 Delivery O2 Flow Rate FiO2 10/13/16 09:45 Nasal Cannula 2.0 10/13/16 09:41 144/62 10/13/16 09:40 59 10/13/16 06:00 96.7 18 94 I&O- Last 24 Hours up to 6 AM 10/13/16 06:00 Intake Total 1160 ml Output Total 1200 ml Balance -40 ml GME ATTESTATION GME ATTESTATION My preceptor for this patient encounter was physically present in the building during the encounter and was fully available. As needed, all aspects of the patient interview, examination, medical decision making process, and medical care plan development were reviewed and approved by the preceptor. Preceptor is aware and concurs with the plan as stated in the body of this note and will attest to such by his/her cosignature. JESÚS DIETRICH DO Oct 13, 2016 12:44 PREMA HILL DO Oct 17, 2016 13:58
[2016-10-13 14:00] VITALS: BP 133/58
[2016-10-13 20:45] VITALS: BP 104/59
[2016-10-14] MEDS: PIPERACILLIN/TAZOBACTAM SOD 2.25 GM in D5W MINI-BAG PLUS 50 ML IV SCH ×3 (01:04→16:30)
[2016-10-14] MEDS: VANCOMYCIN HCL 1,000 MG, VIAL MATE ADAPTER 1 EACH in D5W 250 ML IV SCH ×2 (01:42→20:08)
[2016-10-14] MEDS: ACETAMINOPHEN 500 MG TAB PO PRN ×2 (01:43→20:07)
[2016-10-14] MEDS: IPRATROPIUM 0.5MG/ALBUTEROL 2.5MG INH SOL UD 3ML (DUONEB)(J7620) NEB SCH ×4 (01:56→20:03)
[2016-10-14 05:15] VITALS: BP 135/65
[2016-10-14] MEDS: SLF 3 ML SYR IV SCH ×3 (06:03→20:08)
[2016-10-14 06:31] LABS: ANION GAP 9 MEQ/L (8-16); BLOOD UREA NITROGEN 19 MG/DL (7-18); CALCIUM LEVEL 7.9 MG/DL (8.8-10.2); CARBON DIOXIDE LEVEL 24 MEQ/L (21-32); CHLORIDE LEVEL 109 MEQ/L (98-107); CREATININE FOR GFR 1.14 MG/DL (0.70-1.30); GLOMERULAR FILTRATION RATE > 60.0 (>42); GLUCOSE, FASTING 87 MG/DL (83-110); POTASSIUM SERUM 3.2 MEQ/L (3.5-5.1); SODIUM LEVEL 142 MEQ/L (136-145)
[2016-10-14 07:15] LABS: BASO % 0.2 % (0.0-1.0); EOS # 0.4 K/mm3 (0.0-0.50); EOS % 6.9 % (0.0-3.0); LARGE UNSTAINED CELL # 0.1 K/mm3 (0.0-0.4); LARGE UNSTAINED CELL % 0.7 % (0.0-4.0); LYMPH # 0.6 K/mm3 (1.5-4.5); LYMPH % 9.1 % (24.0-44.0); MEAN CORPUSCULAR HEMOGLOBIN 31.6 pg (27.0-33.0); MEAN CORPUSCULAR HGB CONC 33.7 g/dl (32.0-36.5); MEAN CORPUSCULAR VOLUME 93.9 fl (80.0-96.0); MONO # 0.6 K/mm3 (0.0-0.8); MONO % 8.8 % (0.0-5.0); NEUTROPHILS # 4.8 K/mm3 (1.8-7.7); NEUTROPHILS % 74.3 % (36.0-66.0); PLATELET COUNT, AUTOMATED 243 k/mm3 (150-450); RED CELL DISTRIBUTION WIDTH 12.9 % (11.5-14.5); WHITE BLOOD COUNT 6.4 K/mm3 (4.0-10.0)
[2016-10-14] MEDS: ENOXAPARIN 30 MG/0.3 ML SYR (J1650) SC SCH (08:45)
[2016-10-14] MEDS: METOPROLOL TART 12.5 MG PER 1/2 TAB PO SCH ×2 (08:46→20:08)
[2016-10-14] MEDS: ATORVASTATIN 20 MG TAB PO SCH (08:46)
[2016-10-14] MEDS: RAMIPRIL 5 MG CAP PO SCH (08:46)
[2016-10-14] MEDS: amLODIPine 5 MG TAB PO SCH (08:46)
[2016-10-14] MEDS: ASPIRIN 81 MG CHEW TABLET PO SCH (08:46)
[2016-10-14] MEDS: guaiFENesin ER 600 MG TAB PO SCH ×2 (08:46→20:07)
[2016-10-14] MEDS: AMIODARONE 200 MG TAB (PACERONE) PO SCH ×2 (08:46→20:07)
[2016-10-14] MEDS ORDERED: POTASSIUM CHLORIDE 10 MEQ SR TABLET PO ONE (12:45)
[2016-10-14 13:36] VITALS: BP 126/59
--- NOTE | 2016-10-14 16:07 | IPN ---
DATE: 10/14/2016 SUBJECTIVE: Patient is seen today. No acute events reported. Patient is still requiring oxygen support. OBJECTIVE: VITAL SIGNS: Temperature 96.7, pulse 55, respirations 18, blood pressure 135/65 , pulse oximetry 97% with two liters nasal cannula. GENERAL: No sign of acute distress, alert and oriented times three. HEENT: Normocephalic, atraumatic. Extraocular motors grossly intact. CARDIOVASCULAR: Positive S1, S2, irregularly irregular. LUNGS: Positive rhonchi, bilateral wheezes. ABDOMEN: Bowel sounds present. No rebound, no guarding. EXTREMITIES: No swelling, no edema. LABORATORY DATA: WBC 6.4, hemoglobin 11, hematocrit 32.6, platelet count 243. Sodium 142, potassium 3.3, chloride 109, carbon dioxide 24, BUN 19, creatinine 1.14, GFR greater than 60, fasting glucose 87, calcium 7.9. ASSESSMENT AND PLAN: 1. Hospital-acquired pneumonia. Continue with breathing treatments. Patient is on intravenous (IV) Zosyn and vancomycin. Patient still requires oxygen support but we will try to wean off the patient's oxygen today. 2. Left rib pain, stable, no fracture. Continue to monitor. 3. Acute kidney injury, resolved. 4. History of ventricular tachycardia status post automatic implantable cardioverter defibrillator (AICD). 5. History of atrial fibrillation. On amiodarone and Lopressor. Heart rate within satisfactory range. 6. Hypertension. On amlodipine and ramipril. 7. Coronary artery disease. On aspirin and Lopressor. 8. Deep venous thrombosis (DVT) prophylaxis. On Lovenox. DISPOSITION: Currently patient is being treated for hospital-acquired pneumonia. Currently patient still requires oxygen support. Patient is cleared by physical therapy. Will try to wean patient off the oxygen. If patient can tolerate the weaning, patient will likely finish the course of antibiotic tomorrow, and we anticipate discharge in the next 24 hours if patient continues to improve. [facility]
[2016-10-14 20:04] VITALS: O2SAT 94
[2016-10-14 20:50] VITALS: BP 145/64
[2016-10-15] MEDS: SLF 3 ML SYR IV SCH ×3 (00:07→21:21)
[2016-10-15] MEDS: PIPERACILLIN/TAZOBACTAM SOD 2.25 GM in D5W MINI-BAG PLUS 50 ML IV SCH ×3 (00:07→16:11)
[2016-10-15] MEDS: IPRATROPIUM 0.5MG/ALBUTEROL 2.5MG INH SOL UD 3ML (DUONEB)(J7620) NEB SCH ×4 (01:29→19:21)
[2016-10-15 05:10] VITALS: BP 155/72
[2016-10-15 06:20] LABS: BASO % 0.1 % (0.0-1.0); EOS # 0.5 K/mm3 (0.0-0.50); EOS % 6.5 % (0.0-3.0); LARGE UNSTAINED CELL # 0.1 K/mm3 (0.0-0.4); LARGE UNSTAINED CELL % 1.8 % (0.0-4.0); LYMPH # 0.8 K/mm3 (1.5-4.5); LYMPH % 10.2 % (24.0-44.0); MEAN CORPUSCULAR HEMOGLOBIN 30.5 pg (27.0-33.0); MEAN CORPUSCULAR HGB CONC 32.6 g/dl (32.0-36.5); MEAN CORPUSCULAR VOLUME 93.6 fl (80.0-96.0); MONO # 0.6 K/mm3 (0.0-0.8); MONO % 8.1 % (0.0-5.0); NEUTROPHILS # 5.4 K/mm3 (1.8-7.7); NEUTROPHILS % 73.2 % (36.0-66.0); PLATELET COUNT, AUTOMATED 298 k/mm3 (150-450); RED CELL DISTRIBUTION WIDTH 12.8 % (11.5-14.5); WHITE BLOOD COUNT 7.4 K/mm3 (4.0-10.0)
[2016-10-15 06:48] LABS: ANION GAP 10 MEQ/L (8-16); BLOOD UREA NITROGEN 15 MG/DL (7-18); CALCIUM LEVEL 8.2 MG/DL (8.8-10.2); CARBON DIOXIDE LEVEL 23 MEQ/L (21-32); CHLORIDE LEVEL 109 MEQ/L (98-107); CREATININE FOR GFR 1.13 MG/DL (0.70-1.30); GLOMERULAR FILTRATION RATE > 60.0 (>42); GLUCOSE, FASTING 81 MG/DL (83-110); POTASSIUM SERUM 3.4 MEQ/L (3.5-5.1); SODIUM LEVEL 142 MEQ/L (136-145)
[2016-10-15] MEDS: AMIODARONE 200 MG TAB (PACERONE) PO SCH ×2 (08:09→21:20)
[2016-10-15] MEDS: ATORVASTATIN 20 MG TAB PO SCH (08:10)
[2016-10-15] MEDS: METOPROLOL TART 12.5 MG PER 1/2 TAB PO SCH ×2 (08:10→21:20)
[2016-10-15] MEDS: RAMIPRIL 5 MG CAP PO SCH (08:10)
[2016-10-15] MEDS: ENOXAPARIN 30 MG/0.3 ML SYR (J1650) SC SCH (08:10)
[2016-10-15] MEDS: amLODIPine 5 MG TAB PO SCH (08:11)
[2016-10-15] MEDS: ASPIRIN 81 MG CHEW TABLET PO SCH (08:11)
[2016-10-15] MEDS: guaiFENesin ER 600 MG TAB PO SCH ×2 (08:11→21:20)
--- NOTE | 2016-10-15 11:42 | IPNPDOC ---
Text Note Date of Service The patient was seen on 10/15/16. NOTE Subjective: Patient is a 76-year-old male admitted with hospital-acquired pneumonia, seen for hospitalist follow up. Patient states he is doing a little bit better today. He continues to complain of left-sided rib pain but says this pain is improving. He denies any fevers, chills, sweats, chest pain/pressure, shortness of breath, difficulty breathing, abdominal pain, nausea, vomiting, diarrhea, constipation. While patient was walking 100 feet with nurse, his oxygen saturation while off oxygen dropped to 68%. Objective: Vital signs: Temperature 97.0, pulse 59, respiratory rate 16, blood pressure 155 /72, pulse ox 96% on 2 L nasal cannula Gen.: Patient awake, alert and oriented, verbal and able to answer questions appropriately. Patient does not appear to be in any acute distress Heart: Regular rate and rhythm, normal S1-S2. No murmurs, rubs, clicks or gallops Lungs: Bilateral wheezes, transmitted upper airway sounds Abdomen: Active bowel sounds, soft, nontender, no masses to palpation Extremities: No swelling in either lower extremity Musculoskeletal: Left ribs tender to palpation Laboratory data: CBC: White blood cells 7.4, hemoglobin and hematocrit 11.0/33.8, platelets 298 Chemistry: Sodium 142, potassium of 3.4, chloride 109, carbon dioxide when he 3 , BUN 15, creatinine 1.13, glucose 81, calcium 8.2 Microbiology: Blood culture 1 no growth after 5 days Assessment: Patient is a 76-year-old male with hospital-acquired pneumonia. Patient reports that he is feeling better today than yesterday. Plan: #1: Hospital-acquired pneumonia: Patient continues to require oxygen support, patient unable to be discharged at this time. Continue albuterol sulfate 2.5 mg inhalation every 2 hours when necessary, DuoNeb 3 mL inhalation every 6 hours, Zosyn 2.5 g IV every 8 hours, vancomycin 1 g every 18 hours #2: Blood culture positive with Staphylococcus capitis: This is normal skin daryl, most likely contaminant. No further evaluation or treatment necessary #3: Left rib pain: Negative for fracture, stable, no further evaluation at this time #4: Acute kidney injury: Resolved #5: History of sustained ventricular tachycardia, status post AICD: Stable, patient not complaining of any chest pain #6: History of atrial fibrillation: Continue amiodarone 200 mg by mouth twice a day, Lopressor 12.5 mg by mouth twice a day #7: Hyperlipidemia: Stable, continue atorvastatin 40 mg by mouth daily #8: Hypertension: Stable, continue amlodipine 5 mg by mouth daily, ramipril 5 mg by mouth daily #9: Coronary artery disease: Stable, continue aspirin 81 mg by mouth 2 daily, Lopressor 12.5 mg by mouth twice a day #10: DVT prophylaxis: Continue Lovenox 30 mg subcutaneously daily My preceptor for this patient encounter was physically present in the building during the encounter and was fully available. As needed, all aspects of the patient interview, examination, medical decision making process, and medical care plan development were reviewed and approved by the preceptor. Preceptor is aware and concurs with the plan as stated in the body of this note and will attest to such by his/her cosignature RENETTA,Inés, I+O VS, Inés, I+O Laboratory Tests 10/15/16 05:58 Calcium Level 8.2 L, Red Blood Count 3.61 L, Mean Corpuscular Volume 93.6, Mean Corpuscular Hemoglobin 30.5, Mean Corpuscular Hemoglobin Concent 32.6, Red Cell Distribution Width 12.8, Neutrophils (%) (Auto) 73.2 H, Lymphocytes (%) (Auto) 10.2 L, Monocytes (%) (Auto) 8.1 H, Eosinophils (%) (Auto) 6.5 H, Basophils (%) (Auto) 0.1, Neutrophils # (Auto) 5.4, Lymphocytes # (Auto) 0.8 L, Monocytes # ( Auto) 0.6, Eosinophils # (Auto) 0.5, Basophils # (Auto) 0.0 Vital Signs Date Time Temp Pulse Resp B/P Pulse Ox O2 Delivery O2 Flow Rate FiO2 10/15/16 08:11 59 155/72 10/15/16 05:10 97.0 16 96 Nasal Cannula 2.0 I&O- Last 24 Hours up to 6 AM 10/15/16 06:00 Intake Total 3060 ml Output Total 875 ml Balance 2185 ml JESÚS DIETRICH DO Oct 15, 2016 11:42 PREMA HILL DO Oct 17, 2016 13:56
[2016-10-15 14:00] VITALS: BP 134/61
[2016-10-15] MEDS: VANCOMYCIN HCL 1,000 MG, VIAL MATE ADAPTER 1 EACH in D5W 250 ML IV SCH (14:19)
[2016-10-15 19:21] VITALS: O2SAT 93
[2016-10-15 21:00] VITALS: BP 123/69
[2016-10-15] MEDS: ACETAMINOPHEN 500 MG TAB PO PRN (21:20)
[2016-10-16] MEDS: PIPERACILLIN/TAZOBACTAM SOD 2.25 GM in D5W MINI-BAG PLUS 50 ML IV SCH ×3 (00:09→17:36)
[2016-10-16] MEDS: SLF 3 ML SYR IV SCH ×3 (00:09→20:54)
[2016-10-16] MEDS: IPRATROPIUM 0.5MG/ALBUTEROL 2.5MG INH SOL UD 3ML (DUONEB)(J7620) NEB SCH ×4 (01:44→19:39)
[2016-10-16 05:25] VITALS: BP 131/68
[2016-10-16 05:59] LABS: BASO % 0.2 % (0.0-1.0); EOS # 0.4 K/mm3 (0.0-0.50); LARGE UNSTAINED CELL # 0.1 K/mm3 (0.0-0.4); LARGE UNSTAINED CELL % 1.8 % (0.0-4.0); LYMPH # 0.8 K/mm3 (1.5-4.5); LYMPH % 12.6 % (24.0-44.0); MEAN CORPUSCULAR HEMOGLOBIN 31.4 pg (27.0-33.0); MEAN CORPUSCULAR HGB CONC 33.9 g/dl (32.0-36.5); MEAN CORPUSCULAR VOLUME 92.6 fl (80.0-96.0); MONO # 0.6 K/mm3 (0.0-0.8); MONO % 9.1 % (0.0-5.0); NEUTROPHILS # 4.4 K/mm3 (1.8-7.7); NEUTROPHILS % 70.3 % (36.0-66.0); PLATELET COUNT, AUTOMATED 296 k/mm3 (150-450); RED CELL DISTRIBUTION WIDTH 13.2 % (11.5-14.5); WHITE BLOOD COUNT 6.2 K/mm3 (4.0-10.0)
[2016-10-16 06:23] LABS: ANION GAP 11 MEQ/L (8-16); BLOOD UREA NITROGEN 13 MG/DL (7-18); CALCIUM LEVEL 8.3 MG/DL (8.8-10.2); CARBON DIOXIDE LEVEL 22 MEQ/L (21-32); CHLORIDE LEVEL 110 MEQ/L (98-107); CREATININE FOR GFR 1.15 MG/DL (0.70-1.30); GLOMERULAR FILTRATION RATE > 60.0 (>42); GLUCOSE, FASTING 76 MG/DL (83-110); POTASSIUM SERUM 3.3 MEQ/L (3.5-5.1); SODIUM LEVEL 143 MEQ/L (136-145)
[2016-10-16] MEDS: ENOXAPARIN 30 MG/0.3 ML SYR (J1650) SC SCH (07:58)
[2016-10-16] MEDS: amLODIPine 5 MG TAB PO SCH (07:58)
[2016-10-16] MEDS: VANCOMYCIN HCL 1,000 MG, VIAL MATE ADAPTER 1 EACH in D5W 250 ML IV SCH (07:58)
[2016-10-16] MEDS: ASPIRIN 81 MG CHEW TABLET PO SCH (07:59)
[2016-10-16] MEDS: AMIODARONE 200 MG TAB (PACERONE) PO SCH ×2 (07:59→20:54)
[2016-10-16] MEDS: RAMIPRIL 5 MG CAP PO SCH (07:59)
[2016-10-16] MEDS: ATORVASTATIN 20 MG TAB PO SCH (07:59)
[2016-10-16] MEDS: METOPROLOL TART 12.5 MG PER 1/2 TAB PO SCH ×2 (07:59→20:53)
[2016-10-16] MEDS: guaiFENesin ER 600 MG TAB PO SCH ×2 (07:59→20:54)
[2016-10-16 14:00] VITALS: BP 128/72
--- NOTE | 2016-10-16 14:58 | IPN ---
DATE: 10/16/2016 SUBJECTIVE: Patient is seen and examined in the room today. Patient still has significant crackles and patient started to have shortness of breath with some exertion. No overnight events reported. Patient stated he lives with his sister and [id number] and the niece is the health proxy and the niece just informed medical staff that the family members do not feel the capacity to take care of the patient at home and patient may need placement. OBJECTIVE: VITAL SIGNS: Temperature 96.9, pulse 54, respirations 17, blood pressure 131/68 , pulse oximetry 95% in room air. GENERAL: No sign of acute distress, alert and oriented times three. HEENT: Normocephalic, atraumatic. Extraocular motors grossly intact. CARDIOVASCULAR: Positive S1, S2, irregularly irregular. LUNGS: Positive rhonchi, more significant in the right middle lobe, there are some wheezes. ABDOMEN: Soft, nontender, nondistended. Bowel sounds present. No rebound, no guarding. EXTREMITIES: No swelling, no cyanosis. LABORATORY DATA: WBC 6.2, hemoglobin 10.7, hematocrit 31.5, platelet count 296. Sodium 133, potassium 3.3, chloride 110, carbon dioxide 22, BUN 13, creatinine 1.15, GFR greater than 60, fasting glucose 76, calcium 8.3. ASSESSMENT AND PLAN: 1. Hospital-acquired pneumonia. Patient still has a positive lung exam. In the last 2 days, patient had a desaturation with exertion. Patient is continued on vancomycin and Zosyn. Continue oxygen support. Patient's niece contacted nursing staff, stated that family members no longer have the capacity to take care of the patient. Patient may need placement. 2. Acute kidney injury, resolved. 3. History of ventricular tachycardia status post automatic implantable cardioverter defibrillator (AICD). 4. History of atrial fibrillation, on amiodarone and Lopressor. Heart rate in satisfactory range at this moment. 5. Hypertension, on amlodipine and ramipril. 6. History of coronary artery disease, on aspirin and Lopressor. 7. Deep venous thrombosis (DVT) prophylaxis, on Lovenox. MTDD
[2016-10-16] MEDS: ACETAMINOPHEN 500 MG TAB PO PRN (20:53)
[2016-10-17] MEDS: PIPERACILLIN/TAZOBACTAM SOD 2.25 GM in D5W MINI-BAG PLUS 50 ML IV SCH ×3 (00:30→17:24)
[2016-10-17] MEDS: SLF 3 ML SYR IV SCH ×3 (00:59→20:53)
[2016-10-17] MEDS: VANCOMYCIN HCL 1,000 MG, VIAL MATE ADAPTER 1 EACH in D5W 250 ML IV SCH ×2 (01:01→20:51)
[2016-10-17] MEDS: IPRATROPIUM 0.5MG/ALBUTEROL 2.5MG INH SOL UD 3ML (DUONEB)(J7620) NEB SCH ×4 (01:14→19:31)
[2016-10-17] MEDS: METOPROLOL TART 12.5 MG PER 1/2 TAB PO SCH ×2 (09:00→20:52)
[2016-10-17] MEDS: ATORVASTATIN 20 MG TAB PO SCH (09:13)
[2016-10-17] MEDS: RAMIPRIL 5 MG CAP PO SCH (09:14)
[2016-10-17] MEDS: AMIODARONE 200 MG TAB (PACERONE) PO SCH ×2 (09:14→20:52)
[2016-10-17] MEDS: amLODIPine 5 MG TAB PO SCH (09:15)
[2016-10-17] MEDS: guaiFENesin ER 600 MG TAB PO SCH ×2 (09:15→20:53)
[2016-10-17] MEDS: ASPIRIN 81 MG CHEW TABLET PO SCH (09:15)
[2016-10-17] MEDS: ENOXAPARIN 30 MG/0.3 ML SYR (J1650) SC SCH (09:16)
[2016-10-17 14:00] VITALS: BP 123/56
[2016-10-17] MEDS ORDERED: POTASSIUM CHLORIDE 10 MEQ SR TABLET PO ONE (14:15)
--- NOTE | 2016-10-17 14:42 | IPN ---
DATE OF SERVICE: 10/17/2016 SUBJECTIVE: Patient seen and examined in the room today. Patient stated during rest, his breathing is stable, may or may not require oxygen support; however, as soon as patient has minimal exertion, he will start having shortness of breath and exercise intolerance. At baseline, patient does not require oxygen at home. Patient lives with sister and [id number], who is also around 80 years old. Patient's niece expressed concern that her parents no long have the capacity to take care of the patient. Patient may benefit from placement. OBJECTIVE: VITAL SIGNS: Pulse 59, blood pressure 142/76, oxygen saturation 73% without oxygen. During rest, patient has a pCO2 of greater than 90%. GENERAL: No signs of acute distress. Alert and oriented times three. HEENT: Normocephalic, atraumatic. Extraocular movements grossly intact. CARDIOVASCULAR: Positive S1, S2. Irregularly irregular. LUNGS: Positive rhonchi, most significant in the right middle lobe. No wheezes appreciated. No respiratory distress. No accessory muscle use. Patient does not require oxygen support on rest; however, during minimal exertion, patient starts to show signs of difficulty breathing. ABDOMEN: Soft, nontender, nondistended. Bowel sounds present. No rebound. No guarding. EXTREMITIES: No swelling. No edema. LABORATORY DATA: WBC 6.2, hemoglobin 10.7, hematocrit 31.5, platelet count 296. Sodium 143, potassium 3.3, chloride 110, carbon dioxide 22, BUN 13, creatinine 1.15, GFR greater than 60, fasting glucose 76, calcium 8.3. ASSESSMENT AND PLAN: 1. Hospital-acquired pneumonia. Patient still has desaturation with exertion. At baseline, patient does not require any oxygen. Patient has been on vancomycin and Zosyn. Continue oxygen support. Currently, patient cannot tolerate any type of activities, but patient has been improving continuously. I had a discussion with the patient's family members, who expressed the need for a possible nursing placement because of patient's caregivers no long have the capacity to take care of the patient. 2. Acute kidney injury. Resolved. 3. Hypokalemia. Potassium 3.3. Continue with supplement. 4. History of ventricular tachycardia status post automatic implantable cardioverter defibrillator (AICD). 5. History of atrial fibrillation. Aspirin and Lopressor. Heart rate is in the satisfactory range, heart rate of 59. 6. Deep venous thrombosis (DVT) prophylaxis. Lovenox. 7. History of vitamin D deficiency. 8. History of chronic kidney disease stage III. Resolved. Currently, patient has normal renal function.
[2016-10-17 22:00] VITALS: BP 129/60
[2016-10-18] MEDS: PIPERACILLIN/TAZOBACTAM SOD 2.25 GM in D5W MINI-BAG PLUS 50 ML IV SCH ×2 (01:22→08:11)
[2016-10-18] MEDS: IPRATROPIUM 0.5MG/ALBUTEROL 2.5MG INH SOL UD 3ML (DUONEB)(J7620) NEB SCH ×3 (01:33→13:22)
[2016-10-18] MEDS: SLF 3 ML SYR IV SCH ×2 (05:06→14:39)
[2016-10-18 06:00] VITALS: BP 153/72
[2016-10-18] MEDS ORDERED: POTASSIUM CHLORIDE 10 MEQ SR TABLET PO ONE (07:15)
[2016-10-18] MEDS: ATORVASTATIN 20 MG TAB PO SCH (08:09)
[2016-10-18] MEDS: RAMIPRIL 5 MG CAP PO SCH (08:09)
[2016-10-18 08:10] VITALS: BP 145/67
[2016-10-18] MEDS: ASPIRIN 81 MG CHEW TABLET PO SCH (08:10)
[2016-10-18] MEDS: amLODIPine 5 MG TAB PO SCH (08:10)
[2016-10-18] MEDS: AMIODARONE 200 MG TAB (PACERONE) PO SCH (08:10)
[2016-10-18] MEDS: guaiFENesin ER 600 MG TAB PO SCH (08:10)
[2016-10-18] MEDS: ENOXAPARIN 30 MG/0.3 ML SYR (J1650) SC SCH (08:11)
[2016-10-18] MEDS: METOPROLOL TART 12.5 MG PER 1/2 TAB PO SCH (08:11)
[2016-10-18] MEDS ORDERED: IPRASOL4 IN (10:13)
[2016-10-18] MEDS ORDERED: NICO7DIS4 TD (11:18)
[2016-10-18 14:00] VITALS: BP 123/57
[2016-10-18] MEDS ORDERED: IPRASOL4 NEB (21:00)
--- NOTE | 2016-10-19 09:06 | DSES ---
DATE OF ADMISSION: 10/09/2016 DATE OF DISCHARGE: 10/18/2016 PRIMARY DISCHARGE DIAGNOSES: 1. Health care associated pneumonia. 2. Acute hypoxic respiratory failure requiring supplemental oxygen due to saturations 69% on room air with ambulation. 3. Low potassium, hypokalemia. 4. Acute kidney injury. 5. History of ventricular tachycardia (V-tach). 6. Status post automatic implantable cardio converter-defibrillator (AICD) . 7. History of atrial fibrillation (A-Fib.) 8. History of vitamin D deficiency. 9. Chronic kidney disease stage III. 10. Staph capitis in 1 of 2 blood cultures, most likely contaminant, but requires further evaluation one week after discharge. DISCHARGE MEDICATIONS: - oxygen 2 liters with ambulation - Combivent nebulizer every 6 hours for 10 days - amiodarone 200 mg twice a day - Norvasc 5 daily - aspirin 81 daily - Atorvastatin 40 daily - metoprolol 12.5 twice a day - vitamin B 1000 units daily - Ramipril 5 mg daily FOLLOWUP : He will followup with private care physician within 5-7 days of hospital discharge. PCP to repeat CBC with diff, CRP, ESR, 2sets blood cultures one week after hospital discharge after being off antibiotics for 7 days to further evaluate staph capitis in one of two sets of blood cultures. HOSPITAL COURSE: This is a 76-year-old male who presents to the emergency room with worsening shortness of breath, cough, cold symptoms, sore throat and wheezing with sick contacts with sister and [id number] with upper respiratory infection. The patient was noted to be hypoxic requiring six liters of nasal cannula oxygen 95% in order to be 95%. CT angiogram showed left lower lobe pneumonia with bibasilar atelectasis in the right lower lobe as well. No pulmonary embolus (PE). The patient was started on ceftriaxone, AND Azithromycin due to recent AICD placement two weeks ago. The patient's antibiotics were changed to health care associated pneumonia with vancomycin and Zosyn, completed over a seven day course. The patient has had no fevers during the hospital day. White count improved from 12.5 on admission to 6.2 on discharge. Blood culture grew out Staph capitis most likely a contaminant as the pt had documented URI symptoms and sick contacts. respiratory syncytial virus ( RSV) negative. Due to recent AICD placement two weeks before hospital admission, we are concerned about potential bacteremia, therefore, to be prudent, we recommend rechecking cbc with diffential, crp, esr, and 2 sets of blood cultures to be ordered by his outpatient physician one week after hospital discharge after being off of antibiotics for seven days to determine if the staph capitis blood culture should be further evaluated if repeat outpatient blood cultures return positive. This case was discussed with Infectious disease specialist, Dr. Finn, at the patient's discharge date. The patient had episodes of low potassium which were supplemented. He remained stable but was hypoxic remaining at 69% with ambulation on room air requiring home oxygen. LABS ON DISCHARGE: White count 6.2, hemoglobin 10, hematocrit 31, platelet count 296. Sodium 142, potassium 3.3, chloride 110, bicarbonate 22, BUN 13, creatinine 1.15 , glucose 76. IMAGING STUDIES: CT angiogram, no evidence of pulmonary embolus (PE), small left lower lobe pneumonia consolidation with bibasilar atelectasis. Subtle air space disease to the right lower lobe may represent early pneumonia as well. MTDD
== END 2016-10-18 17:39 | disposition home health service (06) | DRG 193 ==
LOC: M ED 10:42 → M ED INP 13:14 → M PCU 15:25 → M MSPAV 10-11 11:37
PROVIDERS: ADMIT Internal Medicine Nephrology; ATTEND General Practice
DX: J18.9 Pneumonia, unspecified organism (principal); J96.01 Acute respiratory failure with hypoxia; N17.9 Acute kidney failure, unspecified; I47.2 Ventricular tachycardia; N18.3 Chronic kidney disease, stage 3 (moderate); E55.9 Vitamin D deficiency, unspecified; I48.91 Unspecified atrial fibrillation; E87.6 Hypokalemia; B95.7 Other staphylococcus as the cause of diseases classified elsewhere; R07.81 Pleurodynia; I25.10 Atherosclerotic heart disease of native coronary artery without angina pectoris; I25.2 Old myocardial infarction; E78.5 Hyperlipidemia, unspecified; F17.210 Nicotine dependence, cigarettes, uncomplicated; Z95.810 Presence of automatic (implantable) cardiac defibrillator; Z79.82 Long term (current) use of aspirin; Z79.899 Other long term (current) drug therapy; Z85.46 Personal history of malignant neoplasm of prostate

== ENCOUNTER → 2016-11-03 | Outpatient (CLI) | payer MEDICARE ==
[~2016-11-03] MED LIST changes: +AMIO20TA PO; +CEPH500C PO; +IPRASOL4 IN; +IPRASOL4 NEB; +ISOVUE-370 76% 100ML VIAL (Q9967) As Ordered ONE; +METO-346 PO; +NICO7DIS4 TD
--- NOTE | 2016-11-03 14:46 | REP ---
Clinical: Follow up prior nodule/consolidation. Technique: Axial contrast enhanced images from the thoracic inlet to the upper abdomen using 100 ml Isovue 370 intravenous contrast material with coronal and sagittal re-formations. Comparison: 10/09/2016. Findings: Multiple small/moderate areas of ground-glass opacity with central consolidation noted in the upper segment and posterior basilar segment of the right upper lobe represent relatively new findings compared to prior examination and the previously noted areas of consolidation have resolved. Left basilar fibroatelectatic changes are also identified on current examination which may reflect sequelae from prior left lower lobe consolidation. No pleural effusion/reaction or pneumothorax. Mediastinum demonstrates stable cardiomegaly and atherosclerotic changes to the thoracic aorta and coronary arteries. No pericardial effusion. No mediastinal, hilar, or axillary adenopathy. Impression: New areas of opacity and consolidation in the right upper lobe suggest multifocal pneumonia with trace residual left basilar fibroatelectatic changes. Previously identified areas of consolidation have resolved. Signed by Jalil Paredes MD 11/03/2016 02:38 P
== END ==
LOC: M RAD 13:42
PROVIDERS: ATTEND Family Medicine
DX: R91.8 Other nonspecific abnormal finding of lung field (principal)
CPT/HCPCS: 71260; Q9967

== ENCOUNTER → 2017-01-19 | Outpatient (CLI) | payer MEDICARE ==
[~2017-01-19] MED LIST changes: -ISOVUE-370 76% 100ML VIAL (Q9967) As Ordered ONE
[2017-01-19 10:27] LABS: BASO % 0.3 % (0.0-1.0); EOS # 0.5 K/mm3 (0.0-0.50); EOS % 6.8 % (0.0-3.0); LYMPH # 1.2 K/mm3 (1.5-4.5); LYMPH % 14.4 % (24.0-44.0); MEAN CORPUSCULAR HGB CONC 33.3 g/dl (32.0-36.5); MEAN CORPUSCULAR VOLUME 93.1 fl (80.0-96.0); MONO # 0.6 K/mm3 (0.0-0.8); MONO % 7.1 % (0.0-5.0); NEUTROPHILS # 5.4 K/mm3 (1.8-7.7); NEUTROPHILS % 69.9 % (36.0-66.0); RED CELL DISTRIBUTION WIDTH 13.8 % (11.5-14.5); WHITE BLOOD COUNT 7.8 K/mm3 (4.0-10.0)
[2017-01-19 11:08] LABS: CREATININE FOR GFR 1.64 MG/DL (0.70-1.30); GLOMERULAR FILTRATION RATE 43.5 (>42); POTASSIUM SERUM 4.6 MEQ/L (3.5-5.1)
[2017-01-19 11:09] LABS: ALBUMIN 3.7 GM/DL (3.2-5.2); ALBUMIN/GLOBULIN RATIO 1.19 (1.00-1.93); BILIRUBIN,TOTAL 0.5 MG/DL (0.2-1.0); CALCIUM LEVEL 8.7 MG/DL (8.8-10.2); TOTAL PROTEIN 6.8 GM/DL (6.4-8.2)
[2017-01-19 11:10] LABS: FREE T4 1.63 NG/DL (0.76-1.46)
== END ==
LOC: M LAB 09:38
PROVIDERS: ATTEND Family Medicine
DX: E78.5 Hyperlipidemia, unspecified (principal); I10 Essential (primary) hypertension; E55.9 Vitamin D deficiency, unspecified; R63.4 Abnormal weight loss; Z79.899 Other long term (current) drug therapy

== ENCOUNTER → 2017-01-20 | Outpatient (CLI) | payer MEDICARE ==
[~2017-01-20] MED LIST changes: +GASTROGRAFIN SOLUTION 30ML (Q9963) As Ordered ONE; +ISOVUE-370 76% 100ML VIAL (Q9967) As Ordered ONE
--- NOTE | 2017-01-20 14:48 | REP ---
CT STUDY OF THE ABDOMEN AND PELVIS WITHOUT AND WITH IV CONTRAST: With oral contrast. HISTORY: Abnormal weight loss. Comparison CT study February 2015. CT contrast dose: 100 mL of Isovue [address] FINDINGS: There are granulomatous calcifications scattered about the spleen as before. No focal hepatic or splenic lesion is seen. The gallbladder and the pancreas are unremarkable. No adrenal lesion is observed. No retroperitoneal mass or adenopathy is seen. Prostate gland is enlarged. The kidneys enhance symmetrically. There are small cortical cysts bilaterally. The largest of these is the lower pole left kidney measuring 2 cm in greatest diameter. No hydronephrosis is seen. Urinary bladder is unremarkable. No abdominal wall defect is seen. Small and large intestinal bowel loops are unremarkable. A normal appendix is seen. Bone window settings show no bony destructive lesion. Pacemaker leads are seen in the right heart. No change from comparison study. IMPRESSION: Small simple cyst lower pole left kidney. Enlarged prostate gland. Otherwise unremarkable CT abdomen and pelvis. Signed by Billy Hernandez MD 01/20/2017 04:28 P
--- NOTE | 2017-01-20 14:59 | REP ---
CT of the chest with IV contrast: Comparisons are 02/26/2015, 06/01/2015, 10/09/2016 and 11/03/2016. There is a ground-glass opacity in the apex of the right lung measuring 3.5 cm in diameter, unchanged from 02/26/2015. This is a Category 2 lesion, incidence of carcinoma is less than 1%. Annual CT surveillance is recommended. All of the other ground-glass densities identified on 11/03/2016 have resolved. Although ground-glass densities identified on any other prior studies have resolved. There is a 6 ml nodule in the anterior segment right lower lobe on image 51. This is unchanged from 02/26/2015. Therefore this is a Category [address] surveillance is recommended. Annual CT surveillance can be performed with low-dose CT screening protocol. There are no new densities. No acute infiltrates or effusions. There is no mediastinal or hilar adenopathy. There is no axillary adenopathy. The thoracic aorta is unremarkable except for occasional calcified atheroma. Cardiac size is normal. There is occasional calcified atheroma in the coronary arteries. There is a pacemaker. There are no lytic, blastic or destructive skeletal changes. Impression: There is a stable ground-glass density in the apex of the right lung. There is a stable 6 mm nodule in the right lower lobe. These are unchanged from 02/26/2015, therefore, are Category 2 lesions. Annual low-dose screening CT surveillance is recommended. Signed by Renny Woodall MD 01/20/2017 02:50 P
== END ==
LOC: M RAD 11:57
PROVIDERS: ATTEND Family Medicine
DX: R63.4 Abnormal weight loss (principal); R91.8 Other nonspecific abnormal finding of lung field; N28.1 Cyst of kidney, acquired
CPT/HCPCS: 71260; 74178; Q9963; Q9967

== ENCOUNTER 2017-05-27 00:35 | Emergency (ER) | payer MEDICARE ==
[~2017-05-27] VITALS: Ht 165.1 cm; Wt 63.0 kg
[~2017-05-27 00:35] MED LIST changes: +AMIO200T PO; -AMIO20TA PO; -ATOR40TA PO; +ATOR40TA75 PO; -GASTROGRAFIN SOLUTION 30ML (Q9963) As Ordered ONE; -ISOVUE-370 76% 100ML VIAL (Q9967) As Ordered ONE
[2017-05-27] MEDS ORDERED: TETANUS/DIPHTHERIA TOX ADSORB ADULT 0.5ML SYR/VIAL (90714) IM ONE (00:45)
[2017-05-27] MEDS ORDERED: NS 1,000 ML IV ONE (00:45)
[2017-05-27 01:00] LABS: BASO % 0.2 % (0.0-1.0); EOS # 0.2 10^3/uL (0.0-0.50); EOS % 1.7 % (0.0-3.0); IMMATURE GRANULOCYTE % 0.7 % (0-0); LYMPH # 2.9 10^3/uL (1.5-4.5); LYMPH % 27.8 % (24.0-44.0); MEAN CORPUSCULAR HEMOGLOBIN 30.8 pg (27.0-33.0); MEAN CORPUSCULAR HGB CONC 33.1 g/dl (32.0-36.5); MEAN CORPUSCULAR VOLUME 92.8 fl (80.0-96.0); MONO # 1.3 10^3/uL (0.0-0.8); NEUTROPHILS # 6.1 10^3/uL (1.8-7.7); NEUTROPHILS % 57.6 % (36.0-66.0); PLATELET COUNT, AUTOMATED 232 10^3/uL (150-450); RED CELL DISTRIBUTION WIDTH 15.5 % (11.5-14.5); WHITE BLOOD COUNT 10.5 10^3/uL (4.0-10.0)
[2017-05-27] MEDS ORDERED: LIDOCAINE W/EPINEPHRINE 1% 20ML VIAL SC ONE (01:15)
[2017-05-27 01:16] LABS: CALCIUM LEVEL 8.8 MG/DL (8.8-10.2); CREATININE FOR GFR 1.82 MG/DL (0.70-1.30); GLOMERULAR FILTRATION RATE 38.4 (>42); POTASSIUM SERUM 3.4 MEQ/L (3.5-5.1)
[2017-05-27 01:43] VITALS: BP 163/77
--- NOTE | 2017-05-27 02:00 | REPUSA ---
CLINICAL HISTORY: Trauma. TECHNIQUE: Multiple axial CT images were obtained through the brain without IV contrast material. COMMENTS: There is normal configuration of sella turcica. There are no intra or extra-axial collections. There is no mass effect or midline shift. There is no evidence of hematoma formation. No hydrocephalus is p resent. The ventricles are symmetrical. No abnormal calcifications are present. There is diffuse age-appropriate cerebellar and cerebral atrophy with proportionally dilated ventricl es and cortical sulci. There are bilateral periventricular and subcortical white matter hypolucencies compatible with mild c hronic microvascular disease. Otherwise, no significant focal abnormalities are seen either in the posterior fossa or supratentoria l compartment. IMPRESSION: 1. Age-appropriate cerebellar and cerebral atrophy. 2. Mild chronic microvascular disease. 3. No evidence of acute intracranial pathology. Thank you for your kind referral of this patient.
== END 2017-05-27 02:32 | disposition home or self-care (01) ==
LOC: M ED 00:35
DX: S01.01XA Laceration without foreign body of scalp, initial encounter (principal); X58.XXXA Exposure to other specified factors, initial encounter; Y92.410 Unspecified street and highway as the place of occurrence of the external cause; Y93.89 Activity, other specified; Y99.8 Other external cause status; F10.220 Alcohol dependence with intoxication, uncomplicated; I10 Essential (primary) hypertension; J44.9 Chronic obstructive pulmonary disease, unspecified; E78.5 Hyperlipidemia, unspecified; I48.91 Unspecified atrial fibrillation; Z79.899 Other long term (current) drug therapy; Z79.82 Long term (current) use of aspirin; F17.210 Nicotine dependence, cigarettes, uncomplicated
CPT/HCPCS: 12013; 36415; 70450; 80048; 85025; 90471; 90714; 99284; G0480

== ENCOUNTER 2017-06-23 13:19 | Inpatient (IN) | payer MEDICARE ==
[~2017-06-23] VITALS: Ht 165.1 cm; Wt 45.4 kg
[2017-06-23] MEDS ORDERED: NS 1,000 ML IV ONE (15:15)
--- NOTE | 2017-06-23 16:48 | REP ---
ACUTE ABDOMINAL SERIES: 06/23/2017. Clinical history: Nausea, vomiting, cough. Comparison: CT chest 11/03/2016, CT abdomen pelvis 01/20/2017, AP chest 10/09/2016. Findings: PA chest: A single lead AICD pacer with the lead terminating in the right ventricle. Lungs are hyperinflated and show no pleural effusion, lateral pleural thickening, apical scarring or pneumothorax. No infiltrate or mass. Heart is not enlarged. The aorta is calcified at the arch, mildly tortuous without aneurysm. Airway intact. Dextroconvex curvature of the spine. No free air under the diaphragm. Degenerative changes of the shoulder, right greater than left. Flat upright abdomen: Gas pattern nonspecific with scattered stool and gas in the colon without dilatation. A few scattered loops of small bowel with air but no dilatation. No significant air-fluid levels, mass or free air. I see no abnormal calcifications over the renal fossae or expected course of the ureter. There are degenerative changes in the spine, greatest in the lower lumbar facets at L4-5 and L5-S1 with marginal osteophytes throughout. Mild bilateral hip arthritis. Impression: 1. Nonspecific gas pattern without obstruction, mass or free air. 2. No abnormal calcifications over the renal collecting system or expected course of the ureters. 3. PA chest with single lead AICD pacer without acute finding. Stable. Signed by Taco Duarte MD 06/23/2017 05:52 P
[2017-06-23 18:06] LABS: BASO % 0.1 % (0.0-1.0); EOS # 0.1 10^3/uL (0.0-0.50); EOS % 0.8 % (0.0-3.0); IMMATURE GRANULOCYTE % 0.3 % (0-0); LYMPH % 11.1 % (24.0-44.0); MEAN CORPUSCULAR HEMOGLOBIN 30.7 pg (27.0-33.0); MEAN CORPUSCULAR HGB CONC 32.7 g/dl (32.0-36.5); MEAN CORPUSCULAR VOLUME 93.9 fl (80.0-96.0); MONO # 0.5 10^3/uL (0.0-0.8); MONO % 5.9 % (0.0-5.0); NEUTROPHILS # 7.1 10^3/uL (1.8-7.7); NEUTROPHILS % 81.8 % (36.0-66.0); PLATELET COUNT, AUTOMATED 206 10^3/uL (150-450); RED CELL DISTRIBUTION WIDTH 14.6 % (11.5-14.5); WHITE BLOOD COUNT 8.7 10^3/uL (4.0-10.0)
[2017-06-23 18:20] LABS: ALBUMIN 3.9 GM/DL (3.2-5.2); ALBUMIN/GLOBULIN RATIO 1.26 (1.00-1.93); BILIRUBIN,TOTAL 0.5 MG/DL (0.2-1.0); CALCIUM LEVEL 9.1 MG/DL (8.8-10.2); CREATININE FOR GFR 2.28 MG/DL (0.70-1.30); GLOMERULAR FILTRATION RATE 29.6 (>42); POTASSIUM SERUM 4.2 MEQ/L (3.5-5.1)
[2017-06-23 20:36] LABS: CALCIUM LEVEL 8.4 MG/DL (8.8-10.2); CREATININE FOR GFR 2.15 MG/DL (0.70-1.30); GLOMERULAR FILTRATION RATE 31.7 (>42); POTASSIUM SERUM 4.5 MEQ/L (3.5-5.1)
[2017-06-23] MEDS ORDERED: IPRASOL4 INH (21:16)
[2017-06-23] MEDS ORDERED: METO25TA4 PO (21:16)
[2017-06-23] MEDS ORDERED: ACETAMINOPHEN TAB 650MG DOSE (2X325MG) PO PRN (22:15)
[2017-06-23 22:54] VITALS: BP 158/77
[2017-06-23] MEDS: AMIODARONE 200 MG TAB (PACERONE) PO SCH (23:30)
[2017-06-23] MEDS: NS 1,000 ML IV SCH (23:30)
[2017-06-23] MEDS: ONDANSETRON 4MG/2ML VIAL (J2405) IV PRN (23:48)
[2017-06-24 06:00] VITALS: BP 106/58
[2017-06-24] MEDS: HEPARIN SOD (PORCINE) 5000 UNITS/ML VIAL SC SCH ×3 (06:40→23:16)
[2017-06-24 07:03] LABS: MEAN CORPUSCULAR HEMOGLOBIN 31.3 pg (27.0-33.0); MEAN CORPUSCULAR HGB CONC 33.4 g/dl (32.0-36.5); MEAN CORPUSCULAR VOLUME 93.7 fl (80.0-96.0); PLATELET COUNT, AUTOMATED 151 10^3/uL (150-450); RED CELL DISTRIBUTION WIDTH 14.6 % (11.5-14.5); WHITE BLOOD COUNT 8.1 10^3/uL (4.0-10.0)
--- NOTE | 2017-06-24 07:21 | ECGEPIP ---
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
[2017-06-24 07:28] LABS: CREATININE FOR GFR 1.97 MG/DL (0.70-1.30); GLOMERULAR FILTRATION RATE 35.1 (>42); POTASSIUM SERUM 3.5 MEQ/L (3.5-5.1)
--- NOTE | 2017-06-24 07:47 | HPEPDOC ---
General Date of Admission Jun 23, 2017 at 22:08 Primary Care Physician: Huseyin Other Providers Nba Clark Attending Physician: Ziyad Farrar MD Chief Complaint The patient is a 77-year-old male admitted with a reason for visit of Acute Kidney Failure. Source: Patient History of Present Illness 77m h/o htn, hyperlipidemia, chronic afib, VT s/p aicd placement (09/30), CAD s/ p HI x2 and PCI with stent who presented to ED with complaints of generalized malaise and n/v x1 day. Patient reports that he has been experiencing increasing malaise, associated with decreased appetite and exercise tolerance. He also reports mild anorexia w/wt loss for that last month. Pt had recently been admitted this past Sep with pna and michelle with his cre going from 1 to 1.5. Upon d/c, though his renal fxn had returned to normal. However over last 1month , the patient reports that he has been experiencing decreased appetite, generalized malaise with decreased ET and po intake and concomitant wt loss. He denied fever/chills, LE swelling, drenching sweats, productive cough or changes in urination. The patient did report nausea and vomiting on the day of admit, but nothing significant prior to that. Home Medications Scheduled (Aspirin) 81 Mg Chw, 81 MG PO DAILY, (Reported) Amiodarone HCl (Amiodarone HCl) 200 Mg Tab, 200 MG PO BID, (Reported) Amlodipine Besylate (Amlodipine Besylate) 5 Mg Tab, 5 MG PO DAILY, (Reported) Atorvastatin Calcium (Atorvastatin Calcium) 40 Mg Tab, 40 MG PO DAILY, (Reported ) Cholecalciferol (Vitamin D3) 1,000 Unit Tab, 1,000 UNIT PO DAILY, (Reported) Metoprolol Tartrate (Metoprolol Tartrate) 25 Mg Tab, 25 MG PO DAILY, (Reported) Ramipril (Ramipril) 5 Mg Cap, 5 MG PO DAILY, (Reported) Scheduled PRN Albuterol/Ipratropium (Ipratropium [place]/Albut 0.5-2.5 (3) mg/3Ml) 1 Joy Joy, 1 JOY INH Q6H PRN for SHORTNESS OF BREATH, (Reported) Allergies Coded Allergies: No Known Allergies (Unverified , 09/18/16) Past Medical History Medical History 1. V-tach s/p AICD 2. Chronic persistent afib 3. CAD s/p HI x2 and PCI w/stent 4. HTN 5. Hyperlipidemia 6. CKD III 7. Prostate Ca 8. Diverticulosis 9. Tubulovillous adenoma of colon Surgical History 1. AICD 2. PCI w/stents 3. Prostate surgery 4. Colonoscopy Family History Significant Family History: No pertinent family hx Social History * Smoker: current smoker (1ppd) Drugs: denies Recent Travel/Sick Contacts: Denies: Recent travel Psychosocial History: No pertinent psych hx Review of Symptoms Constitutional: Reports: Malaise, Fatigue, Denies: Chills, Fever, Night Sweats Eyes: Denies: Pain, Vision change ENT: Denies: Head Aches, Dysphagia Skin: Denies: Rash Pulmonary: Denies: Dyspnea, Cough Cardiovascular: Denies: Chest Pain, Palpitations, Lt Headedness Gastrointestinal: Denies: Nausea, Vomiting, Abdominal Pain Genitourinary: Denies: Frequency, Incontinence Hematologic: Denies: Bruising, Bleeding Excessively Endocrine: Denies: Polydipsia, Polyphagia, Polyuria Musculoskeletal: Denies: Back Pain, Joint Pain Neurological: Denies: Weakness, Numbness, Change in speech, Confusion Psych: Reports: Mood Normal Physical Examination General Exam: Positive: Alert, Cooperative, No Acute Distress Eye Exam: Positive: Conjunctiva & lids normal, Negative: Sclera icteric ENT Exam: Positive: Atraumatic, Mucous membr. moist/pink Neck Exam: Positive: Supple, Negative: JVD, thyromegaly Chest Exam: Positive: Clear to auscultation, Normal air movement, Negative: Rales, Rhonchi, Wheezing Heart Exam: Positive: Rate Normal, Irregular Rhythm, Normal S1, Normal S2, Negative: Gallops, Murmurs, Rubs Abdomen Exam: Positive: Normal bowel sounds, Soft, Negative: Tenderness Extremity Exam: Negative: Clubbing, Cyanosis, Edema Skin Exam: Positive: Nl turgor and temperature, Negative: Rash Neuro Exam: Positive: Normal Gait, Normal Speech, Cranial Nerves 3-12 NL Psych Exam: Positive: Mental status NL, Mood NL, Oriented x 3 Vital Signs Vital Signs Date Time Temp Pulse Resp B/P (MAP) Pulse Ox O2 Delivery O2 Flow Rate FiO2 06/23/17 22:54 98.0 48 16 158/77 (104) 97 Room Air Laboratory Data Labs 24H Laboratory Tests 2 06/23/17 16:24: Immature Granulocyte % (Auto) 0.3H, White Blood Count 8.7, Red Blood Count 4.46 , Hemoglobin 13.7L, Hematocrit 41.9L, Mean Corpuscular Volume 93.9, Mean Corpuscular Hemoglobin 30.7, Mean Corpuscular Hemoglobin Concent 32.7, Red Cell Distribution Width 14.6H, Platelet Count 206, Neutrophils (%) (Auto) 81.8H, Lymphocytes (%) (Auto) 11.1L, Monocytes (%) (Auto) 5.9H, Eosinophils (%) (Auto) 0.8, Basophils (%) (Auto) 0.1, Neutrophils # (Auto) 7.1, Lymphocytes # (Auto) 1.0L, Monocytes # (Auto) 0.5, Eosinophils # (Auto) 0.1, Basophils # (Auto) 0.0, Immature Granulocyte # (Auto) 0.0, Nucleated Red Blood Cells % (auto) 0.0, Anion Gap 12, Glomerular Filtration Rate 29.6L, Blood Urea Nitrogen 33H, Creatinine 2.28H, Sodium Level 141, Potassium Level 4.2, Chloride Level 105, Carbon Dioxide Level 24, Calcium Level 9.1, Aspartate Amino Transf (AST/SGOT) 74H, Alanine Aminotransferase (ALT/SGPT) 82H, Alkaline Phosphatase 108, Total Bilirubin 0.5, Total Protein 7.0, Albumin 3.9, Albumin/Globulin Ratio 1.26, Lipase 166 06/23/17 19:56: Anion Gap 13, Glomerular Filtration Rate 31.7L, Blood Urea Nitrogen 33H, Creatinine 2.15H, Sodium Level 145, Potassium Level 4.5, Chloride Level 109H, Carbon Dioxide Level 23, Calcium Level 8.4L, Total Creatine Kinase 115, Creatine Kinase MB 5.1H, Creatine Kinase MB Relative Index 4.43H, Troponin I 0.04, BR-[id number]-[id number]-Type Natriuretic Peptide 3323H 06/23/17 20:08: Urine Appearance CLEAR, Urine Color YELLOW, Urine pH 5.0, Urine Specific [place] 1.013, Urine Protein NEGATIVE, Urine Glucose (UA) NEGATIVE, Urine Ketones 1+H, Urine Urobilinogen 0.2, Urine Bilirubin NEGATIVE, Urine Leukocyte Esterase NEGATIVE, Urine Blood 1+H, Urine Nitrite NEGATIVE, Urine WBC (Auto) 3, Urine RBC (Auto) 1, Urine Hyaline Casts (Auto) 0, Urine Bacteria (Auto) NEGATIVE , Urine Squamous Epithelial Cells 0, Urine Mucus (Auto) SMALL, Urine Sperm (Auto ) 06/23/17 23:44: Bedside Glucose (Misc Panel) 58L CBC/BMP Laboratory Tests 06/23/17 16:24 Red Blood Count 4.46, Mean Corpuscular Volume 93.9, Mean Corpuscular Hemoglobin 30.7, Mean Corpuscular Hemoglobin Concent 32.7, Red Cell Distribution Width 14.6 H, Neutrophils (%) (Auto) 81.8 H, Lymphocytes (%) (Auto) 11.1 L, Monocytes (%) (Auto) 5.9 H, Eosinophils (%) (Auto) 0.8, Basophils (%) (Auto) 0.1, Neutrophils # (Auto) 7.1, Lymphocytes # (Auto) 1.0 L, Monocytes # (Auto) 0.5, Eosinophils # (Auto) 0.1, Basophils # (Auto) 0.0, Calcium Level 9.1, Aspartate Amino Transf (AST/SGOT) 74 H, Alanine Aminotransferase (ALT/SGPT) 82 H, Alkaline Phosphatase 108, Total Bilirubin 0.5, Total Protein 7.0, Albumin 3.9 06/23/17 19:56 Calcium Level 8.4 L, Total Creatine Kinase 115 Assessment/Plan 77m h/o htn, hyperlipidemia, chronic afib, VT s/p aicd placement (09/30), CAD s/ p HI x2 and PCI with stent who presented to ED with complaints of generalized malaise for last month and n/v x1 day. Problems (1) Acute kidney failure Status: Acute (2) Hyperlipidemia (3) Hypertension (4) AICD (automatic cardioverter/defibrillator) present (5) V-tach Status: Acute Plan / VTE VTE Prophylaxis Ordered?: Yes Plan Plan 1 MICHELLE Patient had an episode of michelle in Sep of this year, although was not as severe. At that time was likely pre-renal in setting of pna and sepsis and resolved after abx and fluid resuscitation. At this time, I would still lean towards a pre-renal etiology due to decreased po intake over last month, although it may have been his progressively worsening renal fxn that lead to his decreased appetite. Will start by holding his ACEI and avoiding other nephrotoxins (ARBs/NSAIDs) Despite the elevated pro-BNP, the patient does not show signs of fluid overload , such as LE edema, JVD and his CXR does not show evidence of vascular congestion/cephalization/Rosalia B lines Continue gentle hydration Check renal sono Check renal lytes, protein and creatinine 2 HTN Continue BB Continue CCB 3 Hyperlipidemia Continue statin 4 chronic PAF Continue asa Continue amio Continue BB 5 VT s/p AICD Continue amio 6 DVT prophylaxis Heparin sq Ziyad Farrar MD Jun 23, 2017 23:53
--- NOTE | 2017-06-24 08:10 | REP ---
Renal ultrasound: Comparison is the CT of the abdomen pelvis dated 01/20/2017. The kidneys are in the low normal size range. The right kidney measures 9.6 x 4.3 x 4.5 cm. The left kidney measures 9.0 x 3.7 x 4.4 cm. Renal cortical echogenicity is normal bilaterally. There is no hydronephrosis, calculus or solid mass on the right on the left. There is a 1.8 cm left renal lower pole cyst, similar to the comparison CT. Impression: Left renal cyst. The kidneys are in the low normal size range bilaterally. Bladder ultrasound: There is occasional floating debris in the bladder. The bladder is otherwise unremarkable. Signed by Renny Woodall MD 06/24/2017 08:02 A
[2017-06-24] MEDS ORDERED: METOPROLOL TART 25 MG TABLET PO SCH (09:00)
[2017-06-24] MEDS: PANTOPRAZOLE 40MG TAB (PROTONIX) PO SCH (09:09)
[2017-06-24] MEDS: NS 1,000 ML IV SCH (09:09)
[2017-06-24] MEDS: amLODIPine 5 MG TAB PO SCH (09:12)
[2017-06-24] MEDS: ATORVASTATIN 20 MG TAB PO SCH (09:12)
[2017-06-24] MEDS: ASPIRIN 81 MG CHEW TABLET PO SCH (09:13)
[2017-06-24] MEDS: VITAMIN D 1,000 INTERNATIONAL UNITS TABLET PO SCH (09:13)
[2017-06-24] MEDS: AMIODARONE 200 MG TAB (PACERONE) PO SCH ×2 (09:18→21:00)
[2017-06-24] MEDS ORDERED: NS 1,000 ML IV SCH (09:45)
--- NOTE | 2017-06-24 10:21 | REP ---
Chest two views HISTORY: Cough Comparison: 06/23/2017 The lungs are hyperinflated. The lungs are clear. The heart is normal in size. The pulmonary vasculature is normal in appearance. The bony structure is intact. There is scoliosis convex to the right. A cardiac pacemaker is present. IMPRESSION: No acute disease. Signed by Miguel Angel Breen MD 06/24/2017 10:11 A
[2017-06-24 14:00] VITALS: BP 131/62
[2017-06-24] MEDS ORDERED: POTASSIUM CHLORIDE 10 MEQ SR TABLET PO ONE (15:15)
--- NOTE | 2017-06-24 15:18 | IPN ---
DATE: 06/24/2017 SUBJECTIVE: The patient is seen and examined in the room today. Per patient, the patient stated he has been having poor oral intake for at least three days. The patient continues to feel malaise. During the encounter, the patient does not demonstrate full orientation. The patient keeps saying we are in 1919. The patient stated he lives with family member; however, he cooks his own meals and he takes care of himself. OBJECTIVE: VITAL SIGNS: Temperature 97.9, pulse 40, respirations 18, blood pressure 106/58, pulse oximetry 93% on room air. GENERAL: No sign of acute distress. The patient is alert and awake, not fully oriented. Knows about being in the hospital, the President's name, but he does not remember the year. He remembered the name of his primary care provider; however, he is not sure if he is seen by other providers. HEENT: Normocephalic, atraumatic. Extraocular motor grossly intact. CARDIOVASCULAR: Positive S1, S2. Bradycardic. LUNGS: Some expiratory crackles. Some minor cough during the examination, but no wheezes appreciated. ABDOMEN: Soft, nontender, nondistended. Bowel sounds present. EXTREMITIES: No edema, no sign of cyanosis. LABORATORY DATA: WBC 8.1, hemoglobin 11.4, hematocrit 34.1, platelet count 151. Sodium is 142, potassium 3.5, chloride 111, carbon dioxide 22, BUN 29, creatinine 1.97, GFR 35.1, fasting glucose is 114. Calcium eight. ASSESSMENT AND PLAN: 1. Acute kidney injury. In December 2016, the patient's renal function were within normal range. However, during the last few healthcare visits in January 2017 and May 2017, the patient demonstrated deterioration of the renal function. When the patient arrived to the emergency room, the patient had creatinine of 2.28 with a glomerular filtration rate (GFR) of 29.6. Information obtained from the history and the clinical presentation, the patient needs support of intravenous (IV) fluid. In the last 24 hours, the patient's renal function has been improving. Continue to monitor. 2. Symptomatic bradycardia. Per documentation, when patient arrived to the emergency room, the patient continued to have a low heart rate. Initially the heart rate was approximately 53 and this morning, the patient had a heart rate of 40s. That may explain why the patient is having increased malaise. The patient will be placed on monitor technician. Followup for routine heart rate check. Metoprolol will also be on hold. 3. History of ventricular tachycardia, on amiodarone, status post automatic implantable cardioverter defibrillator (AICD). 4. History of atrial fibrillation. The patient's electrocardiogram (EKG) was reviewed, and showed sinus rhythm. The patient will be monitored on telemetry. 5. History of myocardial infarction times two, status post cardiac stent. 6. Hypertension. Blood pressure in satisfactory range. 7. History of prostate cancer, status post surgical intervention. 8. History of colonic polyps. 9. Deep venous thrombosis (DVT) prophylaxis on heparin. [facility]
[2017-06-24 18:00] VITALS: BP 148/70
[2017-06-24 22:00] VITALS: BP 134/64
[2017-06-25] VITALS (7 sets, daily range): BP systolic 116–175; BP diastolic 29–77
[2017-06-25] MEDS: HEPARIN SOD (PORCINE) 5000 UNITS/ML VIAL SC SCH ×3 (05:28→21:01)
[2017-06-25 05:52] LABS: MEAN CORPUSCULAR HEMOGLOBIN 30.4 pg (27.0-33.0); MEAN CORPUSCULAR HGB CONC 32.8 g/dl (32.0-36.5); MEAN CORPUSCULAR VOLUME 92.7 fl (80.0-96.0); PLATELET COUNT, AUTOMATED 151 10^3/uL (150-450); RED CELL DISTRIBUTION WIDTH 14.4 % (11.5-14.5); WHITE BLOOD COUNT 6.4 10^3/uL (4.0-10.0)
[2017-06-25 06:14] LABS: CALCIUM LEVEL 7.8 MG/DL (8.8-10.2); CREATININE FOR GFR 1.54 MG/DL (0.70-1.30); GLOMERULAR FILTRATION RATE 46.6 (>42); POTASSIUM SERUM 4.2 MEQ/L (3.5-5.1)
[2017-06-25] MEDS: VITAMIN D 1,000 INTERNATIONAL UNITS TABLET PO SCH (08:17)
[2017-06-25] MEDS: ASPIRIN 81 MG CHEW TABLET PO SCH (08:17)
[2017-06-25] MEDS: ATORVASTATIN 20 MG TAB PO SCH (08:17)
[2017-06-25] MEDS: PANTOPRAZOLE 40MG TAB (PROTONIX) PO SCH (08:18)
[2017-06-25] MEDS: AMIODARONE 200 MG TAB (PACERONE) PO SCH ×2 (08:52→21:01)
[2017-06-25] MEDS: amLODIPine 5 MG TAB PO SCH (08:52)
[2017-06-25] MEDS ORDERED: INFLUENZA VIRUS VACCINE HIGH DOSE 0.5 ML SYRINGE (90662) IM ONE (09:00)
[2017-06-25] MEDS ORDERED: PREVNAR 13 VACCINE SYRINGE (CPT CODE:90670) IM ONE (09:00)
--- NOTE | 2017-06-25 10:36 | IPNPDOC ---
Text Note Date of Service The patient was seen on 06/25/17. NOTE SUBJECTIVE: The patient is seen and examined in the room today. He states he is feeling better. No abdominal pain. No nausea or vomiting. He had ACID placed in [facility] and his crane hooker is Dr. Henderson. He has tried to increase oral intake as tolerated since the improvement of his GI symptoms. OBJECTIVE: VITAL SIGNS: Listed below GENERAL: No sign of acute distress. The patient is alert and awake, not fully oriented. HEENT: Normocephalic, atraumatic. Extraocular motor grossly intact. CARDIOVASCULAR: Positive S1, S2. Bradycardia. LUNGS: Some expiratory crackles. Some minor cough during the examination, but no wheezes appreciated. ABDOMEN: Soft, nontender, nondistended. Bowel sounds present. EXTREMITIES: No edema, no sign of cyanosis. LABORATORY DATA: Listed below ASSESSMENT AND PLAN: 1. Acute kidney injury. In December 2016, the patient's renal function were within normal range. However, during the last few healthcare visits in January 2017 and May 2017, the patient demonstrated deterioration of the renal function. When the patient arrived to the emergency room, the patient had creatinine of 2.28 with a glomerular filtration rate (GFR) of 29.6. Patient had IV fluid support, the patient's renal function has been improving. IV fluid discontinued due to resumption of oral intake. GI symptoms are controlled. 2. Symptomatic bradycardia. Metoprolol will also be on hold in the last 24 hours. Patient continues having average heart rate in low 40s. Will consult cardiology. Patient was seen by crane hooker, Dr. Henderson, in the outpatient setting. Will try to obtain the record. 3. History of ventricular tachycardia, on amiodarone, status post automatic implantable cardioverter defibrillator (AICD). 4. History of atrial fibrillation. The patient's electrocardiogram (EKG) was reviewed, and showed sinus rhythm. The patient will be monitored on telemetry. Continue amiodarone. 5. History of myocardial infarction times two, status post cardiac stent. 6. Hypertension. Blood pressure in satisfactory range. 7. History of prostate cancer, status post surgical intervention. 8. History of colonic polyps. 9. Deep venous thrombosis (DVT) prophylaxis on heparin VS,Fishbone, I+O VS, Fishbone, I+O Laboratory Tests 06/25/17 05:23 Red Blood Count 3.72 L, Mean Corpuscular Volume 92.7, Mean Corpuscular Hemoglobin 30.4, Mean Corpuscular Hemoglobin Concent 32.8, Red Cell Distribution Width 14.4, Calcium Level 7.8 L Vital Signs Date Time Temp Pulse Resp B/P (MAP) Pulse Ox O2 Delivery O2 Flow Rate FiO2 06/25/17 08:52 46 139/67 06/25/17 08:03 Room Air 06/25/17 06:00 97.8 18 94 I&O- Last 24 Hours up to 6 AM 06/26/17 06:00 Output Total 125 ml Balance -125 ml PERMA HILL DO Jun 25, 2017 10:35
--- NOTE | 2017-06-25 13:54 | CR ---
DATE OF CONSULTATION: 06/25/2017 REFERRING PROVIDER: Dr. Carly Fox. PRIMARY BOILER FIREMAN: Dr. Henderson REASON FOR THE CONSULTATION: Abnormal EKG. HISTORY OF PRESENT ILLNESS: 77-year-old gentleman who usually sees Dr. Henderson came to the hospital on 06/24/2017 because of generalized weakness, anorexia associated with weight loss, nausea, vomiting, and a sensation of not feeling well. He was found to have deterioration of his kidney function and admitted for further management and monitoring. He was started on IV fluids and his symptoms are improving as well as his kidney function. Since in the hospital, he was been bradycardic and the beta dandre/metoprolol tartrate was stopped but he continues to be bradycardic. Cardiology consultation was called. When I saw Mr. Tushar Quiros, he was sitting in a chair in his room in no acute distress at rest. He stated that he feels better. He denies any chest pain, palpitations, pedal edema, orthopnea, syncope or near syncope. He has not been falling. He denies any loss of consciousness. He denies bleeding. He has no focal manifestation. He has no cough or hemoptysis. He has not been vomiting since being in the hospital and he does not feel nauseated. He has been eating more since his hospitalization. He has a past medical history positive for coronary artery disease and myocardial infarction with percutaneous transluminal coronary angioplasty (PTCA)/stents, left ventricular systolic dysfunction as per patient, ventricular tachycardia, paroxysmal atrial fibrillation, hypertension, hyperlipidemia. There is no history of diabetes mellitus, thyroid disorders. He does have a history of prostate cancer for which he has had surgery. There is no history of sudden cardiac , CVA, nonvalvular heart disease. Past surgical history is positive for automated implantable cardioverter defibrillator (AICD) implantation about 2 months ago and surgery for prostate cancer. He does have a history of colonoscopy and polypectomy. HOME MEDICATIONS: - aspirin 81 mg by mouth daily - amiodarone 200 mg by mouth twice a day - amlodipine 5 mg by mouth daily - atorvastatin 40 mg by mouth daily - metoprolol tartrate 25 mg by mouth daily - ramipril 5 mg by mouth daily - vitamin D 1000 units by mouth daily CURRENT MEDICATIONS: - amlodipine 5 mg by mouth daily - aspirin 81 mg by mouth daily - atorvastatin 40 mg by mouth daily - vitamin D 1000 units by mouth daily - pantoprazole 40 mg by mouth daily - heparin subcutaneously 5000 units every 8 hours - DuoNeb as needed - Tylenol 650 mg every 4 hours as needed for mild pain or fever - ondansetron 4 mg IV every 6 hours as needed for nausea or vomiting - amiodarone 200 mg by mouth twice a day FAMILY HISTORY: Noncontributory. SOCIAL HISTORY: The patient denies any EtOH abuse but does smoke about one pack per day of cigarettes. He has no know drug allergies. On physical examination, the patient is alert and oriented, in no acute distress at rest. Vital signs this morning revealed a blood pressure of 128/61 with a pulse of 47, respiration rate 19, and his maximum temperature is 97.6 degrees Fahrenheit with an oxygen saturation of 95% on room air. He has a positive fluid balance for 06/24/2017 of about 1.7 liters. Examination of the head is atraumatic, normocephalic. Neck is supple, no jugular venous distention appreciated. The lungs do not reveal any wheezing or crackles. The heart examination reveals normal S1 and S2 without gallops. The PMI is displaced inferiorly and laterally. There is no rub. I could not appreciate any murmurs. Abdomen is unremarkable. Extremities reveal no pedal edema. Neurological examination is negative for focal deficit. LABS: BMP done today reveals a sodium of 143, potassium 4.2, chloride 111, CO2 25, BUN 22, creatinine 1.54, GFR 46.6, fasting glucose 81 and calcium 7.8. On admission the BMP revealed a sodium of 141, potassium 4.2, chloride 105, CO2 24, BUN 33, creatinine 2.28, GFR 29.6, fasting glucose 67 and calcium 9.1. Liver enzymes revealed a total bilirubin of 0.5, AST 74, ALT 82, alkaline phosphatase 108, total protein 7.1, albumin 3.9. Serum lipase was 166. Serum troponin was 1.04. Serum for BNP was 3323. CBC today 06/25/2017 revealed a WBC of 6.4, hemoglobin 11.3, hematocrit 24.5 and platelet 151,000. On admission, hemoglobin and hematocrit were 13.7 and 41.9 respectively. Urinalysis done yesterday was normal except for trace ketones. Abdominal x-ray on admission revealed nonspecific gas pattern without any obstruction or mass or free air. Renal ultrasound done yesterday 06/24/2017 revealed occasional floating debris in the bladder, otherwise unremarkable. There is a left renal cyst. The size of the kidneys were normal. Chest x-ray on 06/24/2017 revealed no acute disease process. Pacemaker/AICD wire artifact noted. Aorta is tortuous/unfolded and there is no cardiomegaly, pleural effusion, or manifestation of heart failure. Electrocardiogram on admission revealed an underlying sinus bradycardia at 43 beats per minute, possible prior inferior wall infarct, complexes in the limb leads, possible prior inferior wall infarct and prolong MA interval at about 200 ms. Thought also to be similar to 10/09/2016. Telemetry slips were reviewed and revealed occasional ventricular pacemaker activities and the underlying rate was about 40 beats per minute. Otherwise, sinus bradycardia noted. No atrial pacemaker activity was noted. IMPRESSION: 1. Sinus bradycardia, asymptomatic. Probably aggravated by the beta dandre and the amiodarone. The beta dandre is now on hold and I will continue the same for now until we check the settings of his AICD. The is not aware of what type of device he has and we can call Dr. Henderson in the morning to have more information. I will continue the amiodarone at the same dose for now until tomorrow when we get more information. He probably would benefit from a lower dose because I have noticed that his LFTs are higher. Base on the information, he will need a small dose of a beta dandre, he stated that he has weak heart muscles and assuming that he underlying cardiomyopathy with left ventricular systolic dysfunction. But on his chest x-ray, there is no cardiomegaly noted. Once again, we should get more information from Dr. Henderson then further recommendations will be given. Once we get all the information, please call the office and we will try to rearrange the setting on his device if needed. 2. History of coronary artery disease. This seems to be stable and we will continue the aspirin and the statin for now. His MI inhibitor is on hold because of his underlying kidney function. Beta dandre also is on hold because of the bradycardia. His pacemaker/AICD, however, seems to be working fine. 3. History of hypertension can be monitored. 4. History of hyperlipidemia, on a statin and he will need to be monitored because of the abnormal LFTs and in the setting of the amiodarone. 5. Acute on chronic kidney disease, improving with IV fluids and off the MI inhibitor. 6. History of ventricular tachycardia, on amiodarone and patient has underlying AICD implant. 7. History of prostate cancer. 8. Anemia. It was a pleasure to participate in the care of Mr. Tushar Quiros for his underlying cardiac condition. I will continue to monitor along with you while in the hospital. Please do not hesitate to call for any questions and to let me know when you get the information from Dr. Henderson's office.
[2017-06-25] MEDS: IPRATROPIUM 0.5MG/ALBUTEROL 2.5MG INH SOL UD 3ML (DUONEB)(J7620) INH PRN (22:09)
[2017-06-26 02:00] VITALS: BP 133/64
[2017-06-26] MEDS: HEPARIN SOD (PORCINE) 5000 UNITS/ML VIAL SC SCH ×3 (05:39→20:51)
[2017-06-26 05:52] LABS: MEAN CORPUSCULAR HEMOGLOBIN 30.9 pg (27.0-33.0); MEAN CORPUSCULAR HGB CONC 33.8 g/dl (32.0-36.5); MEAN CORPUSCULAR VOLUME 91.3 fl (80.0-96.0); PLATELET COUNT, AUTOMATED 156 10^3/uL (150-450); RED CELL DISTRIBUTION WIDTH 14.5 % (11.5-14.5)
[2017-06-26 06:00] VITALS: BP 135/65
[2017-06-26 06:11] LABS: CREATININE FOR GFR 1.3 MG/DL (0.70-1.30); GLOMERULAR FILTRATION RATE 56.7 (>42); POTASSIUM SERUM 3.7 MEQ/L (3.5-5.1)
[2017-06-26] MEDS: PANTOPRAZOLE 40MG TAB (PROTONIX) PO SCH (09:22)
[2017-06-26] MEDS: ASPIRIN 81 MG CHEW TABLET PO SCH (09:22)
[2017-06-26] MEDS: ATORVASTATIN 20 MG TAB PO SCH (09:22)
[2017-06-26] MEDS: VITAMIN D 1,000 INTERNATIONAL UNITS TABLET PO SCH (09:26)
[2017-06-26] MEDS: amLODIPine 5 MG TAB PO SCH (09:26)
[2017-06-26] MEDS: AMIODARONE 200 MG TAB (PACERONE) PO SCH ×2 (09:27→20:51)
[2017-06-26 10:00] VITALS: BP 122/60
--- NOTE | 2017-06-26 13:27 | IPNPDOC ---
Text Note Date of Service The patient was seen on 06/26/17. NOTE SUBJECTIVE: The patient is seen and examined in the room today. Patient states his oral intake is improving and he is feeling better than before. Denies any shortness of chest pain. Denies any lightheadedness or dizziness. OBJECTIVE: VITAL SIGNS: Listed below. GENERAL: No sign of acute distress. The patient is alert and awake, not fully oriented, sign of dementia. HEENT: Normocephalic, atraumatic. Extraocular motor grossly intact. CARDIOVASCULAR: Positive S1, S2. Bradycardic. LUNGS: Some expiratory crackles. Some minor cough during the examination, but no wheezes appreciated. ABDOMEN: Soft, nontender, nondistended. Bowel sounds present. EXTREMITIES: No edema, no sign of cyanosis. LABORATORY DATA: Listed below. ASSESSMENT AND PLAN: 1. Acute kidney injury. In December 2016, the patient's renal function were within normal range. However, during the last few healthcare visits in January 2017 and May 2017, the patient demonstrated deterioration of the renal function. Initially patient started on IV hydration. IV fluid discontinued when patient is resuming better oral intake. Renal function continue to improve. 2. Bradycardia. Patient has persistent bradycardia despite the discontinuation of metoprolol. Average heart rate is around 40-50. Continue monitoring the patient on cardiac telemetry. Cardiology has been consulted. Outpatient pocket closer is Dr. Henderson. 3. History of ventricular tachycardia, on amiodarone, status post automatic implantable cardioverter defibrillator (AICD). 4. History of atrial fibrillation. The patient's electrocardiogram (EKG) was reviewed, and showed sinus rhythm. Continues amiodarone. Metoprolol is on hold. The patient will be monitored on telemetry. 5. History of myocardial infarction times two, status post cardiac stent. 6. Hypertension. Blood pressure in satisfactory range. 7. History of prostate cancer, status post surgical intervention. 8. History of colonic polyps. 9. Deep venous thrombosis (DVT) prophylaxis on heparin. VS,Fishbone, I+O VS, Fishbone, I+O Laboratory Tests 06/26/17 05:35 Red Blood Count 3.79 L, Mean Corpuscular Volume 91.3, Mean Corpuscular Hemoglobin 30.9, Mean Corpuscular Hemoglobin Concent 33.8, Red Cell Distribution Width 14.5, Calcium Level 8.0 L Vital Signs Date Time Temp Pulse Resp B/P (MAP) Pulse Ox O2 Delivery O2 Flow Rate FiO2 06/26/17 10:00 97.7 47 18 122/60 (80) 96 Room Air I&O- Last 24 Hours up to 6 AM 06/27/17 06:00 Intake Total 240 ml Output Total 300 ml Balance -60 ml PREMA HILL DO Jun 26, 2017 13:27
[2017-06-26 14:00] VITALS: BP 142/67
[2017-06-26 18:00] VITALS: BP 129/60
[2017-06-26 22:00] VITALS: BP 116/64
[2017-06-27 02:00] VITALS: BP 120/60
[2017-06-27] MEDS: IPRATROPIUM 0.5MG/ALBUTEROL 2.5MG INH SOL UD 3ML (DUONEB)(J7620) INH PRN (03:34)
[2017-06-27] MEDS: HEPARIN SOD (PORCINE) 5000 UNITS/ML VIAL SC SCH ×3 (05:42→21:54)
[2017-06-27 06:00] VITALS: BP 121/67
[2017-06-27 06:35] LABS: MEAN CORPUSCULAR HEMOGLOBIN 30.8 pg (27.0-33.0); MEAN CORPUSCULAR HGB CONC 33.6 g/dl (32.0-36.5); MEAN CORPUSCULAR VOLUME 91.6 fl (80.0-96.0); PLATELET COUNT, AUTOMATED 145 10^3/uL (150-450); RED CELL DISTRIBUTION WIDTH 14.2 % (11.5-14.5)
[2017-06-27 07:02] LABS: ANION GAP 6 MEQ/L (8-16); BLOOD UREA NITROGEN 18 MG/DL (7-18); CALCIUM LEVEL 8.2 MG/DL (8.8-10.2); CARBON DIOXIDE LEVEL 29 MEQ/L (21-32); CHLORIDE LEVEL 106 MEQ/L (98-107); CREATININE FOR GFR 1.22 MG/DL (0.70-1.30); GLOMERULAR FILTRATION RATE > 60.0 (>42); GLUCOSE, FASTING 86 MG/DL (83-110); POTASSIUM SERUM 3.8 MEQ/L (3.5-5.1); SODIUM LEVEL 141 MEQ/L (136-145)
[2017-06-27 10:00] VITALS: BP 96/50
[2017-06-27] MEDS: PANTOPRAZOLE 40MG TAB (PROTONIX) PO SCH (10:00)
[2017-06-27] MEDS: ASPIRIN 81 MG CHEW TABLET PO SCH (10:01)
[2017-06-27] MEDS: VITAMIN D 1,000 INTERNATIONAL UNITS TABLET PO SCH (10:01)
[2017-06-27] MEDS: ATORVASTATIN 20 MG TAB PO SCH (10:01)
--- NOTE | 2017-06-27 10:47 | IPNPDOC ---
Text Note Date of Service The patient was seen on 06/27/17. NOTE SUBJECTIVE: The patient is seen and examined in the room today. Patient states his oral intake is improving and he is feeling better than before. Denies any shortness of chest pain. Denies any lightheadedness or dizziness. Does admit to binge drinking. Says drinks about twice a month . would drink 10 to 12 hard drinks at a time. Did say that did not drink for about 3 weeks prior to this admission. OBJECTIVE: VITAL SIGNS: Listed below. GENERAL: No sign of acute distress. The patient is alert and awake, not fully oriented, sign of dementia. HEENT: Normocephalic, atraumatic. Extraocular motor grossly intact. CARDIOVASCULAR: Positive S1, S2. Bradycardic. LUNGS: Some expiratory crackles. Some minor cough during the examination, but no wheezes appreciated. ABDOMEN: Soft, nontender, nondistended. Bowel sounds present. EXTREMITIES: No edema, no sign of cyanosis. LABORATORY DATA: Listed below. ASSESSMENT AND PLAN: 1. Acute kidney injury on CKD 3. : prerenal probably due to dehydration with poor oral intake, alcohol abuse on the background of ACEI. Possibly baseline creatinine around 1.4 to 1.5. Renal US no abnormalities. 2. Bradycardia. Patient has persistent bradycardia despite the discontinuation of metoprolol however seems to be a little better today. Average heart rate is around 45 to 55. Continue monitoring the patient on cardiac telemetry.Dr Ohara has evaluated the patient will follow his recommendation. Outpatient box sealing machine operator is Dr. Henderson. Requested records from his office regarding the AICD. 3. History of Persistent ventricular tachycardia, on amiodarone, status post automatic implantable cardioverter defibrillator (AICD) in sep 2016. 4. Paroxysmal atrial fibrillation. The patient's electrocardiogram (EKG) was reviewed, and showed sinus rhythm. Continues amiodarone. Metoprolol is on hold. The patient will be monitored on telemetry. 5. CAD with History of myocardial infarction times two, status post cardiac stent. 6. Hypertension. Blood pressure in satisfactory range. 7. History of prostate cancer, status post surgical intervention. 8. History of colonic polyps. 9. Deep venous thrombosis (DVT) prophylaxis on heparin. 10. History of binge alcohol use : counselled about quitting drinking, LFTs were mildly elevated on admission could be due to amiodarone and also alcohol. VS,Fishbone, I+O VS, Fishbone, I+O Laboratory Tests 06/27/17 05:56 Red Blood Count 3.80 L, Mean Corpuscular Volume 91.6, Mean Corpuscular Hemoglobin 30.8, Mean Corpuscular Hemoglobin Concent 33.6, Red Cell Distribution Width 14.2, Calcium Level 8.2 L Vital Signs Date Time Temp Pulse Resp B/P (MAP) Pulse Ox O2 Delivery O2 Flow Rate FiO2 06/27/17 06:00 98.3 51 16 121/67 (85) 97 Room Air I&O- Last 24 Hours up to 6 AM 06/28/17 06:00 Intake Total 0 ml Output Total 100 ml Balance -100 ml JOAQUÍN TRAVIS MD Jun 27, 2017 10:47
[2017-06-27] MEDS: amLODIPine 5 MG TAB PO SCH (10:57)
[2017-06-27] MEDS: AMIODARONE 200 MG TAB (PACERONE) PO SCH ×2 (10:58→21:00)
[2017-06-27 14:00] VITALS: BP 100/53
[2017-06-27 18:00] VITALS: BP 131/62
[2017-06-27 22:00] VITALS: BP 140/62
[2017-06-28] MEDS: HEPARIN SOD (PORCINE) 5000 UNITS/ML VIAL SC SCH ×3 (05:19→22:28)
[2017-06-28 05:56] LABS: MEAN CORPUSCULAR HEMOGLOBIN 30.6 pg (27.0-33.0); MEAN CORPUSCULAR HGB CONC 33.5 g/dl (32.0-36.5); MEAN CORPUSCULAR VOLUME 91.2 fl (80.0-96.0); PLATELET COUNT, AUTOMATED 155 10^3/uL (150-450); RED CELL DISTRIBUTION WIDTH 14.1 % (11.5-14.5); WHITE BLOOD COUNT 6.4 10^3/uL (4.0-10.0)
[2017-06-28 06:00] VITALS: BP 137/67
[2017-06-28 06:13] LABS: ANION GAP 5 MEQ/L (8-16); BLOOD UREA NITROGEN 16 MG/DL (7-18); CALCIUM LEVEL 8.1 MG/DL (8.8-10.2); CARBON DIOXIDE LEVEL 29 MEQ/L (21-32); CHLORIDE LEVEL 106 MEQ/L (98-107); CREATININE FOR GFR 1.16 MG/DL (0.70-1.30); GLOMERULAR FILTRATION RATE > 60.0 (>42); GLUCOSE, FASTING 74 MG/DL (83-110); POTASSIUM SERUM 3.4 MEQ/L (3.5-5.1); SODIUM LEVEL 140 MEQ/L (136-145)
[2017-06-28] MEDS ORDERED: POTASSIUM CHLORIDE 10 MEQ SR TABLET PO ONE (07:15)
[2017-06-28] MEDS ORDERED: IPRATROPIUM 0.02% SOLN 0.5MG/2.5 ML NEB NEB ONE (07:15)
[2017-06-28] MEDS ORDERED: ALBUTEROL SULFATE 2.5 MG/0.5 ML INH NEB SOLN NEB ONE (07:15)
[2017-06-28] MEDS: AMIODARONE 200 MG TAB (PACERONE) PO SCH ×2 (09:00→20:19)
[2017-06-28 09:23] VITALS: BP 139/65
--- NOTE | 2017-06-28 10:14 | IPNPDOC ---
Text Note Date of Service The patient was seen on 06/28/17. NOTE SUBJECTIVE: The patient is seen and examined in the room today. He complains of SOb and chronic cough. Also says has lost a lot of weight this year. Patient states his oral intake is improving and he is feeling better than before. Denies any shortness of chest pain. Denies any lightheadedness or dizziness. Does admit to binge drinking. Says drinks about twice a month . would drink 10 to 12 hard drinks at a time. Did say that did not drink for about 3 weeks prior to this admission. Still very weak and difficulty in getting out of bed. OBJECTIVE: VITAL SIGNS: Listed below. GENERAL: No sign of acute distress. The patient is alert and awake, not fully oriented, sign of dementia. HEENT: Normocephalic, atraumatic. Extraocular motor grossly intact. CARDIOVASCULAR: Positive S1, S2. Bradycardic. LUNGS: Some expiratory crackles. Some minor cough during the examination, but no wheezes appreciated. ABDOMEN: Soft, nontender, nondistended. Bowel sounds present. EXTREMITIES: No edema, no sign of cyanosis. LABORATORY DATA: Listed below. ASSESSMENT AND PLAN: 1. Acute kidney injury on CKD 3. : prerenal probably due to dehydration with poor oral intake, alcohol abuse on the background of ACEI. Possibly baseline creatinine around 1.4 to 1.5. Renal US no abnormalities. 2. Bradycardia. Patient has persistent bradycardia despite the discontinuation of metoprolol however seems to be a little better today. Average heart rate is around 45 to 55. Continue monitoring the patient on cardiac telemetry.Dr Ohara has evaluated the patient will follow his recommendation. Outpatient private duty lpn is Dr. Henderson. 3. History of Persistent ventricular tachycardia, on amiodarone, status post automatic implantable cardioverter defibrillator (AICD) in sep 2016. 4. Paroxysmal atrial fibrillation. The patient's electrocardiogram (EKG) was reviewed, and showed sinus rhythm. Continues amiodarone. Metoprolol is on hold. The patient will be monitored on telemetry. 5. CAD with History of myocardial infarction times two, status post cardiac stent. 6. Hypertension. Blood pressure in satisfactory range. 7. History of prostate cancer, status post surgical intervention. 8. History of colonic polyps. 9. Deep venous thrombosis (DVT) prophylaxis on heparin. 10. History of binge alcohol use : counselled about quitting drinking, LFTs were mildly elevated on admission could be due to amiodarone and also alcohol. 11. Emphysema ,COPD and chronic bronchitis. : This may be the cause of his SOB also. patient is a chronic smoker uses about 1 pack in 2 days with chronic cough will need PFTs as outpatient. will start on duonebs and symbicort and albuterol prn. 12. Severe Protein calorie malnutrition : possibly due to chronic lung and heart disease. unsure whether alcohol may also be playing a part or not. 13. Lung nodules and Right upper lobe opacity noted since 2014 being followed as an outpatient. VS,Fishbone, I+O VS, Fishbone, I+O Laboratory Tests 06/28/17 05:29 Red Blood Count 3.76 L, Mean Corpuscular Volume 91.2, Mean Corpuscular Hemoglobin 30.6, Mean Corpuscular Hemoglobin Concent 33.5, Red Cell Distribution Width 14.1, Calcium Level 8.1 L Vital Signs Date Time Temp Pulse Resp B/P (MAP) Pulse Ox O2 Delivery O2 Flow Rate FiO2 06/28/17 09:28 Room Air 06/28/17 09:23 98.6 58 16 139/65 (89) 96 JOAQUÍN TRAVIS MD Jun 28, 2017 10:14
[2017-06-28] MEDS ORDERED: ALBUTEROL SULFATE 2.5 MG/0.5 ML INH NEB SOLN NEB PRN (10:15)
[2017-06-28] MEDS: ASPIRIN 81 MG CHEW TABLET PO SCH (10:27)
[2017-06-28] MEDS: PANTOPRAZOLE 40MG TAB (PROTONIX) PO SCH (10:27)
[2017-06-28] MEDS: ATORVASTATIN 20 MG TAB PO SCH (10:29)
[2017-06-28] MEDS: amLODIPine 5 MG TAB PO SCH (10:30)
[2017-06-28] MEDS: VITAMIN D 1,000 INTERNATIONAL UNITS TABLET PO SCH (10:30)
[2017-06-28] MEDS: SYMBICORT 80/4.5MCG INHALER 6GM INH SCH ×2 (11:38→20:23)
[2017-06-28 12:00] VITALS: BP 144/65
[2017-06-28 14:00] VITALS: BP 102/52
[2017-06-28] MEDS: IPRATROPIUM 0.5MG/ALBUTEROL 2.5MG INH SOL UD 3ML (DUONEB)(J7620) NEB SCH ×2 (15:12→23:09)
[2017-06-28 18:00] VITALS: BP 127/62
[2017-06-28 20:00] VITALS: BP 115/60
--- NOTE | 2017-06-28 22:28 | IPN ---
DATE: 06/28/2017 Mr. Tushar Quiros was seen this evening. He was in supine in bed in no acute distress at rest. He stated he feels fine and was supposed to go back today, but waiting for physical therapy. He denied any chest pain, shortness of breath, palpitation, dizziness. He was initially seen on 06/25/2017, because he was found to be bradycardic and there was a concern about the pacemaker. Upon reviewing the when wearing the lithium strips, there were pacemaker beats at about 40 beats per minute. We have the information from his device from Dr. Henderson's office and seen that the lowest heart rate is set up at 40 beats per minute. Otherwise, device/pacemaker has been working good. On physical examination, patient is alert and oriented, in no acute distress at rest, and his vital signs reveal a blood pressure of 127/62, with a pulse of 60, respirations 18, and his maximum temperature is 98.1 degrees Fahrenheit with an oxygen saturation of 98% on room air. LABORATORY DATA: CBC revealed WBC of 6.4, hemoglobin 11.5, hematocrit 34.3, and platelets 155,000. BMP revealed sodium of 140, potassium 3.4, chloride 106, CO2 29, BUN 16, creatinine 1.16, GFR more than 60, fasting glucose 74, and calcium 8.1. Mr. Tushar Quiros has been stable from a cardiac point of view and it seems that his renal function has improved significantly. He has mild hypokalemia and this is being addressed. His medications were reviewed and I will continue the same for now. With continue with the amiodarone and upon discharge, he will make an appointment with his primary aircraft engine dismantler, Dr. Henderson for further cardiac evaluation. He might benefit from a higher heart rate. This was discussed with the patient and hospitalist will be informed. Please do not hesitate to call if any questions.
[2017-06-29 02:00] VITALS: BP 132/66
[2017-06-29] MEDS: HEPARIN SOD (PORCINE) 5000 UNITS/ML VIAL SC SCH ×4 (05:16→22:18)
[2017-06-29 06:00] VITALS: BP 136/65
[2017-06-29 06:14] LABS: MEAN CORPUSCULAR HEMOGLOBIN 31.2 pg (27.0-33.0); MEAN CORPUSCULAR VOLUME 91.8 fl (80.0-96.0); PLATELET COUNT, AUTOMATED 152 10^3/uL (150-450); RED CELL DISTRIBUTION WIDTH 14.5 % (11.5-14.5); WHITE BLOOD COUNT 6.4 10^3/uL (4.0-10.0)
[2017-06-29 06:29] LABS: ANION GAP 5 MEQ/L (8-16); BLOOD UREA NITROGEN 15 MG/DL (7-18); CALCIUM LEVEL 8.2 MG/DL (8.8-10.2); CARBON DIOXIDE LEVEL 28 MEQ/L (21-32); CHLORIDE LEVEL 106 MEQ/L (98-107); CREATININE FOR GFR 1.22 MG/DL (0.70-1.30); GLOMERULAR FILTRATION RATE > 60.0 (>42); GLUCOSE, FASTING 80 MG/DL (83-110); MAGNESIUM LEVEL 1.6 MG/DL (1.8-2.4); POTASSIUM SERUM 3.7 MEQ/L (3.5-5.1); SODIUM LEVEL 139 MEQ/L (136-145)
[2017-06-29] MEDS: IPRATROPIUM 0.5MG/ALBUTEROL 2.5MG INH SOL UD 3ML (DUONEB)(J7620) NEB SCH ×3 (08:00→23:23)
[2017-06-29] MEDS: MAG SULF 1GM/100ML (MAG RUN) 1 GM in APPROPRIATE DILUENT 1 EA IV SCH ×2 (08:18→09:59)
[2017-06-29] MEDS: SYMBICORT 80/4.5MCG INHALER 6GM INH SCH ×2 (08:55→20:04)
[2017-06-29] MEDS ORDERED: AMIODARONE 200 MG TAB (PACERONE) PO SCH (09:00)
[2017-06-29] MEDS ORDERED: AMIODARONE 100MG TABLET (PACERONE) PO SCH (09:00)
[2017-06-29 09:30] VITALS: BP 132/58
--- NOTE | 2017-06-29 10:09 | IPNPDOC ---
Text Note Date of Service The patient was seen on 06/29/17. NOTE SUBJECTIVE: Patient does not have any complaints this am , denies any SOB or Chest pain , says eating better, said walked with PT yesterday which is much more than what he was able to do at home. PT feels he is very unstable while walking and is not safe to be discharged at this time. OBJECTIVE: VITAL SIGNS: Listed below. GENERAL: No sign of acute distress. The patient is alert and awake, not fully oriented, sign of dementia. HEENT: Normocephalic, atraumatic. Extraocular motor grossly intact. CARDIOVASCULAR: Positive S1, S2. Bradycardic. LUNGS: Some expiratory crackles. Some minor cough during the examination, but no wheezes appreciated. ABDOMEN: Soft, nontender, nondistended. Bowel sounds present. EXTREMITIES: No edema, no sign of cyanosis. LABORATORY DATA: Listed below. ASSESSMENT AND PLAN: 1. Acute kidney injury on CKD 3. : prerenal probably due to dehydration with poor oral intake, alcohol abuse on the background of ACEI. Possibly baseline creatinine around 1.4 to 1.5. Renal US no abnormalities. 2. Bradycardia. continues to have heart rate 45 to 55. his betablocker has been discontinued, amiodarone dosage reduced to once a day still with pulse in the 40s. will reduce dose of amiodarone to 100 mg/ day. AICD data was reviewed by Dr Ohara , the rate is set at 40. so it is working fine . Though he may benefit from higher pulse rate as indicated by Dr ohara which can be adjusted as outpatient by his own timber setter Dr Henderson. 3. History of Persistent ventricular tachycardia, on amiodarone, status post automatic implantable cardioverter defibrillator (AICD) in sep 2016. 4. Paroxysmal atrial fibrillation. The patient's electrocardiogram (EKG) was reviewed, and showed sinus rhythm. Continues amiodarone. Metoprolol is on hold. The patient will be monitored on telemetry. 5. CAD with History of myocardial infarction times two, status post cardiac stent. 6. Hypertension. Blood pressure in satisfactory range. 7. History of prostate cancer, status post surgical intervention. 8. History of colonic polyps. 9. Deep venous thrombosis (DVT) prophylaxis on heparin. 10. History of binge alcohol use : counselled about quitting drinking, LFTs were mildly elevated on admission could be due to amiodarone and also alcohol. 11. Emphysema ,COPD and chronic bronchitis. : This may be the cause of his SOB also. patient is a chronic smoker uses about 1 pack in 2 days with chronic cough will need PFTs as outpatient. will start on duonebs and symbicort and albuterol prn. 12. Severe Protein calorie malnutrition : possibly due to chronic lung and heart disease. unsure whether alcohol may also be playing a part or not. 13. Lung nodules and Right upper lobe opacity noted since 2014 being followed as an outpatient. VS,Fishbone, I+O VS, Fishbone, I+O Laboratory Tests 06/29/17 05:30 Red Blood Count 3.53 L, Mean Corpuscular Volume 91.8, Mean Corpuscular Hemoglobin 31.2, Mean Corpuscular Hemoglobin Concent 34.0, Red Cell Distribution Width 14.5, Calcium Level 8.2 L Vital Signs Date Time Temp Pulse Resp B/P (MAP) Pulse Ox O2 Delivery O2 Flow Rate FiO2 06/29/17 06:00 98.0 51 18 136/65 (88) 97 Room Air I&O- Last 24 Hours up to 6 AM 06/30/17 06:00 Intake Total 100 ml Balance 100 ml JOAQUÍN TRAVIS MD Jun 29, 2017 10:09
[2017-06-29] MEDS: VITAMIN D 1,000 INTERNATIONAL UNITS TABLET PO SCH (11:09)
[2017-06-29] MEDS: ATORVASTATIN 20 MG TAB PO SCH (11:09)
[2017-06-29] MEDS: PANTOPRAZOLE 40MG TAB (PROTONIX) PO SCH (11:10)
[2017-06-29] MEDS: ASPIRIN 81 MG CHEW TABLET PO SCH (11:11)
[2017-06-29] MEDS: amLODIPine 5 MG TAB PO SCH (11:11)
[2017-06-29 13:30] VITALS: BP 132/58
[2017-06-29 18:00] VITALS: BP 129/61
[2017-06-29 21:00] VITALS: BP 121/58
[2017-06-30 02:50] VITALS: BP 144/83
[2017-06-30 05:50] VITALS: BP 138/63
[2017-06-30 06:11] LABS: MEAN CORPUSCULAR HEMOGLOBIN 30.7 pg (27.0-33.0); MEAN CORPUSCULAR HGB CONC 33.4 g/dl (32.0-36.5); MEAN CORPUSCULAR VOLUME 91.7 fl (80.0-96.0); PLATELET COUNT, AUTOMATED 169 10^3/uL (150-450); RED CELL DISTRIBUTION WIDTH 14.3 % (11.5-14.5); WHITE BLOOD COUNT 11.9 10^3/uL (4.0-10.0)
[2017-06-30 06:14] LABS: CALCIUM LEVEL 8.6 MG/DL (8.8-10.2); CREATININE FOR GFR 1.28 MG/DL (0.70-1.30); GLOMERULAR FILTRATION RATE 57.7 (>42); POTASSIUM SERUM 3.8 MEQ/L (3.5-5.1)
[2017-06-30] MEDS: HEPARIN SOD (PORCINE) 5000 UNITS/ML VIAL SC SCH ×3 (06:16→21:57)
[2017-06-30] MEDS: SYMBICORT 80/4.5MCG INHALER 6GM INH SCH ×2 (07:12→19:33)
[2017-06-30] MEDS: IPRATROPIUM 0.5MG/ALBUTEROL 2.5MG INH SOL UD 3ML (DUONEB)(J7620) NEB SCH ×3 (08:00→23:10)
[2017-06-30] MEDS: ASPIRIN 81 MG CHEW TABLET PO SCH (08:42)
[2017-06-30] MEDS: PANTOPRAZOLE 40MG TAB (PROTONIX) PO SCH (08:42)
[2017-06-30] MEDS: VITAMIN D 1,000 INTERNATIONAL UNITS TABLET PO SCH (08:42)
[2017-06-30] MEDS: ATORVASTATIN 20 MG TAB PO SCH (08:42)
[2017-06-30] MEDS: amLODIPine 5 MG TAB PO SCH (08:43)
[2017-06-30] MEDS: AMIODARONE 100MG TABLET (PACERONE) PO SCH (08:43)
--- NOTE | 2017-06-30 08:54 | IPNPDOC ---
Text Note Date of Service The patient was seen on 06/30/17. NOTE SUBJECTIVE: Patient does not have any complaints this am , denies any SOB or Chest pain , says eating better. He did have low grade temp this morning with T max of 100.2 but patient did not complain of any discomfort. OBJECTIVE: VITAL SIGNS: Listed below. GENERAL: No sign of acute distress. The patient is alert and awake, not fully oriented, sign of dementia. HEENT: Normocephalic, atraumatic. Extraocular motor grossly intact. CARDIOVASCULAR: Positive S1, S2. Bradycardic. LUNGS: Some expiratory crackles. Some minor cough during the examination, but no wheezes appreciated. ABDOMEN: Soft, nontender, nondistended. Bowel sounds present. EXTREMITIES: No edema, no sign of cyanosis. LABORATORY DATA: Listed below. ASSESSMENT AND PLAN: 1. Acute kidney injury on CKD 3. : prerenal probably due to dehydration with poor oral intake, alcohol abuse on the background of ACEI. Possibly baseline creatinine around 1.4 to 1.5. Renal US no abnormalities. 2. Bradycardia. continues to have heart rate 45 to 55. his betablocker has been discontinued, amiodarone dosage reduced to once a day . AICD data was reviewed by Dr Ohara , the rate is set at 40. so it is working fine . Though he may benefit from higher pulse rate as indicated by Dr Ohara . He will be increasing the rate today . 3. History of Persistent ventricular tachycardia, on amiodarone, status post automatic implantable cardioverter defibrillator (AICD) in sep 2016. 4. Paroxysmal atrial fibrillation. The patient's electrocardiogram (EKG) was reviewed, and showed sinus rhythm. Continues amiodarone. Metoprolol is on hold. The patient will be monitored on telemetry. 5. CAD with History of myocardial infarction times two, status post cardiac stent. 6. Hypertension. Blood pressure in satisfactory range. 7. History of prostate cancer, status post surgical intervention. 8. History of colonic polyps. 9. Deep venous thrombosis (DVT) prophylaxis on heparin. 10. History of binge alcohol use : counselled about quitting drinking, LFTs were mildly elevated on admission could be due to amiodarone and also alcohol. 11. Emphysema ,COPD and chronic bronchitis. : This may be the cause of his SOB also. patient is a chronic smoker uses about 1 pack in 2 days with chronic cough will need PFTs as outpatient. will start on duonebs and symbicort and albuterol prn. 12. Severe Protein calorie malnutrition : possibly due to chronic lung and heart disease. unsure whether alcohol may also be playing a part or not. 13. Lung nodules and Right upper lobe opacity noted since 2014 being followed as an outpatient. 14. New leucocytosis with low grade fever will continue to monitor. No signs of infection at this time if fever increases will send UA, get cxr and blood cultures. VS,Fishbone, I+O VS, Fishbone, I+O Laboratory Tests 06/30/17 05:43 Red Blood Count 3.75 L, Mean Corpuscular Volume 91.7, Mean Corpuscular Hemoglobin 30.7, Mean Corpuscular Hemoglobin Concent 33.4, Red Cell Distribution Width 14.3, Calcium Level 8.6 L Vital Signs Date Time Temp Pulse Resp B/P (MAP) Pulse Ox O2 Delivery O2 Flow Rate FiO2 06/30/17 08:43 67 130/64 06/30/17 06:05 100.2 06/30/17 05:50 18 91 Room Air RAY,JOAQUÍN IBANEZ Jun 30, 2017 08:54
[2017-06-30 10:00] VITALS: BP 124/59
[2017-06-30 14:00] VITALS: BP 110/55
[2017-06-30 18:00] VITALS: BP 107/55
[2017-06-30 21:00] VITALS: BP 108/55
[2017-07-01 01:45] VITALS: BP 124/63
[2017-07-01 05:35] VITALS: BP 138/63
[2017-07-01 05:52] LABS: MEAN CORPUSCULAR HEMOGLOBIN 31.2 pg (27.0-33.0); MEAN CORPUSCULAR HGB CONC 33.8 g/dl (32.0-36.5); MEAN CORPUSCULAR VOLUME 92.4 fl (80.0-96.0); PLATELET COUNT, AUTOMATED 162 10^3/uL (150-450); RED CELL DISTRIBUTION WIDTH 14.5 % (11.5-14.5); WHITE BLOOD COUNT 8.6 10^3/uL (4.0-10.0)
[2017-07-01 06:05] LABS: ANION GAP 9 MEQ/L (8-16); BLOOD UREA NITROGEN 22 MG/DL (7-18); CALCIUM LEVEL 8.3 MG/DL (8.8-10.2); CARBON DIOXIDE LEVEL 27 MEQ/L (21-32); CHLORIDE LEVEL 104 MEQ/L (98-107); CREATININE FOR GFR 1.08 MG/DL (0.70-1.30); GLOMERULAR FILTRATION RATE > 60.0 (>42); GLUCOSE, FASTING 74 MG/DL (83-110); MAGNESIUM LEVEL 2.1 MG/DL (1.8-2.4); POTASSIUM SERUM 3.8 MEQ/L (3.5-5.1); SODIUM LEVEL 140 MEQ/L (136-145)
[2017-07-01] MEDS: HEPARIN SOD (PORCINE) 5000 UNITS/ML VIAL SC SCH ×3 (06:21→21:30)
[2017-07-01] MEDS: IPRATROPIUM 0.5MG/ALBUTEROL 2.5MG INH SOL UD 3ML (DUONEB)(J7620) NEB SCH ×3 (07:58→19:13)
[2017-07-01] MEDS: SYMBICORT 80/4.5MCG INHALER 6GM INH SCH ×2 (07:58→19:13)
--- NOTE | 2017-07-01 09:13 | IPNPDOC ---
Text Note Date of Service The patient was seen on 07/01/17. NOTE SUBJECTIVE: Patient does not have any complaints this am , denies any SOB or Chest pain , says eating better. He did have low grade temp this morning with T max of 100.2 but patient did not complain of any discomfort. HAS NOT BEEN CLEARED BY pt YET. OBJECTIVE: VITAL SIGNS: Listed below. GENERAL: No sign of acute distress. The patient is alert and awake, not fully oriented, sign of dementia. HEENT: Normocephalic, atraumatic. Extraocular motor grossly intact. CARDIOVASCULAR: Positive S1, S2. Bradycardic. LUNGS: Some expiratory crackles. Some minor cough during the examination, but no wheezes appreciated. ABDOMEN: Soft, nontender, nondistended. Bowel sounds present. EXTREMITIES: No edema, no sign of cyanosis. LABORATORY DATA: Listed below. ASSESSMENT AND PLAN: 1. Acute kidney injury on CKD 3. : prerenal probably due to dehydration with poor oral intake, alcohol abuse on the background of ACEI. Possibly baseline creatinine around 1.4 to 1.5. Renal US no abnormalities. 2. Bradycardia. continues to have heart rate 45 to 55. his betablocker has been discontinued, amiodarone dosage reduced to once a day . AICD data was reviewed by Dr Ohara , the rate is set at 40. so it is working fine . Though he may benefit from higher pulse rate as indicated by Dr Ohara . He will be increasing the rate today . 3. History of Persistent ventricular tachycardia, on amiodarone, status post automatic implantable cardioverter defibrillator (AICD) in sep 2016. 4. Paroxysmal atrial fibrillation. The patient's electrocardiogram (EKG) was reviewed, and showed sinus rhythm. Continues amiodarone. Metoprolol is on hold. The patient will be monitored on telemetry. 5. CAD with History of myocardial infarction times two, status post cardiac stent. 6. Hypertension. Blood pressure in satisfactory range. 7. History of prostate cancer, status post surgical intervention. 8. History of colonic polyps. 9. Deep venous thrombosis (DVT) prophylaxis on heparin. 10. History of binge alcohol use : counselled about quitting drinking, LFTs were mildly elevated on admission could be due to amiodarone and also alcohol. 11. Emphysema ,COPD and chronic bronchitis. : This may be the cause of his SOB also. patient is a chronic smoker uses about 1 pack in 2 days with chronic cough will need PFTs as outpatient. will start on duonebs and symbicort and albuterol prn. 12. Severe Protein calorie malnutrition : possibly due to chronic lung and heart disease. unsure whether alcohol may also be playing a part or not. 13. Lung nodules and Right upper lobe opacity noted since 2014 being followed as an outpatient. 14. New leucocytosis with low grade fever RESOLVED. No signs of infection at this time if fever increases will send UA, get cxr and blood cultures. 15. Muscle deconditioning and unstable gait: Working with PT will need to go home with home services. VS,Fishbone, I+O VS, Fishbone, I+O Laboratory Tests 07/01/17 05:29 Red Blood Count 3.43 L, Mean Corpuscular Volume 92.4, Mean Corpuscular Hemoglobin 31.2, Mean Corpuscular Hemoglobin Concent 33.8, Red Cell Distribution Width 14.5, Calcium Level 8.3 L Vital Signs Date Time Temp Pulse Resp B/P (MAP) Pulse Ox O2 Delivery O2 Flow Rate FiO2 07/01/17 05:35 98.6 58 16 138/63 (88) 94 Room Air I&O- Last 24 Hours up to 6 AM 07/02/17 05:59 Intake Total 0 ml Output Total 100 ml Balance -100 ml JOAQUÍN TRAVIS MD Jul 01, 2017 09:13
[2017-07-01 10:00] VITALS: BP 110/55
[2017-07-01] MEDS: VITAMIN D 1,000 INTERNATIONAL UNITS TABLET PO SCH (10:04)
[2017-07-01] MEDS: ASPIRIN 81 MG CHEW TABLET PO SCH (10:04)
[2017-07-01] MEDS: PANTOPRAZOLE 40MG TAB (PROTONIX) PO SCH (10:04)
[2017-07-01] MEDS: amLODIPine 5 MG TAB PO SCH (10:05)
[2017-07-01] MEDS: AMIODARONE 100MG TABLET (PACERONE) PO SCH (10:05)
[2017-07-01] MEDS: ATORVASTATIN 20 MG TAB PO SCH (10:05)
[2017-07-01 14:00] VITALS: BP 113/56
[2017-07-01 18:00] VITALS: BP 108/58
[2017-07-01 22:00] VITALS: BP 140/67
[2017-07-02] VITALS (7 sets, daily range): BP systolic 96–140; BP diastolic 51–67
[2017-07-02] MEDS: HEPARIN SOD (PORCINE) 5000 UNITS/ML VIAL SC SCH ×3 (05:04→21:13)
[2017-07-02] MEDS: SYMBICORT 80/4.5MCG INHALER 6GM INH SCH ×2 (07:45→20:20)
[2017-07-02] MEDS: IPRATROPIUM 0.5MG/ALBUTEROL 2.5MG INH SOL UD 3ML (DUONEB)(J7620) NEB SCH ×3 (07:46→20:20)
[2017-07-02] MEDS: ONDANSETRON 4MG/2ML VIAL (J2405) IV PRN (08:26)
[2017-07-02] MEDS: PANTOPRAZOLE 40MG TAB (PROTONIX) PO SCH (08:33)
[2017-07-02] MEDS: VITAMIN D 1,000 INTERNATIONAL UNITS TABLET PO SCH (08:33)
[2017-07-02] MEDS: AMIODARONE 100MG TABLET (PACERONE) PO SCH (08:33)
[2017-07-02] MEDS: ATORVASTATIN 20 MG TAB PO SCH (08:34)
[2017-07-02] MEDS: ASPIRIN 81 MG CHEW TABLET PO SCH (08:34)
[2017-07-02] MEDS: amLODIPine 5 MG TAB PO SCH (08:35)
--- NOTE | 2017-07-02 09:53 | IPNPDOC ---
Text Note Date of Service The patient was seen on 07/02/17. NOTE SUBJECTIVE: Patient does not have any complaints this am , denies any SOB or Chest pain , says eating better. feeling stronger and walking around the room by himself. PT continues to work with him. wants to go home. OBJECTIVE: VITAL SIGNS: Listed below. GENERAL: No sign of acute distress. The patient is alert, awake and oriented now. HEENT: Normocephalic, atraumatic. Extraocular motor grossly intact. CARDIOVASCULAR: Positive S1, S2. Bradycardic. LUNGS: Some expiratory crackles. Some minor cough during the examination, but no wheezes appreciated. ABDOMEN: Soft, nontender, nondistended. Bowel sounds present. EXTREMITIES: No edema, no sign of cyanosis. there is wasting of small muscles of hand. LABORATORY DATA: Listed below. ASSESSMENT AND PLAN: 1. Acute kidney injury on CKD 3. : prerenal probably due to dehydration with poor oral intake, alcohol abuse on the background of ACEI. Possibly baseline creatinine around 1.4 to 1.5. Renal US no abnormalities. 2. Bradycardia: resolved after stopping the betablocker and reducing the amiodarone dosage. AICD rate did need to be increased. Back up rate remains at 40. Patient's pulse in 50s and 60s. 3. History of Persistent ventricular tachycardia, on amiodarone, status post automatic implantable cardioverter defibrillator (AICD) in sep 2016. 4. Paroxysmal atrial fibrillation. The patient's electrocardiogram (EKG) was reviewed, and showed sinus rhythm. Continues amiodarone. Metoprolol is on hold. The patient will be monitored on telemetry. 5. CAD with History of myocardial infarction times two, status post cardiac stent. 6. Hypertension. Blood pressure in satisfactory range. 7. History of prostate cancer, status post surgical intervention. 8. History of colonic polyps. 9. Deep venous thrombosis (DVT) prophylaxis on heparin. 10. History of binge alcohol use : counselled about quitting drinking, LFTs were mildly elevated on admission could be due to amiodarone and also alcohol. 11. Emphysema ,COPD and chronic bronchitis. : This may be the cause of his SOB also. patient is a chronic smoker uses about 1 pack in 2 days with chronic cough will need PFTs as outpatient. will start on duonebs and symbicort and albuterol prn. 12. Severe Protein calorie malnutrition : possibly due to chronic lung and heart disease. unsure whether alcohol may also be playing a part or not. 13. Lung nodules and Right upper lobe opacity noted since 2014 being followed as an outpatient. 14. Leucocytosis with low grade fever RESOLVED. No signs of infection 15. Muscle deconditioning and unstable gait: Working with PT will need to go home with home services. VS,Fishbone, I+O VS, Fishbone, I+O Vital Signs Date Time Temp Pulse Resp B/P (MAP) Pulse Ox O2 Delivery O2 Flow Rate FiO2 07/02/17 08:35 68 131/69 07/02/17 06:00 98.1 19 93 Room Air JOAQUÍN TRAVIS MD Jul 02, 2017 09:53
[2017-07-03 02:00] VITALS: BP 104/58
[2017-07-03] MEDS: HEPARIN SOD (PORCINE) 5000 UNITS/ML VIAL SC SCH (05:21)
[2017-07-03 06:00] VITALS: BP 132/62
[2017-07-03] MEDS: IPRATROPIUM 0.5MG/ALBUTEROL 2.5MG INH SOL UD 3ML (DUONEB)(J7620) NEB SCH (08:00)
[2017-07-03] MEDS: SYMBICORT 80/4.5MCG INHALER 6GM INH SCH (08:25)
[2017-07-03 09:15] VITALS: BP 132/62
[2017-07-03] MEDS: AMIODARONE 100MG TABLET (PACERONE) PO SCH (09:15)
[2017-07-03] MEDS: PANTOPRAZOLE 40MG TAB (PROTONIX) PO SCH (09:15)
[2017-07-03] MEDS: amLODIPine 5 MG TAB PO SCH (09:15)
[2017-07-03] MEDS: ASPIRIN 81 MG CHEW TABLET PO SCH (09:15)
[2017-07-03] MEDS: ATORVASTATIN 20 MG TAB PO SCH (09:15)
[2017-07-03] MEDS: VITAMIN D 1,000 INTERNATIONAL UNITS TABLET PO SCH (09:15)
[2017-07-03 10:00] VITALS: BP 129/61
[2017-07-03] MEDS ORDERED: AMIO200T37 PO (10:42)
[2017-07-03] MEDS ORDERED: BREO1INH3 INH (10:42)
[2017-07-03] MEDS ORDERED: SYMB80INH INH (11:46)
[2017-07-03] MEDS ORDERED: FLUT11IN INH (12:38)
[2017-07-03] MEDS ORDERED: ANOR1AER IN (12:38)
[2017-07-03 14:00] VITALS: BP 106/60
--- NOTE | 2017-07-04 13:12 | DSES ---
DATE OF ADMISSION: 06/23/2017 DATE OF DISCHARGE: 07/03/2017 PRIMARY CARE PROVIDER: Dr. Nba Clark TECHNICIAN ASSISTANT: Dr. Henderson DISCHARGE DIAGNOSES: 1. Sinus bradycardia, improved after starting beta dandre and reducing amiodarone dosage. 2. Acute kidney injury on chronic kidney disease stage III, resolved. 3. Severe generalized muscle deconditioning and unstable gait. 4. History of persistent ventricular tachycardia, status post AICD. 5. Paroxysmal atrial fibrillation. 6. Coronary artery disease with history of myocardial infarction, status post stent. 7. Hypertension. At present, blood pressure is low so antihypertensive has been stopped. 8. History of prostate cancer, status post surgery in the past. 9. History of chronic obstructive pulmonary disease (COPD) and emphysema with chronic bronchitis. 10. Severe protein calorie malnutrition. 11. Lung nodules and right upper lobe opacity present since 2014, being followed as an outpatient. 12. History of binge alcohol use. 13. Scoliosis present. 14. 6 mm lung nodule in the right lower lobe, which is also unchanged from February 2015, being followed as an outpatient. 15. Right apex ground glass opacity measuring 3.5 cm in diameter, being followed from February 2015 and without any change. DISCHARGE MEDICATIONS: - amiodarone 200 mg by mouth daily - albuterol ipratropium nebulizer solution one every 6 hours as needed for shortness of breath - amlodipine 5 mg by mouth daily - aspirin 81 mg by mouth daily - atorvastatin 40 mg by mouth daily - cholecalciferol 1000 units by mouth daily - ramipril 5 mg by mouth daily HOSPITAL COURSE: This is a 77-year-old male who presented to the hospital with increasing malaise, decreased appetite, decreased exercise tolerance, loss of weight, and anorexia. The patient was found to have acute renal failure, which was thought to be related to prerenal issues with poor intake in the background of being on MI inhibitors. Intermittent alcohol abuse. Renal ultrasound did not show any abnormalities. The patient's renal failure resolved with hydration. The patient was also noted to be bradycardic to 40s. The patient's metoprolol was stopped and amiodarone dosage reduced to once a day and with that his pulse improved to mostly in the 50s and 60s. The patient was seen by Dr. Ohara in the hospital and AICD records from Dr. Henderson's office were reviewed by him. No changes were made in the AICD setting. During the hospitalization, the patient's shortness of breath had worsened and the patient was felt to have mild exacerbation of COPD. The patient was started on regular DuoNeb, as well as budesonide and formoterol nebulizer solution. With that, the patient improved greatly. The patient was also seen by physical therapy (PT) during the hospitalization and had several treatments. On the day of discharge, the patient's breathing was at baseline. The patient did not have any complaints. He was evaluated by physical therapy (PT) and was felt to be able to go home with home services activated. The patient also noted to have right lower lobe 6 mm lung nodule and right apical ground glass opacity, which had been present since 2015 and are being followed as an outpatient. I had prescribed Symbicort for discharge and unfortunately he had a copay of $300, so we changed to Advair, which also had a copay of $270, which the patient stated that he will not able to afford. I did try other MDIs, including Anoro, Breo, Flovent, and all of the medications have very high copays and the patient said that he would be unable to afford and so unfortunately we could not prescribe him any long-acting beta2 agonist or steroids for discharge. His home medication of DuoNeb nebulizer solution was continued. PHYSICAL EXAMINATION: VITAL SIGNS: Temperature 97.2, pulse 58, respiratory rate 18, blood pressure 106/60, pulse oximetry 95% on room air. GENERAL: The patient is awake, alert, oriented times three, sitting up in a chair in no acute distress. HEENT: Normocephalic, atraumatic. Moist mucous membranes. Anicteric eyes. CHEST: Bilateral coarse breath sounds and some crackles. CARDIOVASCULAR: S1, S2 regular. No rub, murmur or gallop. ABDOMEN: Soft, nontender. Bowel sounds present. EXTREMITIES: No edema. LABORATORY DATA: WBC 8.6, hemoglobin 10.7, platelets 162. Sodium 140, potassium 3.8, chloride 104, bicarbonate 27, BUN 22, creatinine 1.08, glucose 74, calcium 8.3, magnesium 2.1. Respiratory viral panel negative. DISPOSITION: The patient is discharged home in stable condition. Discharge with home services. DISCHARGE INSTRUCTIONS: Patient to followup with primary medical doctor in 1 week. Patient to followup with Dr. Henderson in 2 weeks. Diet as tolerated. Activity as tolerated.
== END 2017-07-03 14:50 | disposition home health service (06) | DRG 682 ==
LOC: M ED 13:19 → M ED INP 22:08 → M MSPAV 22:52
PROVIDERS: ATTEND Internal Medicine Nephrology
DX: N17.9 Acute kidney failure, unspecified (principal); E43 Unspecified severe protein-calorie malnutrition; I12.9 Hypertensive chronic kidney disease with stage 1 through stage 4 chronic kidney disease, or unspecified chronic kidney disease; R00.1 Bradycardia, unspecified; F17.210 Nicotine dependence, cigarettes, uncomplicated; E78.5 Hyperlipidemia, unspecified; R91.8 Other nonspecific abnormal finding of lung field; J44.9 Chronic obstructive pulmonary disease, unspecified; N18.3 Chronic kidney disease, stage 3 (moderate); I48.2 Chronic atrial fibrillation; I25.10 Atherosclerotic heart disease of native coronary artery without angina pectoris; I25.2 Old myocardial infarction; Z95.810 Presence of automatic (implantable) cardiac defibrillator; Z79.82 Long term (current) use of aspirin; Z79.899 Other long term (current) drug therapy; Z85.46 Personal history of malignant neoplasm of prostate

== ENCOUNTER → 2017-07-21 | Outpatient (CLI) | payer MEDICARE ==
[~2017-07-21] MED LIST changes: +AMIO200T37 PO; +ANOR1AER IN; +BREO1INH3 INH; +FLUT11IN INH; +GASTROGRAFIN SOLUTION 30ML (Q9963) As Ordered ONE; +IPRASOL4 INH; +METO25TA4 PO; +SYMB80INH INH
--- NOTE | 2017-07-21 17:45 | REP ---
CT of the chest without IV contrast: Comparison is made to multiple prior studies dated 2014. The most recent prior study is not seen X 05/03/2017 with IV contrast. There is a 3.5 cm ground-glass density in the apex of the right upper lobe, unchanged from all prior studies dating to 02/26/2015, therefore likely benign. Half There is a 6 ml nodule in the anterior segment of the right lower lobe, unchanged from 02/26/2015, therefore likely benign. No There are no other lung masses or nodules. There is a focal zone of discoid atelectasis in the left lower lobe as a change from 01/20/2017. There is a focal zone of discoid atelectasis in the right lower lobe as a change from 01/20/2017. There are no pleural effusions. Lung alejandra otherwise clear. The unenhanced thoracic aorta is unremarkable except for occasional calcified atheroma. There is a pacemaker. This is unchanged. Cardiac size is normal. Impression: There is a ground-glass density in the apex of the right lung. There is a 6 mm nodule in the right lower lobe. Both of these lesions are unchanged from 02/26/2015, therefore likely benign. There is discoid atelectasis in the lower lobe of each lung. Otherwise, negative CT study of the chest. Signed by Renny Woodall MD 07/21/2017 05:36 P
--- NOTE | 2017-07-21 17:50 | REP ---
CT of the abdomen pelvis without IV contrast. Bowel contrast is utilized. Comparison 01/20/2017. The hepatic parenchyma is homogeneous. The gallbladder is unremarkable. The pancreas and spleen are normal size. There are calcified splenic granulomas. This is unchanged. The adrenals are unremarkable. There are renal cortical cysts, better appreciated on the comparison study with IV contrast. These are unchanged. The unenhanced abdominal aorta is unremarkable except for occasional calcified atheroma. There is no bowel distension or obstruction. The mesentery is unremarkable. Pelvis: There is no adenopathy or ascites. The bladder is unremarkable. The pelvic bowel loops are unremarkable. There are no lytic, blastic or destructive skeletal changes. There is degenerative disc disease in the lumbar spine L4-5 five S1. Impression: Renal cysts, better visualized on the prior study. Splenic granulomas. Otherwise, negative CT of the abdomen pelvis. Signed by Renny Woodall MD 07/21/2017 05:41 P
== END ==
LOC: M RAD 14:17
PROVIDERS: ATTEND Family Medicine
DX: R91.1 Solitary pulmonary nodule (principal); N28.1 Cyst of kidney, acquired
CPT/HCPCS: 71250; 74176; Q9963

== ENCOUNTER → 2017-08-11 | Outpatient (CLI) | payer MEDICARE ==
[2017-08-11 17:42] LABS: CREATININE FOR GFR 1.52 MG/DL (0.70-1.30); GLOMERULAR FILTRATION RATE 47.3 (>42)
== END ==
LOC: M LAB 16:38
DX: Z98.890 Other specified postprocedural states (principal)
CPT/HCPCS: 82565

== ENCOUNTER → 2017-08-15 | Outpatient (REF) | payer MEDICARE ==
[2017-08-15 18:29] LABS: FERRITIN 544 NG/ML (26-388); IRON (FE) 90 UG/DL (65-175); PERCENT SATURATION 34.6 % (19.7-50.0); TOTAL IRON BINDING CAPACITY 260 UG/DL (250-450)
[2017-08-15 18:32] LABS: FOLATE 7.2 NG/ML; VITAMIN B12 LEVEL 376 PG/ML
[2017-08-17 15:03] LABS: FREE T4 1.43 NG/DL (0.76-1.46)
== END ==
LOC: M LAB REF 17:24
DX: D64.9 Anemia, unspecified (principal)
CPT/HCPCS: 82746

== ENCOUNTER → 2017-08-21 | Outpatient (CLI) | payer MEDICARE ==
[2017-08-21 13:22] LABS: ALBUMIN 3.7 GM/DL (3.2-5.2); ALBUMIN/GLOBULIN RATIO 1.23 (1.00-1.93); ALKALINE PHOSPHATASE 136 U/L (45-117); ALT/SGPT 35 U/L (12-78); ANION GAP 8 MEQ/L (8-16); AST/SGOT 28 U/L (7-37); BILIRUBIN,TOTAL 0.3 MG/DL (0.2-1.0); BLOOD UREA NITROGEN 24 MG/DL (7-18); CALCIUM LEVEL 8.7 MG/DL (8.8-10.2); CARBON DIOXIDE LEVEL 28 MEQ/L (21-32); CHLORIDE LEVEL 108 MEQ/L (98-107); CREATININE FOR GFR 1.31 MG/DL (0.70-1.30); FERRITIN 542 NG/ML (26-388); GLOMERULAR FILTRATION RATE 56.2 (>42); GLUCOSE, FASTING 92 MG/DL (83-110); POTASSIUM SERUM 4.1 MEQ/L (3.5-5.1); SODIUM LEVEL 144 MEQ/L (136-145); TOTAL PROTEIN 6.7 GM/DL (6.4-8.2)
[2017-08-21 13:30] LABS: HEPATITIS B SURFACE ANTIGEN NEGATIVE (NEGATIVE)
[2017-08-21 13:57] LABS: HEPATITIS C VIRUS ABY INDEX 0.1 INDEX (<0.8)
[2017-08-21 13:58] LABS: HEPATITIS B CORE ANTIBODY IGM NEGATIVE (NEGATIVE); HIV 1&2 SCREEN CENTAUR NEGATIVE (NEGATIVE)
[2017-08-21 13:59] LABS: HEPATITIS A ANTIBODY IGM NEGATIVE (NEGATIVE)
[2017-08-22 14:12] LABS: ALPHA 1 ANTITRYPSIN 181 mg/dL (90-200)
== END ==
LOC: M LAB 11:48
DX: R94.5 Abnormal results of liver function studies (principal)
CPT/HCPCS: 80053

== ENCOUNTER 2018-05-30 13:39 | Inpatient (IN) | payer MEDICARE ==
[2018-05-30] MEDS: LEVALBUTEROL 1.25 MG/0.5 ML CONCENTRATE NEB NEB (14:43)
[2018-05-30 14:47] LABS: VENOUS BASE EXCESS -4.1 (-2.0-2.0); VENOUS HCO3 23.4 MEQ/L (23.0-27.0); VENOUS O2 SATURATION 48.4 % (60.0-80.0); VENOUS PARTIAL PRESSURE CO2 51.9 mmHg (38.0-50.0); VENOUS PARTIAL PRESSURE O2 31.2 mmHg (30.0-50.0); VENOUS PH 7.271 UNITS (7.330-7.430); VENOUS TOTAL CO2 24.9 MEQ/L (24.0-28.0)
[2018-05-30] MEDS: dexameTHASONE 20 MG/5 ML VIAL (J1100) IV (14:49)
[2018-05-30 14:50] LABS: BASO % 0.2 % (0.0-1.0); EOS # 0.1 10^3/uL (0.0-0.50); EOS % 0.7 % (0.0-3.0); HEMATOCRIT 41.4 % (42.0-52.0); HEMOGLOBIN 13.5 g/dl (13.5-17.5); IMMATURE GRANULOCYTE % 0.2 % (0-3.0); LYMPH # 0.9 10^3/uL (1.5-4.5); LYMPH % 11.3 % (24.0-44.0); MEAN CORPUSCULAR HEMOGLOBIN 31.3 pg (27.0-33.0); MEAN CORPUSCULAR HGB CONC 32.6 g/dl (32.0-36.5); MEAN CORPUSCULAR VOLUME 96.1 fl (80.0-96.0); MONO # 0.5 10^3/uL (0.0-0.8); MONO % 6.5 % (0.0-5.0); NEUTROPHILS # 6.7 10^3/uL (1.8-7.7); NEUTROPHILS % 81.1 % (36.0-66.0); PLATELET COUNT, AUTOMATED 137 10^3/uL (150-450); RED BLOOD COUNT 4.31 10^6/uL (4.30-6.10); RED CELL DISTRIBUTION WIDTH 14.3 % (11.5-14.5); WHITE BLOOD COUNT 8.3 10^3/uL (4.0-10.0)
[2018-05-30 15:02] LABS: INR 1.11; PROTHROMBIN TIME 14.4 SECONDS (12.1-14.4)
[2018-05-30 15:21] LABS: ALBUMIN 3.8 GM/DL (3.2-5.2); ALBUMIN/GLOBULIN RATIO 1.27 (1.00-1.93); ALKALINE PHOSPHATASE 135 U/L (45-117); ALT/SGPT 28 U/L (12-78); ANION GAP 6 MEQ/L (8-16); AST/SGOT 17 U/L (7-37); BILIRUBIN,DIRECT 0.2 MG/DL (0.0-0.2); BILIRUBIN,TOTAL 0.7 MG/DL (0.2-1.0); BLOOD UREA NITROGEN 19 MG/DL (7-18); CALCIUM LEVEL 8.8 MG/DL (8.8-10.2); CARBON DIOXIDE LEVEL 28 MEQ/L (21-32); CHLORIDE LEVEL 110 MEQ/L (98-107); CPK CREATINE PHOSPHOKINASE 196 U/L (39-308); CREATININE FOR GFR 1.36 MG/DL (0.70-1.30); GLOMERULAR FILTRATION RATE 53.7 (>35); GLUCOSE, FASTING 81 MG/DL (70-100); NT-PRO BNP 9769 PG/ML (<450); POTASSIUM SERUM 4.1 MEQ/L (3.5-5.1); SODIUM LEVEL 144 MEQ/L (136-145); TOTAL PROTEIN 6.8 GM/DL (6.4-8.2); TROPONIN I < 0.02 NG/ML (< 0.10)
[2018-05-30] MEDS: FUROSEMIDE 40 MG/4 ML VIAL (J1940) IV ×2 (17:00→17:15)
[2018-05-30] MEDS: METOPROLOL TART 12.5 MG PER 1/2 TAB PO ×2 (18:00→23:50)
[2018-05-30] MEDS ORDERED: METOPROLOL 5 MG/5 ML VIAL As Ordered (19:27)
[2018-05-30] MEDS: METOPROLOL 5 MG/5 ML VIAL IV (19:36)
[2018-05-30] MEDS: TAMSULOSIN 0.4 MG CAP PO (19:36)
[2018-05-30] MEDS: ASPIRIN 81 MG ENTERIC TAB PO (19:37)
[2018-05-30] MEDS: ATORVASTATIN 20 MG TAB PO (19:37)
[2018-05-30] MEDS ORDERED: ONDANSETRON 4MG/2ML VIAL (J2405) IV (19:45)
[2018-05-30] MEDS ORDERED: IPRATROPIUM 0.5MG/ALBUTEROL 2.5MG INH SOL UD 3ML (DUONEB)(J7620) NEB (19:45)
[2018-05-30] MEDS ORDERED: ONDANSETRON 4 MG TAB (S0181) PO (19:45)
[2018-05-30] MEDS: IPRATROPIUM 0.5MG/ALBUTEROL 2.5MG INH SOL UD 3ML (DUONEB)(J7620) NEB (20:56)
[2018-05-30] MEDS: methylPREDNISolone INJ 125 MG/2 ML VIAL (J2930) IV (21:41)
[2018-05-30] MEDS: HEPARIN SOD (PORCINE) 5000 UNITS/ML VIAL SC (21:42)
[2018-05-30 22:22] LABS: CPK CREATINE PHOSPHOKINASE 182 U/L (39-308); MB/CK RELATIVE INDEX 4.89 (< OR =4); TROPONIN I < 0.02 NG/ML (< 0.10)
[2018-05-31] MEDS: IPRATROPIUM 0.5MG/ALBUTEROL 2.5MG INH SOL UD 3ML (DUONEB)(J7620) NEB ×2 (02:00→07:57)
[2018-05-31] MEDS: methylPREDNISolone INJ 125 MG/2 ML VIAL (J2930) IV ×3 (06:32→20:01)
[2018-05-31] MEDS: HEPARIN SOD (PORCINE) 5000 UNITS/ML VIAL SC ×3 (06:33→21:38)
[2018-05-31] MEDS: METOPROLOL TART 12.5 MG PER 1/2 TAB PO (06:33)
[2018-05-31 06:37] LABS: HEMATOCRIT 40.9 % (42.0-52.0); HEMOGLOBIN 13.4 g/dl (13.5-17.5); IMMATURE GRANULOCYTE % 0.2 % (0-3.0); LYMPH # 0.6 10^3/uL (1.5-4.5); LYMPH % 11.8 % (24.0-44.0); MEAN CORPUSCULAR HGB CONC 32.8 g/dl (32.0-36.5); MEAN CORPUSCULAR VOLUME 94.7 fl (80.0-96.0); MONO # 0.2 10^3/uL (0.0-0.8); MONO % 2.8 % (0.0-5.0); NEUTROPHILS # 4.6 10^3/uL (1.8-7.7); NEUTROPHILS % 85.2 % (36.0-66.0); PLATELET COUNT, AUTOMATED 144 10^3/uL (150-450); RED BLOOD COUNT 4.32 10^6/uL (4.30-6.10); RED CELL DISTRIBUTION WIDTH 14.2 % (11.5-14.5); WHITE BLOOD COUNT 5.4 10^3/uL (4.0-10.0)
[2018-05-31 07:14] LABS: ANION GAP 11 MEQ/L (8-16); BLOOD UREA NITROGEN 27 MG/DL (7-18); CALCIUM LEVEL 8.7 MG/DL (8.8-10.2); CARBON DIOXIDE LEVEL 26 MEQ/L (21-32); CHLORIDE LEVEL 107 MEQ/L (98-107); CPK CREATINE PHOSPHOKINASE 169 U/L (39-308); CREATININE FOR GFR 1.53 MG/DL (0.70-1.30); GLOMERULAR FILTRATION RATE 46.9 (>35); GLUCOSE, FASTING 120 MG/DL (70-100); MAGNESIUM LEVEL 2.1 MG/DL (1.8-2.4); POTASSIUM SERUM 4.2 MEQ/L (3.5-5.1); SODIUM LEVEL 144 MEQ/L (136-145); TROPONIN I < 0.02 NG/ML (< 0.10)
[2018-05-31] MEDS: LEVALBUTEROL 1.25 MG/0.5 ML CONCENTRATE NEB INH ×4 (08:00→21:05)
[2018-05-31] MEDS: LACTOBACILLUS ACIDOPHILUS CAP (BACID) PO ×4 (08:39→21:38)
[2018-05-31] MEDS: ATORVASTATIN 20 MG TAB PO (08:39)
[2018-05-31] MEDS: ATENOLOL 25 MG TAB PO (08:40)
[2018-05-31] MEDS: TAMSULOSIN 0.4 MG CAP PO (08:40)
[2018-05-31] MEDS: MOXIFLOXACIN 400 MG TAB PO (08:40)
[2018-05-31] MEDS: DIGOXIN INJ 0.5 MG/2 ML AMP (J1160) IV (08:41)
[2018-05-31 09:10] LABS: NT-PRO BNP 14268 PG/ML (<450)
[2018-05-31] MEDS: METOPROLOL TART 25 MG TABLET PO ×2 (12:02→18:00)
[2018-05-31] MEDS: FUROSEMIDE 20 MG/2 ML VIAL (J1940) IV ×2 (12:04→20:04)
[2018-05-31 12:24] LABS: CPK CREATINE PHOSPHOKINASE 140 U/L (39-308); MB/CK RELATIVE INDEX 4.43 (< OR =4); TROPONIN I < 0.02 NG/ML (< 0.10)
[2018-05-31] MEDS: ASPIRIN 81 MG ENTERIC TAB PO (21:38)
[2018-06-01] MEDS: LEVALBUTEROL 1.25 MG/0.5 ML CONCENTRATE NEB INH ×5 (04:00→23:42)
[2018-06-01] MEDS ORDERED: MOXIFLOXACIN 400 MG TAB PO (06:00)
[2018-06-01 06:17] LABS: BASO % 0.1 % (0.0-1.0); HEMATOCRIT 39.5 % (42.0-52.0); HEMOGLOBIN 13.1 g/dl (13.5-17.5); IMMATURE GRANULOCYTE % 0.4 % (0-3.0); LYMPH # 0.5 10^3/uL (1.5-4.5); LYMPH % 3.8 % (24.0-44.0); MEAN CORPUSCULAR HGB CONC 33.2 g/dl (32.0-36.5); MEAN CORPUSCULAR VOLUME 93.6 fl (80.0-96.0); MONO # 0.7 10^3/uL (0.0-0.8); MONO % 5.4 % (0.0-5.0); NEUTROPHILS # 12.3 10^3/uL (1.8-7.7); NEUTROPHILS % 90.3 % (36.0-66.0); PLATELET COUNT, AUTOMATED 148 10^3/uL (150-450); RED BLOOD COUNT 4.22 10^6/uL (4.30-6.10); RED CELL DISTRIBUTION WIDTH 14.2 % (11.5-14.5); WHITE BLOOD COUNT 13.6 10^3/uL (4.0-10.0)
[2018-06-01] MEDS: methylPREDNISolone INJ 125 MG/2 ML VIAL (J2930) IV ×4 (06:34→18:46)
[2018-06-01] MEDS: HEPARIN SOD (PORCINE) 5000 UNITS/ML VIAL SC ×3 (06:36→21:12)
[2018-06-01 06:50] LABS: ANION GAP 12 MEQ/L (8-16); BLOOD UREA NITROGEN 44 MG/DL (7-18); CALCIUM LEVEL 8.5 MG/DL (8.8-10.2); CARBON DIOXIDE LEVEL 26 MEQ/L (21-32); CHLORIDE LEVEL 105 MEQ/L (98-107); CREATININE FOR GFR 1.58 MG/DL (0.70-1.30); GLOMERULAR FILTRATION RATE 45.1 (>35); GLUCOSE, FASTING 115 MG/DL (70-100); POTASSIUM SERUM 3.8 MEQ/L (3.5-5.1); SODIUM LEVEL 143 MEQ/L (136-145)
[2018-06-01 06:51] LABS: BEDSIDE GLUCOSE 112 MG/DL (83-110)
[2018-06-01] MEDS: FUROSEMIDE 20 MG/2 ML VIAL (J1940) IV ×4 (06:53→18:47)
[2018-06-01] MEDS: LevoFLOXacin 750 MG TABLET PO (06:59)
[2018-06-01] MEDS: METOPROLOL TART 25 MG TABLET PO ×4 (06:59→18:47)
[2018-06-01] MEDS: POTASSIUM CHLORIDE 10 MEQ SR TABLET PO (08:29)
[2018-06-01] MEDS: LACTOBACILLUS ACIDOPHILUS CAP (BACID) PO ×4 (08:29→21:12)
[2018-06-01] MEDS: PIPERACILLIN/TAZOBACTAM SOD 2.25 GM in D5W MINI-BAG PLUS 50 ML IV ×3 (08:29→21:12)
[2018-06-01] MEDS: ATORVASTATIN 20 MG TAB PO (08:29)
[2018-06-01] MEDS: TAMSULOSIN 0.4 MG CAP PO (08:29)
[2018-06-01] MEDS: FLUBLOK(EGG FREE)(QUAD)INFLUENZA VACC 0.5ML SYRINGE (90682)18YRS&OLDER IM (09:00)
[2018-06-01] MEDS: SPIRONOLACTONE 25 MG TAB PO (20:00)
[2018-06-01] MEDS: metOLazone 2.5 MG TAB PO (20:00)
[2018-06-01 20:40] LABS: ANION GAP 8 MEQ/L (8-16); BLOOD UREA NITROGEN 51 MG/DL (7-18); CARBON DIOXIDE LEVEL 33 MEQ/L (21-32); CHLORIDE LEVEL 102 MEQ/L (98-107); CREATININE FOR GFR 1.73 MG/DL (0.70-1.30); DIGOXIN LEVEL 0.5 NG/ML (0.5-2.0); GLOMERULAR FILTRATION RATE 40.7 (>35); GLUCOSE, FASTING 131 MG/DL (70-100); POTASSIUM SERUM 4.3 MEQ/L (3.5-5.1); SODIUM LEVEL 143 MEQ/L (136-145)
[2018-06-01] MEDS: DIGOXIN 0.0625MG PER 1/2TABLET PO (21:12)
[2018-06-01] MEDS: ASPIRIN 81 MG ENTERIC TAB PO (21:12)
[2018-06-01] MEDS ORDERED: PILL CRUSHER/CUTTER 1 EACH XX (21:15)
[2018-06-01] MEDS: CARVedilol 12.5 MG TAB PO (23:45)
[2018-06-02] MEDS: FUROSEMIDE 20 MG/2 ML VIAL (J1940) IV ×2 (00:03→05:53)
[2018-06-02] MEDS: CARVedilol 6.25 MG TAB PO (00:03)
[2018-06-02] MEDS: PIPERACILLIN/TAZOBACTAM SOD 2.25 GM in D5W MINI-BAG PLUS 50 ML IV ×4 (01:54→19:17)
[2018-06-02] MEDS: LEVALBUTEROL 1.25 MG/0.5 ML CONCENTRATE NEB INH ×6 (03:43→23:31)
[2018-06-02 05:09] LABS: BASO % 0.1 % (0.0-1.0); EOS % 0.1 % (0.0-3.0); HEMATOCRIT 42.8 % (42.0-52.0); HEMOGLOBIN 14.3 g/dl (13.5-17.5); IMMATURE GRANULOCYTE % 0.5 % (0-3.0); LYMPH # 0.6 10^3/uL (1.5-4.5); LYMPH % 4.3 % (24.0-44.0); MEAN CORPUSCULAR HEMOGLOBIN 31.4 pg (27.0-33.0); MEAN CORPUSCULAR HGB CONC 33.4 g/dl (32.0-36.5); MEAN CORPUSCULAR VOLUME 93.9 fl (80.0-96.0); MONO # 0.8 10^3/uL (0.0-0.8); MONO % 6.3 % (0.0-5.0); NEUTROPHILS # 11.5 10^3/uL (1.8-7.7); NEUTROPHILS % 88.7 % (36.0-66.0); PLATELET COUNT, AUTOMATED 177 10^3/uL (150-450); RED BLOOD COUNT 4.56 10^6/uL (4.30-6.10); RED CELL DISTRIBUTION WIDTH 14.3 % (11.5-14.5); WHITE BLOOD COUNT 12.9 10^3/uL (4.0-10.0)
[2018-06-02 05:46] LABS: ANION GAP 12 MEQ/L (8-16); BLOOD UREA NITROGEN 56 MG/DL (7-18); CARBON DIOXIDE LEVEL 30 MEQ/L (21-32); CHLORIDE LEVEL 101 MEQ/L (98-107); CREATININE FOR GFR 1.78 MG/DL (0.70-1.30); DIGOXIN LEVEL 0.7 NG/ML (0.5-2.0); GLOMERULAR FILTRATION RATE 39.3 (>35); GLUCOSE, FASTING 124 MG/DL (70-100); MAGNESIUM LEVEL 2.2 MG/DL (1.8-2.4); POTASSIUM SERUM 3.9 MEQ/L (3.5-5.1); SODIUM LEVEL 143 MEQ/L (136-145)
[2018-06-02] MEDS: CARVedilol 12.5 MG TAB PO ×2 (05:52→20:30)
[2018-06-02] MEDS: HEPARIN SOD (PORCINE) 5000 UNITS/ML VIAL SC ×3 (05:54→21:03)
[2018-06-02] MEDS ORDERED: metOLazone 2.5 MG TAB PO (09:00)
[2018-06-02] MEDS: LACTOBACILLUS ACIDOPHILUS CAP (BACID) PO ×4 (09:40→20:30)
[2018-06-02] MEDS: FLUBLOK(EGG FREE)(QUAD)INFLUENZA VACC 0.5ML SYRINGE (90682)18YRS&OLDER IM (09:40)
[2018-06-02] MEDS: TAMSULOSIN 0.4 MG CAP PO (09:40)
[2018-06-02] MEDS: ATORVASTATIN 20 MG TAB PO (09:40)
[2018-06-02] MEDS: DIGOXIN 0.0625MG PER 1/2TABLET PO (09:41)
[2018-06-02] MEDS: SPIRONOLACTONE 25 MG TAB PO (09:41)
[2018-06-02] MEDS ORDERED: SLF 3 ML SYR IV (10:15)
[2018-06-02] MEDS: POTASSIUM CHLORIDE 10 MEQ SR TABLET PO (12:44)
[2018-06-02] MEDS: SLF 3 ML SYR IV ×2 (12:44→20:33)
[2018-06-02] MEDS: ACETAMINOPHEN TAB 650MG DOSE (2X325MG) PO (19:14)
[2018-06-02] MEDS ORDERED: CALCIUM CARBONATE 500 MG CHEW U/D PO (20:00)
[2018-06-02] MEDS: ASPIRIN 81 MG ENTERIC TAB PO (20:31)
[2018-06-02 22:32] LABS: ANION GAP 10 MEQ/L (8-16); BLOOD UREA NITROGEN 68 MG/DL (7-18); CALCIUM LEVEL 8.2 MG/DL (8.8-10.2); CARBON DIOXIDE LEVEL 32 MEQ/L (21-32); CHLORIDE LEVEL 101 MEQ/L (98-107); CREATININE FOR GFR 1.95 MG/DL (0.70-1.30); DIGOXIN LEVEL 0.6 NG/ML (0.5-2.0); GLOMERULAR FILTRATION RATE 35.4 (>35); GLUCOSE, FASTING 134 MG/DL (70-100); POTASSIUM SERUM 3.7 MEQ/L (3.5-5.1); SODIUM LEVEL 143 MEQ/L (136-145)
[2018-06-03] MEDS: PIPERACILLIN/TAZOBACTAM SOD 2.25 GM in D5W MINI-BAG PLUS 50 ML IV ×3 (02:45→12:45)
[2018-06-03] MEDS: LEVALBUTEROL 1.25 MG/0.5 ML CONCENTRATE NEB INH ×5 (03:24→20:08)
[2018-06-03] MEDS: SLF 3 ML SYR IV ×3 (05:23→22:00)
[2018-06-03 05:26] LABS: BASO % 0.1 % (0.0-1.0); EOS # 0.1 10^3/uL (0.0-0.50); EOS % 0.7 % (0.0-3.0); HEMATOCRIT 42.8 % (42.0-52.0); HEMOGLOBIN 14.1 g/dl (13.5-17.5); IMMATURE GRANULOCYTE % 0.4 % (0-3.0); LYMPH # 1.2 10^3/uL (1.5-4.5); LYMPH % 12.3 % (24.0-44.0); MEAN CORPUSCULAR HEMOGLOBIN 30.9 pg (27.0-33.0); MEAN CORPUSCULAR HGB CONC 32.9 g/dl (32.0-36.5); MEAN CORPUSCULAR VOLUME 93.9 fl (80.0-96.0); MONO % 10.4 % (0.0-5.0); NEUTROPHILS # 7.2 10^3/uL (1.8-7.7); NEUTROPHILS % 76.1 % (36.0-66.0); PLATELET COUNT, AUTOMATED 167 10^3/uL (150-450); RED BLOOD COUNT 4.56 10^6/uL (4.30-6.10); RED CELL DISTRIBUTION WIDTH 14.3 % (11.5-14.5); WHITE BLOOD COUNT 9.4 10^3/uL (4.0-10.0)
[2018-06-03] MEDS: LevoFLOXacin 750 MG TABLET PO (05:42)
[2018-06-03] MEDS: HEPARIN SOD (PORCINE) 5000 UNITS/ML VIAL SC ×3 (05:43→22:34)
[2018-06-03 05:49] LABS: ANION GAP 9 MEQ/L (8-16); BLOOD UREA NITROGEN 62 MG/DL (7-18); CALCIUM LEVEL 8.9 MG/DL (8.8-10.2); CARBON DIOXIDE LEVEL 31 MEQ/L (21-32); CHLORIDE LEVEL 105 MEQ/L (98-107); GLOMERULAR FILTRATION RATE 41.5 (>35); GLUCOSE, FASTING 89 MG/DL (70-100); MAGNESIUM LEVEL 2.3 MG/DL (1.8-2.4); POTASSIUM SERUM 3.7 MEQ/L (3.5-5.1); SODIUM LEVEL 145 MEQ/L (136-145)
[2018-06-03] MEDS: LACTOBACILLUS ACIDOPHILUS CAP (BACID) PO ×4 (08:06→22:34)
[2018-06-03] MEDS: ATORVASTATIN 20 MG TAB PO (08:06)
[2018-06-03] MEDS: SPIRONOLACTONE 25 MG TAB PO (08:06)
[2018-06-03] MEDS: TAMSULOSIN 0.4 MG CAP PO (08:06)
[2018-06-03] MEDS: DIGOXIN 0.0625MG PER 1/2TABLET PO (08:07)
[2018-06-03] MEDS: CARVedilol 12.5 MG TAB PO ×2 (08:07→22:36)
[2018-06-03] MEDS: AMIODARONE HCL 150 MG in APPROPRIATE DILUENT 1 EA IV (08:55)
[2018-06-03] MEDS: POTASSIUM CHLORIDE 10 MEQ SR TABLET PO ×2 (08:55→10:37)
[2018-06-03 14:43] LABS: ANION GAP 9 MEQ/L (8-16); BLOOD UREA NITROGEN 64 MG/DL (7-18); CALCIUM LEVEL 8.3 MG/DL (8.8-10.2); CARBON DIOXIDE LEVEL 32 MEQ/L (21-32); CHLORIDE LEVEL 102 MEQ/L (98-107); CREATININE FOR GFR 1.77 MG/DL (0.70-1.30); GLOMERULAR FILTRATION RATE 39.6 (>35); GLUCOSE, FASTING 114 MG/DL (70-100); MAGNESIUM LEVEL 2.1 MG/DL (1.8-2.4); POTASSIUM SERUM 4.4 MEQ/L (3.5-5.1); SODIUM LEVEL 143 MEQ/L (136-145)
[2018-06-03] MEDS: ASPIRIN 81 MG ENTERIC TAB PO (22:34)
[2018-06-03] MEDS: CEFEPIME HCL 2 GM in D5W MINI-BAG PLUS 50 ML IV (22:34)
[2018-06-04] MEDS: LEVALBUTEROL 1.25 MG/0.5 ML CONCENTRATE NEB INH ×6 (04:00→20:00)
[2018-06-04 05:28] LABS: BASO % 0.1 % (0.0-1.0); EOS # 0.2 10^3/uL (0.0-0.50); EOS % 1.7 % (0.0-3.0); HEMATOCRIT 43.9 % (42.0-52.0); HEMOGLOBIN 13.9 g/dl (13.5-17.5); IMMATURE GRANULOCYTE % 0.6 % (0-3.0); LYMPH # 1.1 10^3/uL (1.5-4.5); LYMPH % 10.4 % (24.0-44.0); MEAN CORPUSCULAR HEMOGLOBIN 30.2 pg (27.0-33.0); MEAN CORPUSCULAR HGB CONC 31.7 g/dl (32.0-36.5); MEAN CORPUSCULAR VOLUME 95.2 fl (80.0-96.0); NEUTROPHILS # 8.1 10^3/uL (1.8-7.7); NEUTROPHILS % 77.2 % (36.0-66.0); PLATELET COUNT, AUTOMATED 175 10^3/uL (150-450); RED BLOOD COUNT 4.61 10^6/uL (4.30-6.10); RED CELL DISTRIBUTION WIDTH 14.1 % (11.5-14.5); WHITE BLOOD COUNT 10.4 10^3/uL (4.0-10.0)
[2018-06-04 05:44] LABS: ANION GAP 5 MEQ/L (8-16); BLOOD UREA NITROGEN 55 MG/DL (7-18); CALCIUM LEVEL 8.8 MG/DL (8.8-10.2); CARBON DIOXIDE LEVEL 31 MEQ/L (21-32); CHLORIDE LEVEL 107 MEQ/L (98-107); CREATININE FOR GFR 1.55 MG/DL (0.70-1.30); GLOMERULAR FILTRATION RATE 46.2 (>35); GLUCOSE, FASTING 90 MG/DL (70-100); MAGNESIUM LEVEL 2.3 MG/DL (1.8-2.4); POTASSIUM SERUM 4.6 MEQ/L (3.5-5.1); SODIUM LEVEL 143 MEQ/L (136-145)
[2018-06-04] MEDS: SLF 3 ML SYR IV ×3 (06:00→20:57)
[2018-06-04] MEDS: HEPARIN SOD (PORCINE) 5000 UNITS/ML VIAL SC ×3 (06:13→20:56)
[2018-06-04] MEDS: DIGOXIN 0.0625MG PER 1/2TABLET PO (08:03)
[2018-06-04] MEDS: ATORVASTATIN 20 MG TAB PO (08:03)
[2018-06-04] MEDS: LACTOBACILLUS ACIDOPHILUS CAP (BACID) PO ×4 (08:03→20:56)
[2018-06-04] MEDS: SPIRONOLACTONE 25 MG TAB PO (08:04)
[2018-06-04] MEDS: CARVedilol 12.5 MG TAB PO ×2 (08:04→20:56)
[2018-06-04] MEDS: TAMSULOSIN 0.4 MG CAP PO (08:04)
[2018-06-04] MEDS: FUROSEMIDE 20 MG/2 ML VIAL (J1940) IV ×2 (10:34→20:57)
[2018-06-04] MEDS: ASPIRIN 81 MG ENTERIC TAB PO (20:56)
[2018-06-04] MEDS: CEFEPIME HCL 2 GM in D5W MINI-BAG PLUS 50 ML IV (20:57)
[2018-06-05] MEDS: LEVALBUTEROL 1.25 MG/0.5 ML CONCENTRATE NEB INH ×5 (03:37→20:15)
[2018-06-05] MEDS: LevoFLOXacin 750 MG TABLET PO (05:57)
[2018-06-05] MEDS: HEPARIN SOD (PORCINE) 5000 UNITS/ML VIAL SC ×3 (05:58→20:59)
[2018-06-05] MEDS: SLF 3 ML SYR IV ×3 (05:58→20:59)
[2018-06-05 06:04] LABS: BASO % 0.2 % (0.0-1.0); EOS # 0.4 10^3/uL (0.0-0.50); EOS % 2.9 % (0.0-3.0); HEMATOCRIT 43.5 % (42.0-52.0); IMMATURE GRANULOCYTE % 0.8 % (0-3.0); LYMPH # 0.8 10^3/uL (1.5-4.5); LYMPH % 6.4 % (24.0-44.0); MEAN CORPUSCULAR HEMOGLOBIN 30.8 pg (27.0-33.0); MEAN CORPUSCULAR HGB CONC 32.2 g/dl (32.0-36.5); MEAN CORPUSCULAR VOLUME 95.8 fl (80.0-96.0); MONO # 0.9 10^3/uL (0.0-0.8); MONO % 7.8 % (0.0-5.0); NEUTROPHILS # 9.8 10^3/uL (1.8-7.7); NEUTROPHILS % 81.9 % (36.0-66.0); PLATELET COUNT, AUTOMATED 177 10^3/uL (150-450); RED BLOOD COUNT 4.54 10^6/uL (4.30-6.10); RED CELL DISTRIBUTION WIDTH 14.1 % (11.5-14.5)
[2018-06-05 06:20] LABS: MAGNESIUM LEVEL 2.5 MG/DL (1.8-2.4)
[2018-06-05 06:22] LABS: ANION GAP 6 MEQ/L (8-16); BLOOD UREA NITROGEN 58 MG/DL (7-18); CALCIUM LEVEL 9.2 MG/DL (8.8-10.2); CARBON DIOXIDE LEVEL 29 MEQ/L (21-32); CHLORIDE LEVEL 106 MEQ/L (98-107); CREATININE FOR GFR 1.37 MG/DL (0.70-1.30); GLOMERULAR FILTRATION RATE 53.2 (>35); GLUCOSE, FASTING 103 MG/DL (70-100); POTASSIUM SERUM 4.2 MEQ/L (3.5-5.1); SODIUM LEVEL 141 MEQ/L (136-145)
[2018-06-05] MEDS: ATORVASTATIN 20 MG TAB PO (08:53)
[2018-06-05] MEDS: DIGOXIN 0.0625MG PER 1/2TABLET PO (08:53)
[2018-06-05] MEDS: TAMSULOSIN 0.4 MG CAP PO (08:54)
[2018-06-05] MEDS: SPIRONOLACTONE 25 MG TAB PO (08:54)
[2018-06-05] MEDS: LACTOBACILLUS ACIDOPHILUS CAP (BACID) PO ×4 (08:54→20:58)
[2018-06-05] MEDS: FUROSEMIDE 40 MG TAB PO ×2 (08:54→17:00)
[2018-06-05] MEDS: CARVedilol 12.5 MG TAB PO ×2 (08:55→20:59)
[2018-06-05] MEDS: NS 500 ML IV (13:11)
[2018-06-05] MEDS: CEFEPIME HCL 2 GM in D5W MINI-BAG PLUS 50 ML IV (20:57)
[2018-06-05] MEDS: ASPIRIN 81 MG ENTERIC TAB PO (20:58)
[2018-06-06] MEDS ORDERED: RAMELTEON 8 MG TAB (ROZEREM) PO (00:18)
[2018-06-06] MEDS: RAMELTEON 8 MG TAB (ROZEREM) PO (00:48)
[2018-06-06] MEDS: LEVALBUTEROL 1.25 MG/0.5 ML CONCENTRATE NEB INH ×4 (01:41→20:40)
[2018-06-06] MEDS: HEPARIN SOD (PORCINE) 5000 UNITS/ML VIAL SC ×3 (05:34→21:18)
[2018-06-06] MEDS: SLF 3 ML SYR IV ×3 (05:34→21:18)
[2018-06-06 06:08] LABS: BASO % 0.1 % (0.0-1.0); EOS # 0.5 10^3/uL (0.0-0.50); HEMATOCRIT 42.6 % (42.0-52.0); HEMOGLOBIN 14.1 g/dl (13.5-17.5); IMMATURE GRANULOCYTE % 0.5 % (0-3.0); LYMPH # 0.7 10^3/uL (1.5-4.5); LYMPH % 4.8 % (24.0-44.0); MEAN CORPUSCULAR HEMOGLOBIN 31.4 pg (27.0-33.0); MEAN CORPUSCULAR HGB CONC 33.1 g/dl (32.0-36.5); MEAN CORPUSCULAR VOLUME 94.9 fl (80.0-96.0); MONO # 1.1 10^3/uL (0.0-0.8); NEUTROPHILS # 12.8 10^3/uL (1.8-7.7); NEUTROPHILS % 84.6 % (36.0-66.0); PLATELET COUNT, AUTOMATED 196 10^3/uL (150-450); RED BLOOD COUNT 4.49 10^6/uL (4.30-6.10); RED CELL DISTRIBUTION WIDTH 14.1 % (11.5-14.5); WHITE BLOOD COUNT 15.1 10^3/uL (4.0-10.0)
[2018-06-06 06:27] LABS: ANION GAP 10 MEQ/L (8-16); BLOOD UREA NITROGEN 59 MG/DL (7-18); CALCIUM LEVEL 9.2 MG/DL (8.8-10.2); CARBON DIOXIDE LEVEL 28 MEQ/L (21-32); CHLORIDE LEVEL 105 MEQ/L (98-107); CREATININE FOR GFR 1.34 MG/DL (0.70-1.30); GLOMERULAR FILTRATION RATE 54.6 (>35); GLUCOSE, FASTING 94 MG/DL (70-100); MAGNESIUM LEVEL 2.4 MG/DL (1.8-2.4); POTASSIUM SERUM 4.7 MEQ/L (3.5-5.1); SODIUM LEVEL 143 MEQ/L (136-145)
[2018-06-06] MEDS: TIOTROPIUM INHALER/CAPSULE (SPIRIVA) INH (08:42)
[2018-06-06] MEDS: CARVedilol 12.5 MG TAB PO ×2 (09:00→21:18)
[2018-06-06] MEDS: DIGOXIN 0.0625MG PER 1/2TABLET PO (09:45)
[2018-06-06] MEDS: TAMSULOSIN 0.4 MG CAP PO (09:46)
[2018-06-06] MEDS: ATORVASTATIN 20 MG TAB PO (09:46)
[2018-06-06] MEDS: LACTOBACILLUS ACIDOPHILUS CAP (BACID) PO ×4 (09:46→21:17)
[2018-06-06] MEDS: ASPIRIN 81 MG ENTERIC TAB PO (21:18)
[2018-06-07] MEDS: LEVALBUTEROL 1.25 MG/0.5 ML CONCENTRATE NEB INH ×5 (01:50→20:26)
[2018-06-07] MEDS: HEPARIN SOD (PORCINE) 5000 UNITS/ML VIAL SC ×3 (05:47→21:03)
[2018-06-07] MEDS: SLF 3 ML SYR IV ×3 (05:47→21:03)
[2018-06-07 06:30] LABS: DIGOXIN LEVEL 0.8 NG/ML (0.5-2.0)
[2018-06-07] MEDS: TIOTROPIUM INHALER/CAPSULE (SPIRIVA) INH (07:50)
[2018-06-07] MEDS: LACTOBACILLUS ACIDOPHILUS CAP (BACID) PO ×4 (08:22→21:02)
[2018-06-07] MEDS: TAMSULOSIN 0.4 MG CAP PO (08:22)
[2018-06-07] MEDS: ATORVASTATIN 20 MG TAB PO (08:22)
[2018-06-07] MEDS: CARVedilol 12.5 MG TAB PO ×2 (08:23→21:00)
[2018-06-07] MEDS: DIGOXIN 0.0625MG PER 1/2TABLET PO (08:23)
[2018-06-07 08:50] LABS: BASO % 0.2 % (0.0-1.0); EOS # 0.4 10^3/uL (0.0-0.50); EOS % 3.8 % (0.0-3.0); HEMATOCRIT 42.4 % (42.0-52.0); HEMOGLOBIN 13.7 g/dl (13.5-17.5); IMMATURE GRANULOCYTE % 0.8 % (0-3.0); LYMPH # 0.9 10^3/uL (1.5-4.5); LYMPH % 7.8 % (24.0-44.0); MEAN CORPUSCULAR HEMOGLOBIN 31.1 pg (27.0-33.0); MEAN CORPUSCULAR HGB CONC 32.3 g/dl (32.0-36.5); MEAN CORPUSCULAR VOLUME 96.1 fl (80.0-96.0); MONO % 8.4 % (0.0-5.0); NEUTROPHILS # 9.3 10^3/uL (1.8-7.7); PLATELET COUNT, AUTOMATED 172 10^3/uL (150-450); RED BLOOD COUNT 4.41 10^6/uL (4.30-6.10); RED CELL DISTRIBUTION WIDTH 14.3 % (11.5-14.5); WHITE BLOOD COUNT 11.7 10^3/uL (4.0-10.0)
[2018-06-07 11:31] LABS: ANION GAP 10 MEQ/L (8-16); BLOOD UREA NITROGEN 61 MG/DL (7-18); CALCIUM LEVEL 8.9 MG/DL (8.8-10.2); CARBON DIOXIDE LEVEL 26 MEQ/L (21-32); CHLORIDE LEVEL 107 MEQ/L (98-107); CREATININE FOR GFR 1.23 MG/DL (0.70-1.30); GLOMERULAR FILTRATION RATE > 60.0 (>35); GLUCOSE, FASTING 90 MG/DL (70-100); MAGNESIUM LEVEL 2.4 MG/DL (1.8-2.4); POTASSIUM SERUM 4.2 MEQ/L (3.5-5.1); SODIUM LEVEL 143 MEQ/L (136-145)
[2018-06-07] MEDS: ASPIRIN 81 MG ENTERIC TAB PO (21:03)
[2018-06-08] MEDS: LEVALBUTEROL 1.25 MG/0.5 ML CONCENTRATE NEB INH ×4 (02:00→21:00)
[2018-06-08] MEDS: SLF 3 ML SYR IV ×3 (05:36→21:14)
[2018-06-08] MEDS: HEPARIN SOD (PORCINE) 5000 UNITS/ML VIAL SC ×3 (05:40→21:14)
[2018-06-08 06:56] LABS: BASO % 0.2 % (0.0-1.0); EOS # 0.5 10^3/uL (0.0-0.50); EOS % 4.6 % (0.0-3.0); HEMATOCRIT 42.3 % (42.0-52.0); HEMOGLOBIN 13.9 g/dl (13.5-17.5); IMMATURE GRANULOCYTE % 1.3 % (0-3.0); LYMPH % 9.7 % (24.0-44.0); MEAN CORPUSCULAR HEMOGLOBIN 31.1 pg (27.0-33.0); MEAN CORPUSCULAR HGB CONC 32.9 g/dl (32.0-36.5); MEAN CORPUSCULAR VOLUME 94.6 fl (80.0-96.0); MONO # 1.1 10^3/uL (0.0-0.8); MONO % 10.5 % (0.0-5.0); NEUTROPHILS # 7.6 10^3/uL (1.8-7.7); NEUTROPHILS % 73.7 % (36.0-66.0); PLATELET COUNT, AUTOMATED 178 10^3/uL (150-450); RED BLOOD COUNT 4.47 10^6/uL (4.30-6.10); RED CELL DISTRIBUTION WIDTH 14.2 % (11.5-14.5); WHITE BLOOD COUNT 10.3 10^3/uL (4.0-10.0)
[2018-06-08 07:12] LABS: ANION GAP 8 MEQ/L (8-16); BLOOD UREA NITROGEN 58 MG/DL (7-18); CALCIUM LEVEL 8.8 MG/DL (8.8-10.2); CARBON DIOXIDE LEVEL 29 MEQ/L (21-32); CHLORIDE LEVEL 106 MEQ/L (98-107); CREATININE FOR GFR 1.15 MG/DL (0.70-1.30); GLOMERULAR FILTRATION RATE > 60.0 (>35); GLUCOSE, FASTING 76 MG/DL (70-100); POTASSIUM SERUM 4.4 MEQ/L (3.5-5.1); SODIUM LEVEL 143 MEQ/L (136-145)
[2018-06-08] MEDS: TIOTROPIUM INHALER/CAPSULE (SPIRIVA) INH (08:08)
[2018-06-08] MEDS: LACTOBACILLUS ACIDOPHILUS CAP (BACID) PO ×4 (08:12→20:20)
[2018-06-08] MEDS: DIGOXIN 0.0625MG PER 1/2TABLET PO (08:12)
[2018-06-08] MEDS: ATORVASTATIN 20 MG TAB PO (08:12)
[2018-06-08] MEDS: TAMSULOSIN 0.4 MG CAP PO (08:12)
[2018-06-08] MEDS: CARVedilol 12.5 MG TAB PO ×2 (08:13→20:20)
[2018-06-08] MEDS: FUROSEMIDE 40 MG TAB PO (09:00)
[2018-06-08] MEDS: ASPIRIN 81 MG ENTERIC TAB PO (20:20)
[2018-06-09] MEDS: LEVALBUTEROL 1.25 MG/0.5 ML CONCENTRATE NEB INH ×2 (02:00→07:30)
[2018-06-09] MEDS: HEPARIN SOD (PORCINE) 5000 UNITS/ML VIAL SC (05:34)
[2018-06-09] MEDS: SLF 3 ML SYR IV (05:34)
[2018-06-09 07:08] LABS: BASO % 0.2 % (0.0-1.0); EOS # 0.4 10^3/uL (0.0-0.50); EOS % 5.2 % (0.0-3.0); HEMATOCRIT 43.1 % (42.0-52.0); HEMOGLOBIN 14.1 g/dl (13.5-17.5); IMMATURE GRANULOCYTE % 1.2 % (0-3.0); LYMPH % 12.4 % (24.0-44.0); MEAN CORPUSCULAR HEMOGLOBIN 30.9 pg (27.0-33.0); MEAN CORPUSCULAR HGB CONC 32.7 g/dl (32.0-36.5); MEAN CORPUSCULAR VOLUME 94.5 fl (80.0-96.0); MONO # 0.9 10^3/uL (0.0-0.8); MONO % 10.7 % (0.0-5.0); NEUTROPHILS # 5.7 10^3/uL (1.8-7.7); NEUTROPHILS % 70.3 % (36.0-66.0); PLATELET COUNT, AUTOMATED 166 10^3/uL (150-450); RED BLOOD COUNT 4.56 10^6/uL (4.30-6.10); RED CELL DISTRIBUTION WIDTH 14.2 % (11.5-14.5); WHITE BLOOD COUNT 8.1 10^3/uL (4.0-10.0)
[2018-06-09 07:26] LABS: ANION GAP 5 MEQ/L (8-16); BLOOD UREA NITROGEN 51 MG/DL (7-18); CALCIUM LEVEL 8.5 MG/DL (8.8-10.2); CARBON DIOXIDE LEVEL 30 MEQ/L (21-32); CHLORIDE LEVEL 106 MEQ/L (98-107); CREATININE FOR GFR 1.03 MG/DL (0.70-1.30); GLOMERULAR FILTRATION RATE > 60.0 (>35); GLUCOSE, FASTING 79 MG/DL (70-100); POTASSIUM SERUM 4.4 MEQ/L (3.5-5.1); SODIUM LEVEL 141 MEQ/L (136-145)
[2018-06-09] MEDS: TIOTROPIUM INHALER/CAPSULE (SPIRIVA) INH (07:30)
[2018-06-09] MEDS: TAMSULOSIN 0.4 MG CAP PO (08:35)
[2018-06-09] MEDS: LACTOBACILLUS ACIDOPHILUS CAP (BACID) PO ×2 (08:35→13:23)
[2018-06-09] MEDS: DIGOXIN 0.0625MG PER 1/2TABLET PO (08:35)
[2018-06-09] MEDS: ATORVASTATIN 20 MG TAB PO (08:35)
[2018-06-09] MEDS: CARVedilol 12.5 MG TAB PO (08:36)
[2018-06-09] MEDS ORDERED: LEVALBUTEROL 1.25 MG/0.5 ML CONCENTRATE NEB INH (09:45)
== END 2018-06-09 14:04 | disposition home or self-care (01) | DRG 291 ==
LOC: M MS5PR 06-08 17:54 → M PCU 05-31 15:39 → M ED 13:39 → M ED INP 19:43
PROVIDERS: Hospitalist
DX: I13.0 Hypertensive heart and chronic kidney disease with heart failure and stage 1 through stage 4 chronic kidney disease, or unspecified chronic kidney disease (principal); I50.23 Acute on chronic systolic (congestive) heart failure; E43 Unspecified severe protein-calorie malnutrition; J44.1 Chronic obstructive pulmonary disease with (acute) exacerbation; I47.2 Ventricular tachycardia; Z68.1 Body mass index [BMI] 19.9 or less, adult; I48.2 Chronic atrial fibrillation; N18.3 Chronic kidney disease, stage 3 (moderate); E78.5 Hyperlipidemia, unspecified; Z95.810 Presence of automatic (implantable) cardiac defibrillator; I25.10 Atherosclerotic heart disease of native coronary artery without angina pectoris; I25.2 Old myocardial infarction; Z85.46 Personal history of malignant neoplasm of prostate; Z87.891 Personal history of nicotine dependence; Z79.82 Long term (current) use of aspirin; Z79.899 Other long term (current) drug therapy

== ENCOUNTER → 2018-06-13 | Outpatient (CLI) | payer MEDICARE | LOC: M RAD 12:06 | DX: R91.8 Other nonspecific abnormal finding of lung field (principal) | CPT/HCPCS: 71046 ==

== ENCOUNTER → 2018-06-25 | Outpatient (CLI) | payer MEDICARE ==
[~2018-06-25] MED LIST changes: -AMIO200T PO; -AMIO200T37 PO; -AMLO5TAB2 PO; -ANOR1AER IN; -ASPI81CH PO; -ATOR40TA75 PO; -BREO1INH3 INH; -CEPH500C PO; -FLUT11IN INH; +GASTROGRAFIN SOLUTION 30ML (Q9963) As Ordered; -GASTROGRAFIN SOLUTION 30ML (Q9963) As Ordered ONE; -IPRASOL4 IN; -IPRASOL4 INH; -IPRASOL4 NEB; +ISOVUE-370 76% 100ML VIAL (Q9967) As Ordered; -METO-346 PO; -METO25TA4 PO; -NICO7DIS4 TD; -RAMI5CA PO; -SYMB80INH INH; -VITA-122 PO
== END ==
LOC: M RAD 14:54
DX: R63.4 Abnormal weight loss (principal); N28.1 Cyst of kidney, acquired; I70.0 Atherosclerosis of aorta
CPT/HCPCS: Q9963

== ENCOUNTER → 2018-07-12 | Outpatient (CLI) | payer MEDICARE ==
[2018-07-12 12:23] LABS: MEAN CORPUSCULAR HEMOGLOBIN 30.6 pg (27.0-33.0); MEAN CORPUSCULAR HGB CONC 32.4 g/dl (32.0-36.5); MEAN CORPUSCULAR VOLUME 94.4 fl (80.0-96.0); PLATELET COUNT, AUTOMATED 171 10^3/uL (150-450); RED BLOOD COUNT 3.92 10^6/uL (4.30-6.10); RED CELL DISTRIBUTION WIDTH 13.8 % (11.5-14.5); WHITE BLOOD COUNT 6.6 10^3/uL (4.0-10.0)
[2018-07-12 12:29] LABS: APPEARANCE, URINE CLEAR (CLEAR); BACTERIA, URINE AUTO NEGATIVE (NEGATIVE); BILIRUBIN, URINE AUTO NEGATIVE (NEGATIVE); BLOOD, URINE BLOOD NEGATIVE (NEGATIVE); COLOR, URINE YELLOW (YELLOW); GLUCOSE, URINE (UA) AUTO NEGATIVE (NEGATIVE); KETONE, URINE AUTO NEGATIVE (NEGATIVE); LEUKOCYTE ESTERASE, URINE AUTO NEGATIVE (NEGATIVE); MUCUS, URINE SMALL (NEGATIVE); NITRITE, URINE AUTO NEGATIVE (NEGATIVE); PROTEIN, URINE AUTO NEGATIVE (NEGATIVE); RBC, URINE AUTO 3 /HPF (0-3); SPECIFIC GRAVITY URINE AUTO 1.021 (1.002-1.035); SQUAMOUS EPITHELIAL CELL UR AU 0 /HPF (0-6); WBC, URINE AUTO 4 /HPF (0-3)
[2018-07-12 12:50] LABS: ESTIMATED AVERAGE GLUCOSE 123 MG/DL (60-110); HEMOGLOBIN A1c 5.9 %
[2018-07-12 13:10] LABS: ALBUMIN 3.2 GM/DL (3.2-5.2); ALBUMIN/GLOBULIN RATIO 1.23 (1.00-1.93); ALKALINE PHOSPHATASE 111 U/L (45-117); ALT/SGPT 27 U/L (12-78); ANION GAP 7 MEQ/L (8-16); AST/SGOT 18 U/L (7-37); BILIRUBIN,TOTAL 0.5 MG/DL (0.2-1.0); BLOOD UREA NITROGEN 16 MG/DL (7-18); CARBON DIOXIDE LEVEL 29 MEQ/L (21-32); CHLORIDE LEVEL 109 MEQ/L (98-107); CREATININE FOR GFR 1.19 MG/DL (0.70-1.30); DIGOXIN LEVEL 0.7 NG/ML (0.5-2.0); FOLATE 10.6 NG/ML; FREE T4 1.01 NG/DL (0.76-1.46); GLOMERULAR FILTRATION RATE > 60.0 (>35); GLUCOSE, FASTING 103 MG/DL (70-100); IRON (FE) 108 UG/DL (65-175); MAGNESIUM LEVEL 2.1 MG/DL (1.8-2.4); NT-PRO BNP 7184 PG/ML (<450); POTASSIUM SERUM 4.2 MEQ/L (3.5-5.1); SODIUM LEVEL 145 MEQ/L (136-145); TOTAL PROTEIN 5.8 GM/DL (6.4-8.2); VITAMIN B12 LEVEL 417 PG/ML
== END ==
LOC: M LAB 11:14
DX: Z51.81 Encounter for therapeutic drug level monitoring (principal); I70.0 Atherosclerosis of aorta; Z79.899 Other long term (current) drug therapy
CPT/HCPCS: 80162

== ENCOUNTER → 2020-02-06 | Outpatient (CLI) | payer MEDICARE ==
[~2020-02-06] MED LIST changes: +AMIO200T3 PO; +AMIO200T37 PO; +AMLO1TAB24 PO; +ANOR1AER IN; +ASPI-546 PO; +ASPI81CH49 PO; +ATOR40TA75 PO; +BREO1INH3 INH; +CARV12.5 PO; +CEPH500C PO; +COMBAER6 INH; +DIGO0.123 PO; +FLOM0.4C39 PO; +FLUT11IN INH; -GASTROGRAFIN SOLUTION 30ML (Q9963) As Ordered; +IPRA0.00 IN; +IPRA0.00 INH; +IPRA0.00 NEB; -ISOVUE-370 76% 100ML VIAL (Q9967) As Ordered; +LEVA0.636 INH; +LEVA12INH INH; +METO-346 PO; +METO25TA4 PO; +NICO7DIS4 TD; +RAMI1CAP24 PO; +SYMB80INH INH; +TIOT18INH INH; +VITA-122 PO
== END ==
LOC: M LABSMTC 13:35
PROVIDERS: ATTEND Family Medicine
DX: Z03.818 Encounter for observation for suspected exposure to other biological agents ruled out (principal); Z11.59 Encounter for screening for other viral diseases
CPT/HCPCS: C9803; U0003

== ENCOUNTER → 2020-08-12 | Outpatient (CLI) | payer SELFPAY | LOC: M LABSMTC 13:55 | PROVIDERS: ATTEND Pediatrics | DX: Z20.828 Contact with and (suspected) exposure to other viral communicable diseases (principal) ==

== ENCOUNTER 2021-06-24 18:05 | Inpatient (IN) | payer MEDICARE ==
[~2021-06-24] VITALS: Ht 165.1 cm; Wt 45.0 kg
[~2021-06-24 18:05] MED LIST changes: -AMIO200T3 PO; +AMIO200T49 PO
[2021-06-24] MEDS ORDERED: XARE15TA PO (18:22)
[2021-06-24 19:40] LABS: BASO % 0.2 % (0.0-1.0); EOS # 0.1 10^3/uL (0.0-0.5); HEMATOCRIT 48.7 % (42.0-52.0); LYMPH # 0.7 10^3/uL (1.5-5.0); LYMPH % 13.4 % (24.0-44.0); MEAN CORPUSCULAR HEMOGLOBIN 30.8 pg (27.0-33.0); MEAN CORPUSCULAR HGB CONC 32.9 g/dl (32.0-36.5); MEAN CORPUSCULAR VOLUME 93.8 fl (80.0-96.0); MONO # 0.5 10^3/uL (0.0-0.8); MONO % 8.8 % (2.0-8.0); PLATELET COUNT, AUTOMATED 185 10^3/uL (150-450); RED BLOOD COUNT 5.19 10^6/uL (4.30-6.10); WHITE BLOOD COUNT 5.2 10^3/uL (4.0-10.0)
[2021-06-24 20:07] LABS: ALBUMIN 3.2 GM/DL (3.2-5.2); BILIRUBIN,DIRECT 0.2 MG/DL (0.0-0.2); BILIRUBIN,TOTAL 0.7 MG/DL (0.2-1.0); CALCIUM LEVEL 8.9 MG/DL (8.8-10.2); CK-MB VALUE MASS 2.8 NG/ML (<3.6); CREATININE FOR GFR 1.81 MG/DL (0.70-1.30); GLOMERULAR FILTRATION RATE 38.3 (>35); MB/CK RELATIVE INDEX 2.55 (< OR =4); POTASSIUM SERUM 4.2 MEQ/L (3.5-5.1); THYROID STIMULATING HORMONE 2.63 uIU/ML (0.358-3.740); TOTAL PROTEIN 6.7 GM/DL (6.4-8.2); TROPONIN I 0.02 NG/ML (< 0.10)
[2021-06-24 21:08] LABS: RSV AMPLIFICATION NEGATIVE (NEGATIVE)
[2021-06-25] MEDS: NS 1,000 ML IV SCH ×2 (00:30→10:39)
[2021-06-25 01:12] LABS: CHOLESTEROL RISK RATIO 3.12 (<5)
[2021-06-25] MEDS ORDERED: COMBAER6 INH (06:09)
[2021-06-25] MEDS ORDERED: K-TA10TA PO (06:09)
[2021-06-25] MEDS ORDERED: VITMTA PO (06:09)
[2021-06-25] MEDS ORDERED: HOME MED LIST COMPLETE! XX SCH (06:10)
[2021-06-25 06:57] LABS: INR 1.17; PROTHROMBIN TIME 15.3 SECONDS (12.7-14.5)
[2021-06-25 06:58] LABS: PARTIAL THROMBOPLASTIN TIME 25.9 SECONDS (25.9-37.0)
[2021-06-25 07:00] LABS: D-DIMER QUANT 1436.82 ng/ml (<500)
[2021-06-25 07:18] LABS: C REACTIVE PROTEIN QUANTITATIV 1.46 MG/DL (0.00-0.30); TROPONIN I 0.04 NG/ML (< 0.10)
[2021-06-25] MEDS: dexameTHASONE 4 MG/ML 1ML VIAL (J1100 PER 1MG) IV SCH (09:44)
[2021-06-25] MEDS ORDERED: METOPROLOL 5 MG/5 ML VIAL IV STA (10:16)
[2021-06-25 12:00] VITALS: BP 138/80
[2021-06-25] MEDS ORDERED: LEVALBUTEROL 1.25 MG/0.5 ML CONCENTRATE NEB INH PRN (12:35)
[2021-06-25] MEDS ORDERED: METOPROLOL 5 MG/5 ML VIAL IV PRN (12:40)
[2021-06-25] MEDS ORDERED: REMDESIVIR 200 MG in NS 250 ML IV ONE (13:00)
[2021-06-25] MEDS ORDERED: LORazepam 2 MG TAB PO PRN (13:05)
[2021-06-25] MEDS: MULTIVITAMINS/MINERALS THERAP 1 TAB PO SCH (13:22)
[2021-06-25] MEDS: THIAMINE 100 MG TAB PO SCH ×2 (13:22→20:08)
[2021-06-25] MEDS: FOLIC ACID 1 MG TAB PO SCH (13:23)
[2021-06-25] MEDS: ATORVASTATIN 20 MG TAB PO SCH (13:23)
[2021-06-25 13:29] VITALS: BP 114/74
[2021-06-25 14:07] VITALS: BP 114/71
[2021-06-25 14:36] LABS: VENOUS BASE EXCESS -7.5 (-2.0-2.0); VENOUS HCO3 20.3 MEQ/L (23.0-27.0); VENOUS O2 SATURATION 50.2 % (60.0-80.0); VENOUS PARTIAL PRESSURE CO2 49.8 mmHg (38.0-50.0); VENOUS PARTIAL PRESSURE O2 31.4 mmHg (30.0-50.0); VENOUS PH 7.228 UNITS (7.330-7.430); VENOUS STANDARD HCO3 17.4 MEQ/L; VENOUS TOTAL CO2 21.8 MEQ/L (24.0-28.0)
[2021-06-25 14:42] LABS: BASO % 0.1 % (0.0-1.0); EOS % 0.3 % (0.0-3.0); HEMATOCRIT 44.7 % (42.0-52.0); HEMOGLOBIN 14.5 g/dl (13.5-17.5); LYMPH # 0.6 10^3/uL (1.5-5.0); LYMPH % 8.3 % (24.0-44.0); MEAN CORPUSCULAR HEMOGLOBIN 30.8 pg (27.0-33.0); MEAN CORPUSCULAR HGB CONC 32.4 g/dl (32.0-36.5); MEAN CORPUSCULAR VOLUME 94.9 fl (80.0-96.0); MONO # 0.2 10^3/uL (0.0-0.8); MONO % 2.9 % (2.0-8.0); NEUTROPHILS # 6.3 10^3/uL (1.5-8.5); PLATELET COUNT, AUTOMATED 158 10^3/uL (150-450); RED BLOOD COUNT 4.71 10^6/uL (4.30-6.10); WHITE BLOOD COUNT 7.1 10^3/uL (4.0-10.0)
[2021-06-25] MEDS ORDERED: SODIUM CHLORIDE 0.9% INJ 10 ML SYR IV ONE (15:00)
[2021-06-25] MEDS: BARICITINIB 2MG TABLET (OLUMIANT) FOR EUA PO SCH (15:02)
[2021-06-25] MEDS: FUROSEMIDE 40MG/4ML VIAL (J1940) IV SCH ×2 (15:03→23:29)
[2021-06-25 15:10] LABS: ALBUMIN 2.9 GM/DL (3.2-5.2); BILIRUBIN,TOTAL 0.6 MG/DL (0.2-1.0); CALCIUM LEVEL 8.7 MG/DL (8.8-10.2); CREATININE FOR GFR 1.53 MG/DL (0.70-1.30); GLOMERULAR FILTRATION RATE 46.5 (>35); MAGNESIUM LEVEL 2.7 MG/DL (1.8-2.4); POTASSIUM SERUM 4.9 MEQ/L (3.5-5.1); TOTAL PROTEIN 6.1 GM/DL (6.4-8.2)
[2021-06-25 15:14] LABS: FOLATE 9.4 NG/ML (>5.4)
[2021-06-25 16:00] VITALS: BP 104/68
[2021-06-25] MEDS: RIVAROXABAN 15 MG TAB (XARELTO) PO SCH (17:16)
[2021-06-25 20:00] VITALS: BP 112/76
[2021-06-25] MEDS: POTASSIUM CHLORIDE 10MEQ SR TABLET PO SCH (20:08)
[2021-06-25] MEDS: CARVedilol 12.5 MG TAB PO SCH (20:09)
[2021-06-25 22:00] VITALS: BP_SYST 112; BP_SYST 114; BP_SYST 116; BP_DIAS 68; BP_DIAS 70; BP_DIAS 76
[2021-06-26] VITALS (10 sets, daily range): BP systolic 99–125; BP diastolic 62–86
[2021-06-26 05:24] LABS: HEMATOCRIT 41.7 % (42.0-52.0); HEMOGLOBIN 13.7 g/dl (13.5-17.5); MEAN CORPUSCULAR HEMOGLOBIN 30.8 pg (27.0-33.0); MEAN CORPUSCULAR HGB CONC 32.9 g/dl (32.0-36.5); MEAN CORPUSCULAR VOLUME 93.7 fl (80.0-96.0); PLATELET COUNT, AUTOMATED 169 10^3/uL (150-450); RED BLOOD COUNT 4.45 10^6/uL (4.30-6.10); WHITE BLOOD COUNT 5.1 10^3/uL (4.0-10.0)
[2021-06-26 05:45] LABS: CALCIUM LEVEL 8.7 MG/DL (8.8-10.2); CREATININE FOR GFR 1.78 MG/DL (0.70-1.30); GLOMERULAR FILTRATION RATE 39.1 (>35); POTASSIUM SERUM 4.4 MEQ/L (3.5-5.1)
[2021-06-26] MEDS: dexameTHASONE 4 MG/ML 1ML VIAL (J1100 PER 1MG) IV SCH (08:39)
[2021-06-26] MEDS: ATORVASTATIN 20 MG TAB PO SCH (08:40)
[2021-06-26] MEDS: FUROSEMIDE 40MG/4ML VIAL (J1940) IV SCH ×2 (08:40→20:26)
[2021-06-26] MEDS: POTASSIUM CHLORIDE 10MEQ SR TABLET PO SCH ×2 (08:41→20:27)
[2021-06-26] MEDS: COMBIVENT RESPIMAT 100-20MCG INHALER 4GM INH SCH (08:41)
[2021-06-26] MEDS: MULTIVITAMINS/MINERALS THERAP 1 TAB PO SCH (08:41)
[2021-06-26] MEDS: THIAMINE 100 MG TAB PO SCH ×2 (08:41→20:27)
[2021-06-26] MEDS: BARICITINIB 2MG TABLET (OLUMIANT) FOR EUA PO SCH (08:41)
[2021-06-26] MEDS: FOLIC ACID 1 MG TAB PO SCH (08:41)
[2021-06-26] MEDS: CARVedilol 12.5 MG TAB PO SCH ×2 (10:15→20:27)
[2021-06-26] MEDS: TAMSULOSIN 0.4 MG CAP PO SCH (10:15)
[2021-06-26] MEDS: DIGOXIN INJ 0.5 MG/2 ML AMP (J1160) IV SCH ×2 (12:38→15:59)
[2021-06-26] MEDS: REMDESIVIR 100 MG in NS 250 ML IV SCH (13:28)
[2021-06-26] MEDS: SODIUM CHLORIDE 0.9% INJ 10 ML SYR IV SCH (15:06)
[2021-06-26] MEDS: RIVAROXABAN 15 MG TAB (XARELTO) PO SCH (17:43)
[2021-06-27] VITALS (7 sets, daily range): BP systolic 100–125; BP diastolic 68–86
[2021-06-27 05:13] LABS: HEMATOCRIT 43.6 % (42.0-52.0); HEMOGLOBIN 14.6 g/dl (13.5-17.5); MEAN CORPUSCULAR HEMOGLOBIN 30.7 pg (27.0-33.0); MEAN CORPUSCULAR HGB CONC 33.5 g/dl (32.0-36.5); MEAN CORPUSCULAR VOLUME 91.8 fl (80.0-96.0); PLATELET COUNT, AUTOMATED 194 10^3/uL (150-450); RED BLOOD COUNT 4.75 10^6/uL (4.30-6.10); WHITE BLOOD COUNT 6.4 10^3/uL (4.0-10.0)
[2021-06-27 05:29] LABS: CALCIUM LEVEL 8.6 MG/DL (8.8-10.2); CREATININE FOR GFR 2.07 MG/DL (0.70-1.30); GLOMERULAR FILTRATION RATE 32.8 (>35); POTASSIUM SERUM 4.8 MEQ/L (3.5-5.1)
[2021-06-27] MEDS: POTASSIUM CHLORIDE 10MEQ SR TABLET PO SCH (07:20)
[2021-06-27] MEDS ORDERED: DIGOXIN 0.125 MG TAB PO SCH (09:00)
[2021-06-27] MEDS ORDERED: ASPIRIN 81 MG CHEW TABLET PO SCH (09:00)
[2021-06-27] MEDS: dexameTHASONE 4 MG/ML 1ML VIAL (J1100 PER 1MG) IV SCH (09:38)
[2021-06-27] MEDS: FUROSEMIDE 40MG/4ML VIAL (J1940) IV SCH (09:38)
[2021-06-27] MEDS: CARVedilol 12.5 MG TAB PO SCH (09:39)
[2021-06-27] MEDS: BARICITINIB 2MG TABLET (OLUMIANT) FOR EUA PO SCH (09:41)
[2021-06-27] MEDS: TAMSULOSIN 0.4 MG CAP PO SCH (09:42)
[2021-06-27] MEDS: ATORVASTATIN 20 MG TAB PO SCH (09:43)
[2021-06-27] MEDS: THIAMINE 100 MG TAB PO SCH (09:43)
[2021-06-27] MEDS: MULTIVITAMINS/MINERALS THERAP 1 TAB PO SCH (09:44)
[2021-06-27] MEDS: FOLIC ACID 1 MG TAB PO SCH (09:45)
[2021-06-27] MEDS: COMBIVENT RESPIMAT 100-20MCG INHALER 4GM INH SCH (10:40)
[2021-06-27] MEDS: REMDESIVIR 100 MG in NS 250 ML IV SCH (13:24)
[2021-06-27] MEDS: SODIUM CHLORIDE 0.9% INJ 10 ML SYR IV SCH (14:00)
[2021-06-27] MEDS ORDERED: ONDANSETRON 4MG/2ML VIAL IV PRN (15:35)
[2021-06-27] MEDS ORDERED: HYOSCYAMINE SULFATE 0.125 MG SUBL TABLET PO PRN (15:35)
[2021-06-27] MEDS ORDERED: BISACODYL 10 MG SUPP PR PRN (15:35)
[2021-06-27] MEDS ORDERED: ACETAMINOPHEN 650 MG SUPP PR PRN (15:35)
[2021-06-27] MEDS ORDERED: ACETAMINOPHEN TAB 650MG DOSE (2X325MG) PO PRN (15:35)
[2021-06-27] MEDS ORDERED: FLEET ENEMA PR PRN (15:35)
[2021-06-27] MEDS ORDERED: ONDANSETRON 4 MG ORAL DISINTEGRATING TAB PO PRN (15:35)
[2021-06-27] MEDS ORDERED: LORazepam 1 MG TAB PO PRN (15:35)
[2021-06-27] MEDS ORDERED: MORPHINE SULFATE ORAL SOLN 10 MG/5 ML UD SL PRN (15:35)
[2021-06-27] MEDS: SCOPOLAMINE 1MG TRANSDERMAL PATCH TOP PRN (16:12)
[2021-06-27] MEDS: MORPHINE 2 MG/ML 1ML VIAL (J2270) IV PRN (16:12)
[2021-06-27] MEDS ORDERED: LORazepam 2 MG/ML VIAL As Ordered ONE (16:20)
[2021-06-27] MEDS: LORazepam 2 MG/ML VIAL IV PRN (16:26)
[2021-06-28] MEDS: COMBIVENT RESPIMAT 100-20MCG INHALER 4GM INH SCH (09:00)
[2021-06-29] MEDS: COMBIVENT RESPIMAT 100-20MCG INHALER 4GM INH SCH (09:00)
[2021-06-30] MEDS: COMBIVENT RESPIMAT 100-20MCG INHALER 4GM INH SCH (09:00)
[2021-06-30] MEDS: SCOPOLAMINE 1MG TRANSDERMAL PATCH TOP PRN (13:52)
[2021-06-30] MEDS: ATROPINE SULFATE 1% OP SOLN 2 ML BTL SL PRN (17:12)
[2021-07-01] MEDS: COMBIVENT RESPIMAT 100-20MCG INHALER 4GM INH SCH (09:00)
[2021-07-01] MEDS: MORPHINE 2 MG/ML 1ML VIAL (J2270) IV PRN (10:37)
[2021-07-01] MEDS: ATROPINE SULFATE 1% OP SOLN 2 ML BTL SL PRN (10:37)
[2021-07-02] MEDS: MORPHINE 2 MG/ML 1ML VIAL (J2270) IV PRN (02:51)
[2021-07-02] MEDS: COMBIVENT RESPIMAT 100-20MCG INHALER 4GM INH SCH (10:16)
[2021-07-02] MEDS: LORazepam 2 MG/ML VIAL IV PRN (20:33)
[2021-07-03] MEDS: COMBIVENT RESPIMAT 100-20MCG INHALER 4GM INH SCH (09:00)
== END 2021-07-04 03:45 | disposition expired | DRG 177 ==
LOC: M ED 18:05 → M ED INP 06-25 01:16 → ENRESERV 06-25 10:49 → M ICU 06-25 11:50 → M 4MAIN 06-27 17:30
PROVIDERS: ADMIT Family Medicine; ATTEND Internal Medicine
PROC: 3E0333Z Introduction of Anti-inflammatory into Peripheral Vein, Percutaneous Approach (ICD-10-PCS; principal; 2021-06-25)
PROC: XW033E5 Introduction of Remdesivir Anti-infective into Peripheral Vein, Percutaneous Approach, New Technology Group 5 (ICD-10-PCS; 2021-06-25)
DX: U07.1 COVID-19 (principal); J96.01 Acute respiratory failure with hypoxia; I50.23 Acute on chronic systolic (congestive) heart failure; N17.9 Acute kidney failure, unspecified; R64 Cachexia; Z68.1 Body mass index [BMI] 19.9 or less, adult; Z91.19 Patient's noncompliance with other medical treatment and regimen; Z99.81 Dependence on supplemental oxygen; I48.91 Unspecified atrial fibrillation; N18.32 Chronic kidney disease, stage 3b; J44.9 Chronic obstructive pulmonary disease, unspecified; I25.10 Atherosclerotic heart disease of native coronary artery without angina pectoris; Z95.5 Presence of coronary angioplasty implant and graft; Z79.82 Long term (current) use of aspirin; Z79.899 Other long term (current) drug therapy; Z79.01 Long term (current) use of anticoagulants; F10.10 Alcohol abuse, uncomplicated; Z72.3 Lack of physical exercise; R53.1 Weakness